=== PATIENT | male | born 1945 | race Caucasian/White ===

== ENCOUNTER 2016-04-25 12:35 | Inpatient (IN) | payer MEDICARE ==
[2016-04-25] MEDS ORDERED: ASPIRIN 325 MG TAB PO STA (13:44)
--- NOTE | 2016-04-25 13:47 | ED ---
General Adult HPI - General Chief complaint: Upper Respiratory Infection Stated complaint: Coughing,GUANACO Time Seen by Provider: 04/25/16 13:22 Source: patient Mode of arrival: ambulatory Limitations: no limitations - History of Present Illness Initial comments: 71-year-old male presenting for evaluation of 2 weeks URI symptoms. He states that he was evaluated by his primary care physician at the onset and was given a 10 day course of unknown antibiotics which he completed. His symptoms did not improve and he went back to his primary care physician once again and was given a Z-Bakari and steroid shot. Since then his symptoms have continued to worsen with productive cough of clear sputum with occasional minimal blood. He further states there is associated heaviness worse on the right compared to the left without radiation. He denies any fevers or chills but admits to occasionally being diaphoretic. Patient is on home oxygen that it previously been 2 L and was switched to 1 L. Significant past medical history includes a right lower lobe lobectomy in February and he takes L request for her A. fib with RVR. He has had his influenza shot and pneumonia shot this year. Attempts to control symptoms with nebulized breathing treatments have been unsuccessful - Related Data Home Medications Medication Instructions Recorded Confirmed Pantoprazole Sodium [Protonix] 40 mg PO DAILY 12/15/15 04/25/16 amLODIPine BESYLATE/BENAZEPRIL 1 cap PO QAM 12/15/15 04/25/16 [Lotrel 5-10 mg Capsule] Cholecalciferol [Vitamin D3] 1,000 unit PO DAILY 02/20/16 04/25/16 Cinnamon Bark [Cinnamon] 500 mg PO DAILY 02/20/16 04/25/16 L.acidoph,Paracasei, B.lactis 1 tab PO DAILY 02/20/16 04/25/16 [Probiotic] Atorvastatin [Lipitor] 40 mg PO HS 02/27/16 04/25/16 Acetaminophen Tab [Tylenol Tab] 1,000 mg PO Q6HR PRN 04/25/16 04/25/16 Azithromycin [Zithromax] 500 mg PO DAILY 04/25/16 04/25/16 Diphenox-Atrop 2.5-0.025 mg 2 tab PO BID PRN 04/25/16 04/25/16 [Lomotil] Fluticasone/Salmeterol [Advair 1 inhalation PO RT-BID 04/25/16 04/25/16 500-50 Diskus] Lactobacillus Acidoph & Bulgar 1 packet PO DAILY 04/25/16 04/25/16 [Lactinex] Metoprolol Tartrate [Lopressor] 25 mg PO DAILY 04/25/16 04/25/16 Naproxen Sodium [Aleve] 220 mg PO Q12H PRN 04/25/16 04/25/16 hydrOXYzine PAMOATE [Vistaril] 25 - 50 mg PO QID PRN 04/25/16 04/25/16 Previous Rx's Medication Instructions Recorded Apixaban [Eliquis] 5 mg PO BID #60 tab 03/06/16 Citalopram Hydrobromide [CeleXA] 20 mg PO QAM tab 03/06/16 Dicyclomine [Bentyl] 10 mg PO BID cap 03/06/16 Digoxin [Lanoxin] 125 mcg PO DAILY #30 tab 03/06/16 Docusate [Colace] 100 mg PO DAILY PRN #0 cap 03/06/16 Doxepin [SINEquan] 20 mg PO HS cap 03/06/16 Ipratropium-Albuterol Nebulize 3 ml INHALATION RT-Q2H PRN 120 Days 03/06/16 [Duoneb 0.5 mg-3 mg/3 ml Soln] Sodium Chloride 0.65% Nasal [Deep 2 spray NASAL QID PRN #0 spray 03/06/16 Sea] Tamsulosin [Flomax] 0.4 mg PO QAM cap.er.24h 03/06/16 Thiamine [Vitamin B-1] 100 mg PO BID tab 03/06/16 rOPINIRole HCL [Requip] 1 mg PO HS tab 03/06/16 traMADol HCl [Ultram] 50 mg PO QID PRN #60 tab 03/06/16 Allergies Allergy/AdvReac Type Severity Reaction Status Date / Time iodine Allergy Nausea Verified 04/25/16 13:53 hydrocodone [From [place]] AdvReac Unknown Verified 04/25/16 13:53 Review of Systems ROS Statement: Those systems with pertinent positive or pertinent negative responses have been documented in the HPI. General: Patient denies fever, chills,nausea, or vomiting. HEENT: No visual changes. No eye pain. No nasal symptoms. No dysphagia.No odynophagia. No ENT pain. Cardiac: Right chest heaviness. No palpitations. Positive diaphoresis. Pulmonary; positive exertional shortness of breath and with prolonged coughing. Productive cough of clear sputum with an occasion of minimal hemoptysis GI: No abdominal pain. No diarrhea. No constipation. No bowel habit changes. No melena. No hematochezia. : No dysuria.No hematuria. No hesitancy. No urgency. No renal lithiasis history. Musculoskeletal: No musculoskeletal pain. Orthopedic: Denies fracture history. Integumentary: Denies rash. Denies pruritis. Neurologic: Denies any lateralizing weakness. Denies numbness. Denies tingling. No seizure activity. Denies TIA or CVA. Heme/Onc: Denies anemia. Denies cancer. Denies adenopathy. ROS Other: All systems not noted in ROS Statement are negative. Past Medical History Past Medical History: Coronary Artery Disease (CAD), Hyperlipidemia, Hypertension, Thyroid Disorder Additional Past Medical History / Comment(s): LOBECTOMY FOR LUNG CANCER History of Any Multi-Drug Resistant Organisms: None Reported Past Surgical History: Adenoidectomy, Appendectomy, Cholecystectomy, Heart Catheterization With Stent, Tonsillectomy Additional Past Surgical History / Comment(s): bilateral knee surgery, CARDIAC STENT- -2007, 02-27-16 ROBOTIC ASSISTED RT THOROSCOPY/RT UPPER LOBECTOMY / LYMPH NODE DISECTION. Past Anesthesia/Blood Transfusion Reactions: No Reported Reaction Date of Last Stent Placement:: 2007 Past Psychological History: Anxiety Smoking Status: Former smoker Past Alcohol Use History: Daily Additional Past Alcohol Use History / Comment(s): 2-3 beers per day Past Drug Use History: None Reported - Past Family History Mother Family Medical History: Cancer Additional Family Medical History / Comment(s): breast and lung cancer General Exam - General Exam Comments Initial Comments: General: The patient is awake and alert, in no distress, and does not appear acutely ill. Eye: Pupils are equal, round and reactive to light, extra-ocular movements are intact; there is normal conjunctiva bilaterally. No signs of icterus. Ears, nose, mouth and throat: There are moist mucous membranes and no oral lesions. Neck: The neck is supple, there is no tenderness or JVD. Cardiovascular: There is a regular rate and rhythm. No murmur, rub or gallop is appreciated. Respiratory: Lungs are clear to auscultation, respirations are non-labored, breath sounds are equal. No wheezes, stridor, rales, or rhonchi. Gastrointestinal: Soft, non-distended, non-tender abdomen without masses or organomegaly noted. There is no rebound or guarding present. No CVA tenderness. Bowel sounds are unremarkable. Back: There is no tenderness to palpation in the midline. There is no obvious deformity. No rashes noted. Musculoskeletal: Normal ROM, no tenderness, There is no pedal edema. There is no calf tenderness or swelling. Sensation intact. Pulses equal bilaterally 2+. Neurological: CN II-XII intact, There are no obvious motor or sensory deficits. Coordination appears grossly intact. Speech is normal. Skin: Skin is warm and dry and no rashes or lesions are noted. Psychiatric: Cooperative, appropriate mood & affect, normal judgment. Limitations: no limitations Course Vital Signs 04/25/16 04/25/16 04/25/16 13:07 13:23 17:51 Temperature 97.9 F Pulse Rate 55 L 62 Respiratory 20 18 18 Rate Blood Pressure 106/58 111/64 O2 Sat by Pulse 95 99 Oximetry 04/25/16 22:57 Temperature 97.0 F L Pulse Rate 77 Respiratory 18 Rate Blood Pressure 139/75 O2 Sat by Pulse 92 L Oximetry EKG Findings - EKG Comments: EKG Findings:: EKG shows sinus bradycardia with a rate of 54, MICHA 174, QRS 90, QT/QTC 404/383 Medical Decision Making - Medical Decision Making 71-year-old male with a past medical history of lobectomy in February and taking liquids for proximal atrial fibrillation presented for evaluation of URI symptoms and shortness of breath for the last 2 weeks. He has been seen by his primary care physician and treated with steroids and 2 courses of antibiotics( Levaquin and a Z-Bakari) without any improvement in his symptoms. Concern for pneumonia versus ACS versus PE among others. We'll obtain labs, EKG, chest x- ray, and provided aspirin. Labs revealed a leukocytosis but otherwise no significant abnormalities, including a normal d-dimer. Chest x-ray is read as: Correlate to exclude pulmonary venous hypertension and interstitial edema. Chronic elevation of the hemidiaphragm. Patient was walked in the hallway and had an immediate desaturation from 95% down to 84% oxygenation. Upon resting his oxygen saturation improved back to normal. Given his significant past medical history of lobectomy and 2 weeks of shortness of breath with productive cough and and an episode of hemoptysis will admit for further care and evaluation. As informed of these results and this decision and agreed with this plan of care. Dr. Marcial accepted the admission without any further request. Admission order placed in bed request submitted. - Lab Data Result diagrams: 04/25/16 14:09 04/25/16 14:09 Lab Results 04/25/16 04/25/16 04/25/16 Range/Units 14:09 14:09 14:09 WBC 15.0 H (3.8-10.6) k/uL RBC 4.82 (4.30-5.90) m/uL Hgb 14.4 (13.0-17.5) gm/dL Hct 43.7 (39.0-53.0) % MCV 90.7 (80.0-100.0) fL MCH 29.9 (25.0-35.0) pg MCHC 32.9 (31.0-37.0) g/dL RDW 13.5 (11.5-15.5) % Plt Count 242 (150-450) k/uL Neutrophils % 78 % Lymphocytes % 12 % Monocytes % 7 % Eosinophils % 1 % Basophils % 1 % Neutrophils # 11.6 H (1.3-7.7) k/uL Lymphocytes # 1.7 (1.0-4.8) k/uL Monocytes # 1.1 H (0-1.0) k/uL Eosinophils # 0.2 (0-0.7) k/uL Basophils # 0.1 (0-0.2) k/uL PT (9.0-12.0) sec INR (<1.1) APTT (22.0-30.0) sec D-Dimer (<0.60) mg/L FEU Sodium 141 (137-145) mmol/L Potassium 4.6 (3.5-5.1) mmol/L Chloride 106 (98-107) mmol/L Carbon Dioxide 24 (22-30) mmol/L Anion Gap 11 mmol/L BUN 17 (9-20) mg/dL Creatinine 0.84 (0.66-1.25) mg/dL Est GFR (MDRD) Af Amer >60 (>60 ml/min/1.73 sqM) Est GFR (MDRD) Non-Af >60 (>60 ml/min/1.73 sqM) Glucose 82 (74-99) mg/dL Calcium 9.3 (8.4-10.2) mg/dL Troponin I (0.000-0.034) ng/mL NT-Pro-B Natriuret Pep pg/mL Influenza Type A RNA Not Detected (Not Detectd) Influenza Type B (PCR) Not Detected (Not Detectd) 04/25/16 04/25/16 04/25/16 Range/Units 14:09 14:09 14:09 WBC (3.8-10.6) k/uL RBC (4.30-5.90) m/uL Hgb (13.0-17.5) gm/dL Hct (39.0-53.0) % MCV (80.0-100.0) fL MCH (25.0-35.0) pg MCHC (31.0-37.0) g/dL RDW (11.5-15.5) % Plt Count (150-450) k/uL Neutrophils % % Lymphocytes % % Monocytes % % Eosinophils % % Basophils % % Neutrophils # (1.3-7.7) k/uL Lymphocytes # (1.0-4.8) k/uL Monocytes # (0-1.0) k/uL Eosinophils # (0-0.7) k/uL Basophils # (0-0.2) k/uL PT 10.3 (9.0-12.0) sec INR 1.0 (<1.1) APTT 22.5 (22.0-30.0) sec D-Dimer 0.24 (<0.60) mg/L FEU Sodium (137-145) mmol/L Potassium (3.5-5.1) mmol/L Chloride (98-107) mmol/L Carbon Dioxide (22-30) mmol/L Anion Gap mmol/L BUN (9-20) mg/dL Creatinine (0.66-1.25) mg/dL Est GFR (MDRD) Af Amer (>60 ml/min/1.73 sqM) Est GFR (MDRD) Non-Af (>60 ml/min/1.73 sqM) Glucose (74-99) mg/dL Calcium (8.4-10.2) mg/dL Troponin I <0.012 (0.000-0.034) ng/mL NT-Pro-B Natriuret Pep 71 pg/mL Influenza Type A RNA (Not Detectd) Influenza Type B (PCR) (Not Detectd) Disposition Clinical Impression: Shortness of breath, Hypoxia Disposition: ADMITTED IP TO THIS [facility] Decision to Admit Reason: Admit from EC Decision Date: 04/25/16 Decision Time: 17:06
[2016-04-25 14:29] LABS: Basophils # (A) 0.1 k/uL (0-0.2); Basophils % (A) 1 %; CH 30.7; CHCM 34.1; Eosinophils # (A) 0.2 k/uL (0-0.7); Eosinophils % (A) 1 %; HCT 43.7 % (39.0-53.0); HDW 2.91; HGB 14.4 gm/dL (13.0-17.5); Luc # (Auto) 0.29; Luc % (Auto) 2; Lymphocytes # (A) 1.7 k/uL (1.0-4.8); Lymphocytes % (A) 12 %; MCH 29.9 pg (25.0-35.0); MCHC 32.9 g/dL (31.0-37.0); MCV 90.7 fL (80.0-100.0); Mean Platelet Volume 8.7; Monocytes # (A) 1.1 k/uL (0-1.0); Monocytes % (A) 7 %; Neutrophils # (A) 11.6 k/uL (1.3-7.7); Neutrophils % (A) 78 %; RBC 4.82 m/uL (4.30-5.90); RDW 13.5 % (11.5-15.5); WBC (Perox) 14.81
[2016-04-25 14:39] LABS: Anion Gap 11 mmol/L; Blood Urea Nitrogen 17 mg/dL (9-20); Calcium 9.3 mg/dL (8.4-10.2); Carbon Dioxide 24 mmol/L (22-30); Chloride 106 mmol/L (98-107); Glucose 82 mg/dL (74-99); Non-African American GFR(MDRD) >60 (>60 ml/min/1.73 sqM); Potassium 4.6 mmol/L (3.5-5.1); Sodium 141 mmol/L (137-145)
[2016-04-25 14:46] LABS: Partial Thromboplastin Time 22.5 sec (22.0-30.0); Prothrombin Time 10.3 sec (9.0-12.0)
--- NOTE | 2016-04-25 14:47 | XR ---
EXAMINATION TYPE: XR chest 2V DATE OF EXAM: 04/25/2016 2:27 PM COMPARISON: Prior chest x-ray third March 2016 HISTORY: Cough and shortness of breath TECHNIQUE: Frontal and lateral views of the chest are obtained. FINDINGS: There is chronic elevation of the right hemidiaphragm. Cardiomediastinal silhouette, pulmo nary vascularity and deann are stable. Interstitium is increased. No evident pneumothorax or pleural e ffusion. IMPRESSION: Correlate to exclude pulmonary venous hypertension and interstitial edema. Chronic eleva tion of the hemidiaphragm, follow-up recommended.
[2016-04-25] MEDS ORDERED: ONDANSETRON 4 MG/2 ML VIAL IVP PRN (16:13)
[2016-04-25] MEDS ORDERED: ACETAMINOPHEN TAB 325 MG TAB PO PRN (16:13)
[2016-04-25] MEDS ORDERED: NALOXONE 0.4 MG/ML 1 ML VIAL IV PRN (16:13)
[2016-04-25] MEDS ORDERED: DIPHENOX-ATROP 2.5-0.025 MG 1 EACH TAB PO PRN (16:16)
[2016-04-25] MEDS: SYMBICORT 160-4.5 MCG INHALER INHALATION SCH (22:43)
[2016-04-26] MEDS: DICYCLOMINE 10 MG CAP PO SCH ×3 (01:13→21:29)
[2016-04-26] MEDS: APIXABAN 5 MG TAB PO SCH ×3 (01:13→22:21)
[2016-04-26] MEDS: THIAMINE 100 MG TAB PO SCH ×3 (01:14→21:29)
[2016-04-26] MEDS: ATORVASTATIN 40 MG TAB PO SCH ×2 (01:14→22:21)
[2016-04-26] MEDS: DOXEPIN 10 MG CAP PO SCH ×2 (01:14→22:21)
[2016-04-26] MEDS: SYMBICORT 160-4.5 MCG INHALER INHALATION SCH ×2 (06:27→20:28)
[2016-04-26] MEDS: IPRATROPIUM-ALBUTEROL 3 ML NEB INHALATION PRN ×2 (06:27→10:46)
[2016-04-26 06:32] VITALS: BMI 27.1
[2016-04-26 07:43] LABS: Basophils # (A) 0.1 k/uL (0-0.2); Basophils % (A) 1 %; CH 30.2; CHCM 32.9; Eosinophils # (A) 0.3 k/uL (0-0.7); Eosinophils % (A) 2 %; HCT 46.4 % (39.0-53.0); HDW 2.88; Luc # (Auto) 0.21; Luc % (Auto) 2; Lymphocytes # (A) 1.7 k/uL (1.0-4.8); Lymphocytes % (A) 12 %; MCH 29.7 pg (25.0-35.0); MCHC 32.3 g/dL (31.0-37.0); Mean Platelet Volume 8.8; Monocytes % (A) 7 %; Neutrophils # (A) 10.6 k/uL (1.3-7.7); Neutrophils % (A) 77 %; RBC 5.04 m/uL (4.30-5.90); RDW 13.5 % (11.5-15.5); WBC 13.8 k/uL (3.8-10.6); WBC (Perox) 13.23
[2016-04-26 07:59] LABS: Anion Gap 9 mmol/L; Blood Urea Nitrogen 18 mg/dL (9-20); Calcium 9.2 mg/dL (8.4-10.2); Carbon Dioxide 27 mmol/L (22-30); Chloride 104 mmol/L (98-107); Glucose 113 mg/dL (74-99); Non-African American GFR(MDRD) >60 (>60 ml/min/1.73 sqM); Phosphorous 3.9 mg/dL (2.5-4.5); Potassium 3.9 mmol/L (3.5-5.1); Sodium 140 mmol/L (137-145)
--- NOTE | 2016-04-26 08:19 | XR ---
EXAMINATION TYPE: XR chest 2V DATE OF EXAM: 04/26/2016 8:13 AM COMPARISON: 04/25/2016 HISTORY: Shortness of breath TECHNIQUE: Frontal and lateral views of the chest are obtained. FINDINGS: Scattered senescent parenchymal changes noted. Hyperinflation compatible with COPD. There is prominen ce of the pulmonary interstitium. Chronic elevation right hemidiaphragm. No evidence for infiltrate. No evidence for atelectasis. Heart size is stable. Mediastinal structures are stable and grossly unremarkable. No evidence for hilar prominence. Degenerative changes dorsal spine. IMPRESSION: 1. No evidence for acute pulmonary disease.
[2016-04-26] MEDS: amLODIPine 5 MG TAB PO SCH (09:08)
[2016-04-26] MEDS: TAMSULOSIN 0.4 MG CAP.ER.24H PO SCH (09:08)
[2016-04-26] MEDS: PANTOPRAZOLE 40 MG TABLET PO SCH (09:08)
[2016-04-26] MEDS: CITALOPRAM HYDROBROMIDE 20 MG TAB PO SCH (09:09)
[2016-04-26] MEDS: AZITHROMYCIN 500 MG TAB PO SCH (09:09)
[2016-04-26] MEDS: METOPROLOL TARTRATE 25 MG TAB PO SCH (09:10)
[2016-04-26] MEDS: DIGOXIN 125 MCG TAB PO SCH (09:10)
[2016-04-26] MEDS: LISINOPRIL 10 MG TAB PO SCH (09:10)
[2016-04-26] MEDS ORDERED: SODIUM CHLORIDE 0.65% NASAL SPRAY 44 ML BTL NASAL PRN (12:06)
[2016-04-26] MEDS ORDERED: traMADol 50 MG TAB PO PRN (12:06)
[2016-04-26] MEDS ORDERED: IPRATROPIUM-ALBUTEROL 3 ML NEB INHALATION SCH (12:15)
[2016-04-26] MEDS: methylPREDNISolone SOD SUCCI 40 MG/ML 1 ML VIAL IV SCH ×2 (13:45→23:40)
[2016-04-26] MEDS: LORATADINE 10 MG TAB PO SCH ×2 (13:50→21:30)
[2016-04-26] MEDS: IPRATROPIUM-ALBUTEROL 3 ML NEB INHALATION SCH ×3 (15:20→20:28)
[2016-04-26] MEDS: INSULIN LISPRO (humaLOG) 300 UNIT/3 ML VIAL SQ SCH ×2 (17:23→21:30)
[2016-04-26 17:24] LABS: Glucose,Whole Blood 140 mg/dL (75-99)
--- NOTE | 2016-04-26 17:59 | HP ---
DATE OF ADMISSION: 04/25/2016 PRESENTING COMPLAINT: Cough and wheezing. HISTORY OF PRESENTING COMPLAINT: This is a very pleasant 71-year-old patient who follows with Dr. Shane. Patient's chronic stable medical conditions include restless leg syndrome, essential hypertension, benign prostatic hypertrophy, GERD, chronic insomnia, depression, coronary artery disease with history of stent to the right coronary artery, thyroid nodule, biopsy negative, irritable bowel syndrome, paroxysmal atrial fibrillation on Eliquis. Patient had right upper lobe lobectomy carried out by Dr. Paniagua on February 26 right upper lobe. Patient normally on home oxygen 1 liter. Three weeks ago, the patient started off with a cough. Some clear sputum production and wheezing. Was given a steroid antibiotics shot and also shot ( ) the Levaquin and did feel better for 2 to 3 days and actually became worse again. The patient's developed cold-like symptoms. The patient again has got having bouts of coughing, especially when he talks. Some clear sputum. No fever. Appetite is maintained. Oxygen requirements has gone up to 2 liters. Gets short of breath when he takes of his oxygen and decided to come in. REVIEW OF SYSTEMS: CONSTITUTIONAL: Tired. HEENT: Nasal stuffiness. RESPIRATORY: As above. CARDIOVASCULAR: None. GASTROINTESTINAL: None. GENITOURINARY: None. MUSCULOSKELETAL: None. Dermatologic: None. HEMATOLOGIC: None. LYMPHATICS: None. PSYCHIATRY: Some anxiety. NEUROLOGICAL: None. Past medical history of paroxysmal atrial fibrillation and right superficial thrombophlebitis of the arm, chronic respiratory failure, on 1 liter of oxygen at home. Irritable bowel syndrome, thyroid nodule, biopsy negative, coronary artery disease with prior history of stent to the RCA, chronic obstructive pulmonary disease in an ex-smoker, depression, chronic insomnia, GERD, BPH, essential hypertension, restless leg syndrome, chronically elevated right diaphragm, wedge resection right upper lobe mass, partial pneumonectomy. PAST SURGICAL HISTORY: Adenoidectomy, appendectomy, cholecystectomy, cardiac cath with stent, bilateral knee surgery, cardiac stent to RCA 2007. SOCIAL HISTORY: The patient stopped smoking about 6 years ago The patient smoked an average a pack and a half day for about 45 years, stopped about 6 to ago, drinks about 2 to 3 beers a day. . Now retired. Family history of breast and lung cancer. HOME MEDICATIONS: 1. ( ) spray q.i.d. p.r.n. 2. Aleve 220 mg p.o. q.12 p.r.n. 3. Thiamine 100 mg p.o. b.i.d. 4. Tylenol 1000 mg q.6 p.r.n. 5. Cinnamon ( ) mg p.o. daily. 6. Vitamin D 3000 units p.o. daily. 7. Ultram 50 milligrams p.o. q.i.d. p.r.n. 8. Requip 1 mg p.o. q.h.s. 9. Flomax 0.4 mg p.o. daily. 10. Probiotic 1 tablet p.o. daily. 11. Vistaril ( ) mg p.o. t.i.d. p.r.n. 12. Protonix 40 mg p.o. daily. 13. Lactinex one packet p.o. daily. 14. Duoneb q.2 p.r.n. 15. Eliquis 5 mg p.o. b.i.d. 16. Sinequan 220 mg q.h.s. 17. Colace 100 mg p.o. daily p.r.n. 18. Lomotil 2 tablets p.o. b.i.d. p.r.n. 19. Digoxin 125 mcg p.o. daily. 20. Bentyl 10 mg p.o. b.i.d. 21. Celexa 20 mg p.o. daily. 22. Lotrel 5/10 1 tablet p.o. daily. 23. Advair 550, 1 puff b.i.d. 24. Lipitor 40 mg p.o. q.h.s. 25. Zithromax 500 mg p.o. daily. 26. Lopressor 25 p.o. daily. ALLERGIES TO IODINE HYDROCODONE. On examination vital signs on presentation: Temperature 97.9, pulse 55, respiration 20, blood pressure 106/58, pulse ox 95% on 1 liters. GENERAL APPEARANCE: Average built, sitting up, not in distress. EYES: Pupils equal. Conjunctivae normal. HEENT: Oral cavity normal. External appearance of nose and ears normal. NECK: JVD not raised. Mass not palpable. RESPIRATORY: Effort increased. LUNGS: Diminished breath sounds. Prolonged expiration. CARDIOVASCULAR: First and second sounds normal. No edema. ABDOMEN: Soft, nontender. Liver and spleen not palpable. LYMPHATIC: No lymph nodes palpable in neck or axillae. PSYCHIATRY: Alert and oriented times three. Mood and affect normal. NEUROLOGICAL: Grossly intact grossly intact. Power and sensation grossly intact. MUSCULOSKELETAL: Evidence of osteoarthritis especially in the hands. Dermatological: Some bruising in multiple places. INVESTIGATIONS: White count 15, hemoglobin 14.4. Potassium 4.6, BUN and creatinine are normal. Influenza negative. Chest x-ray shows slightly elevated right diaphragm, prominent radicular shadow. ASSESSMENT: 1. Acute on chronic obstructive pulmonary disease exacerbation probably from bilateral viral pneumonitis. Patient has no fever, sputum is clear and doubt secondary bacterial infection at this point. 2. History of right upper lobe lobectomy. 3. Chronically elevated right diaphragm following cardiothoracic surgery. 4. Restless leg syndrome, chronic. 5. Essential hypertension, chronic. 6. Benign prostatic hypertrophy, chronic. 7. Gastroesophageal reflux disease, chronic. 8. Chronic insomnia, idiopathic. 9. Depression controlled, not otherwise specified. 10. Coronary artery disease with prior history of stent of the RCA in 2007. 11. Thyroid nodule, biopsy negative, chronic. 12. Irritable bowel syndrome, chronic. 13. Chronic hypoxic respiratory failure on home at 1 liter of oxygen. 14. Paroxysmal atrial fibrillation, currently in sinus rhythm, chronically on Eliquis. PLAN: Care was discussed at length with the patient and . The patient will be put on bronchodilators, IV steroids. Home medications will be resumed. Dr. Roldan will be consulted. ( ) pneumonitis, this may take a while for these symptoms to resolve. Otherwise, empiric treatment is to continue.
[2016-04-26 20:22] LABS: Glucose,Whole Blood 153 mg/dL (75-99)
[2016-04-26 23:04] VITALS: RESP 18
[2016-04-27] MEDS: IPRATROPIUM-ALBUTEROL 3 ML NEB INHALATION SCH ×4 (01:55→12:07)
[2016-04-27 07:16] LABS: Glucose,Whole Blood 146 mg/dL (75-99)
[2016-04-27] MEDS: methylPREDNISolone SOD SUCCI 40 MG/ML 1 ML VIAL IV SCH (07:49)
[2016-04-27] MEDS: INSULIN LISPRO (humaLOG) 300 UNIT/3 ML VIAL SQ SCH ×2 (07:49→11:04)
[2016-04-27] MEDS: THIAMINE 100 MG TAB PO SCH (07:50)
[2016-04-27] MEDS: LISINOPRIL 10 MG TAB PO SCH (07:50)
[2016-04-27] MEDS: AZITHROMYCIN 500 MG TAB PO SCH (07:50)
[2016-04-27] MEDS: APIXABAN 5 MG TAB PO SCH (07:50)
[2016-04-27] MEDS: METOPROLOL TARTRATE 25 MG TAB PO SCH (07:50)
[2016-04-27] MEDS: TAMSULOSIN 0.4 MG CAP.ER.24H PO SCH (07:50)
[2016-04-27] MEDS: DIGOXIN 125 MCG TAB PO SCH (07:50)
[2016-04-27] MEDS: CITALOPRAM HYDROBROMIDE 20 MG TAB PO SCH ×2 (07:50→07:59)
[2016-04-27] MEDS: PANTOPRAZOLE 40 MG TABLET PO SCH (07:50)
[2016-04-27] MEDS: amLODIPine 5 MG TAB PO SCH (07:50)
[2016-04-27] MEDS: LORATADINE 10 MG TAB PO SCH (07:50)
[2016-04-27] MEDS: DICYCLOMINE 10 MG CAP PO SCH ×2 (07:50→08:00)
[2016-04-27 07:53] VITALS: BP 132/86; TEMP 97.7
[2016-04-27] MEDS: SYMBICORT 160-4.5 MCG INHALER INHALATION SCH (08:21)
--- NOTE | 2016-04-27 10:44 | P.CNPUL ---
History of Present Illness Consult date: 04/27/16 Requesting physician: Sanjeev Marcial Reason for consult: dyspnea, abnormal CXR/CT Chief complaint: Shortness of breath, cough, congestion History of present illness: This is a very pleasant 71-year-old gentleman who follows with Dr. Shane as his primary care physician. He has a history of coronary artery disease, hyperlipidemia, hypertension, thyroid disorder. He was also recently diagnosed with non-small cell lung cancer and is status post right upper lobectomy in February 2016 and has been following with Dr. Roldan in our office and saw him as recently as last week. At that time he was doing quite well however a few days later he developed increasing shortness of breath, cough and congestion. He also had issues with sinus congestion. He was treated at Dr. Shane's office with antibiotics and steroids 2 and didn't show much improvement and presented here to the emergency room for the same. He is seen today in consultation. He is x-ray quite improved now. He denies any worsening shortness of breath, cough or congestion. No fever chills or night sweats. His chest x-ray reveals no acute pulmonary process, chronically elevated right hemidiaphragm. Influenza screen was negative. He has been afebrile and maintaining good O2 saturations in the mid 90s on 2 L/m per nasal cannula. He is actually asking to go home. Review of Systems 14 point review of system was conducted. All negative other than as mentioned in HPI. Past Medical History Past Medical History: Coronary Artery Disease (CAD), Hyperlipidemia, Hypertension, Thyroid Disorder Additional Past Medical History / Comment(s): LOBECTOMY FOR LUNG CANCER History of Any Multi-Drug Resistant Organisms: None Reported Past Surgical History: Adenoidectomy, Appendectomy, Cholecystectomy, Heart Catheterization With Stent, Tonsillectomy Additional Past Surgical History / Comment(s): bilateral knee surgery, CARDIAC STENT- RCA-2007, 02-27-16 ROBOTIC ASSISTED RT THOROSCOPY/RT UPPER LOBECTOMY / LYMPH NODE DISECTION. Past Anesthesia/Blood Transfusion Reactions: No Reported Reaction Date of Last Stent Placement:: 2007 Past Psychological History: Anxiety Smoking Status: Former smoker Past Alcohol Use History: Daily Additional Past Alcohol Use History / Comment(s): 2-3 beers per day Past Drug Use History: None Reported - Past Family History Mother Family Medical History: Cancer Additional Family Medical History / Comment(s): breast and lung cancer Medications and Allergies Home Medications Medication Instructions Recorded Confirmed Type Pantoprazole Sodium [Protonix] 40 mg PO DAILY 12/15/15 04/25/16 History amLODIPine BESYLATE/BENAZEPRIL 1 cap PO QAM 12/15/15 04/25/16 History [Lotrel 5-10 mg Capsule] Cholecalciferol [Vitamin D3] 1,000 unit PO DAILY 02/20/16 04/25/16 History Cinnamon Bark [Cinnamon] 500 mg PO DAILY 02/20/16 04/25/16 History L.acidoph,Paracasei, B.lactis 1 tab PO DAILY 02/20/16 04/25/16 History [Probiotic] Atorvastatin [Lipitor] 40 mg PO HS 02/27/16 04/25/16 History Acetaminophen Tab [Tylenol Tab] 1,000 mg PO Q6HR PRN 04/25/16 04/25/16 History Azithromycin [Zithromax] 500 mg PO DAILY 04/25/16 04/25/16 History Diphenox-Atrop 2.5-0.025 mg 2 tab PO BID PRN 04/25/16 04/25/16 History [Lomotil] Fluticasone/Salmeterol [Advair 1 inhalation PO RT-BID 04/25/16 04/25/16 History 500-50 Diskus] Lactobacillus Acidoph & Bulgar 1 packet PO DAILY 04/25/16 04/25/16 History [Lactinex] Metoprolol Tartrate [Lopressor] 25 mg PO DAILY 04/25/16 04/25/16 History Naproxen Sodium [Aleve] 220 mg PO Q12H PRN 04/25/16 04/25/16 History hydrOXYzine PAMOATE [Vistaril] 25 - 50 mg PO QID PRN 04/25/16 04/25/16 History Allergies Allergy/AdvReac Type Severity Reaction Status Date / Time iodine Allergy Nausea Verified 04/25/16 13:53 hydrocodone [From [place]] AdvReac Unknown Verified 04/25/16 13:53 Physical Exam Vitals: Vital Signs Temp Pulse Pulse Resp BP Pulse Ox 04/27/16 08:36 84 04/27/16 08:21 84 96 04/27/16 07:00 97.7 F 84 18 132/86 91 L 04/26/16 23:03 98.2 F 79 18 116/64 90 L 04/26/16 20:43 80 04/26/16 20:28 78 04/26/16 15:31 80 04/26/16 15:20 80 04/26/16 15:00 98.3 F 68 16 109/67 94 L 04/26/16 10:56 84 04/26/16 10:46 82 Intake and Output 04/26/16 04/27/16 04/27/16 22:59 06:59 14:59 Intake Total 360 400 Balance 360 400 Intake: Oral 360 400 Other: Voiding Method Urinal Urinal # Voids 1 GENERAL EXAM: Alert, active, comfortable in no apparent distress. HEAD: Normocephalic. EYES: Normal reaction of pupils, equal size. NOSE: Clear with pink turbinates. THROAT: No erythema or exudates. NECK: No masses, no JVD. CHEST: No chest wall deformity. LUNGS: Equal air entry with no crackles, wheeze, rhonchi or dullness. Diminished in the right posterior base CVS: S1 and S2 normal with no audible murmurs, regular rhythm. ABDOMEN: No hepatosplenomegaly, normal bowel sounds, no guarding or rigidity. SPINE: No scoliosis or deformity SKIN: No rashes CENTRAL NERVOUS SYSTEM: No focal deficits, tone is normal in all 4 extremities. Extremities: There is no significant peripheral edema. No clubbing, no cyanosis. Peripheral pulses are intact. Results - Laboratory Findings CBC and BMP: 04/26/16 07:28 04/26/16 07:28 PT/INR, D-dimer PT 10.3 sec (9.0-12.0) 04/25/16 14:09 INR 1.0 (<1.1) 04/25/16 14:09 D-Dimer 0.24 mg/L FEU (<0.60) 04/25/16 14:09 Abnormal lab findings: Abnormal Labs 04/26/16 04/26/16 04/26/16 07:28 07:28 17:17 WBC 13.8 H Neutrophils # 10.6 H Glucose 113 H POC Glucose (mg/dL) 140 H 04/26/16 04/27/16 20:00 07:04 WBC Neutrophils # Glucose POC Glucose (mg/dL) 153 H 146 H - Diagnostic Findings Chest x-ray: image reviewed Assessment and Plan Plan: Impression: #1 Acute exacerbation of chronic obstructive pulmonary disease, complicated by purulent tracheobronchitis. No clear evidence of pneumonia. #2 Non-small cell lung cancer, status post right upper lobe resection in February 2016. #3 Postoperative right hemidiaphragmatic elevation secondary to volume loss in the setting of a right upper lobe resection. #4 Paroxysmal atrial fibrillation, rate controlled, on anticoagulation. #5 History of coronary artery disease. #6 Hyperlipidemia. #7 Hypertension. #8 Degenerative arthritis. Plan: The patient was seen and evaluated by Dr. Uribe. His chest x-ray and labs were reviewed. The patient is quite improved today as compared to yesterday. He is cleared for discharge from the pulmonary standpoint. He'll continue with his course of antibiotics, prednisone taper, Symbicort and bronchodilators. He'll follow-up with Dr. Roldan in our office in 1-2 weeks' time. He is encouraged to call sooner with any recurrence of symptoms or other questions or concerns.
[2016-04-27 10:56] LABS: Glucose,Whole Blood 102 mg/dL (75-99)
[2016-04-27 12:13] VITALS: PULSE 80
--- NOTE | 2016-04-28 13:55 | DS ---
DATE OF ADMISSION: 04/25/2016 DATE OF DISCHARGE: 04/27/2016 FINAL DIAGNOSES: 1. Acute chronic obstructive pulmonary disease exacerbation, possibly from bilateral viral pneumonitis. 2. History of right upper lobe lobectomy. 3. Chronically elevated right diaphragm. 4. Restless leg syndrome, chronic. 5. Essential hypertension, chronic. 6. Benign prostatic hypertrophy, chronic. 7. Gastroesophageal reflux disease, chronic. 8. Chronic insomnia, idiopathic. 9. Depression, controlled. 10. Coronary artery disease with prior history of stent to the right coronary artery in 2007. 11. Thyroid nodule, biopsy negative, chronic. 12. Irritable bowel syndrome, chronic. 13. Chronic hypoxic respiratory failure on home oxygen 1 L. 14. Paroxysmal atrial fibrillation, currently in sinus rhythm, chronically on Eliquis. HOSPITAL COURSE: This patient presented with COPD exacerbation secondary to viral pneumonitis. Responded well to nebulized bronchodilators, steroids. It was really felt that patient needed antibiotics. Seen by Dr. Uribe from Pulmonary. Doing better at the time of discharge. Care was discussed in detail with the patient. 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 On examination, lungs decreased breath sounds. Minimal wheezing. DISCHARGE MEDICATIONS: 1. Protonix 40 mg p.o. daily. 2. Lotrel 5-10 one capsule p.o. daily. 3. Vitamin D3 one thousand units p.o. daily. 4. Cinnamon 500 mg p.o. daily. 5. Probiotic 1 tablet p.o. daily. 6. Lipitor 40 mg p.o. q.h.s. 7. Eliquis 5 mg p.o. b.i.d. 8. Celexa 20 mg p.o. daily. 9. Digoxin 125 mcg p.o. daily. 10. Colace 100 mg p.o. daily. 11. Sinequan 20 mg q.h.s. 12. DuoNeb q.2 p.r.n. 13. Deep Sea spray q.i.d. p.r.n. 14. Flomax 0.4 mg p.o. daily. 15. Thiamine 100 mg p.o. b.i.d. 16. Requip 1 mg p.o. q.h.s. 17. Ultram 50 mg q.i.d. p.r.n. 18. Tylenol 1000 mg q.6 p.r.n. 19. Lomotil 2 tablets p.o. b.i.d. p.r.n. 20. Advair 500-50 one inhalation b.i.d. 21. Lactinex one packet p.o. daily. 22. Lopressor 25 p.o. daily. 23. Claritin 5 mg p.o. q.12. 24. Prednisone taper. Follow up with Dr. Shane on 04/29/2016. Follow up with Dr. Roldan 05/13/2016. Home oxygen 2 L. DC planning more than 35 minutes.
== END 2016-04-27 16:10 | disposition home or self-care (01) | DRG 190 ==
LOC: EC 12:35 → 4MS4W 16:19 → 5MS5E 04-26 01:37 → 5ONC 04-26 05:44
PROVIDERS: ADMIT Hospitalist; ATTEND Hospitalist
DX: J44.1 Chronic obstructive pulmonary disease with (acute) exacerbation (principal); J12.9 Viral pneumonia, unspecified; J96.11 Chronic respiratory failure with hypoxia; I48.0 Paroxysmal atrial fibrillation; Z99.81 Dependence on supplemental oxygen; G25.81 Restless legs syndrome; I10 Essential (primary) hypertension; F32.9 Major depressive disorder, single episode, unspecified; J44.0 Chronic obstructive pulmonary disease with (acute) lower respiratory infection; E78.5 Hyperlipidemia, unspecified; F51.04 Psychophysiologic insomnia; I25.10 Atherosclerotic heart disease of native coronary artery without angina pectoris; K21.9 Gastro-esophageal reflux disease without esophagitis; K58.9 Irritable bowel syndrome, unspecified; M19.90 Unspecified osteoarthritis, unspecified site; N40.0 Benign prostatic hyperplasia without lower urinary tract symptoms; F41.9 Anxiety disorder, unspecified; E04.1 Nontoxic single thyroid nodule; Z85.118 Personal history of other malignant neoplasm of bronchus and lung; Z87.891 Personal history of nicotine dependence; Z95.5 Presence of coronary angioplasty implant and graft; Z79.01 Long term (current) use of anticoagulants; Z79.899 Other long term (current) drug therapy; Z88.5 Allergy status to narcotic agent; Z91.041 Radiographic dye allergy status
CPT/HCPCS: 36415; 71020; 80048; 83735; 83880; 84100; 84484; 85025; 85379; 85610; 85730; 87502; 93005; 94640; 94760; 99284

== ENCOUNTER → 2016-07-26 | Outpatient (CLI) | payer MEDICARE ==
--- NOTE | 2016-07-26 15:35 | US ---
EXAMINATION TYPE: US thyroid st tissue head/neck DATE OF EXAM: 07/26/2016 1:44 PM COMPARISON: Ultrasound thyroid October 13, 2015. CLINICAL HISTORY: E04.1 Thyroid nodule. follow up on known nodules; pt states prior benign fnas GLAND SIZE: Right Lobe: 5.6 x 2.1 x 1.7 cm Overall Parenchyma: homogenous Left Lobe: 3.8 x 1.7 x 1.5 cm Overall Parenchyma: homogeneous Isthmus Thickness: 0.4 cm NODULES RIGHT: # of nodules measured on right: 2 1. 0.5 X 0.4 x 0.5 cm isoechoic mixed nodule at the lateral mid pole with well-defined margins. Th is nodule is wider than tall and shows no intranodular vascularity. Prior size: 0.3 x 0.2 x 0.2 cm 2. 1.4 X 1.0 x 1.3 cm hypoechoic solid nodule at the anterior lower pole with well-defined margins. This nodule is wider than tall and shows intranodular vascularity. Prior size: 1.4 x 1.3 x 1.0 cm LEFT: # of nodules measured on left: 3 1. 1.8 X 1.0 x 1.1 cm heterogeneous solid nodule at the anterior upper pole with well-defined jasper ns. This nodule is wider than tall and shows intranodular vascularity. Prior size: 2.3 x 1.3 x 1.1 cm 2. 0.9 X 0.4 x 0.6 cm mixed nodule at the lower pole with well-defined margins. This nodule is wid er than tall and shows no intranodular vascularity. Prior size: 0.8 x 0.7 x 0.5 cm 3. 0.5 X 0.4 x 0.4 cm isoechoic solid nodule at the mid pole with well-defined margins. This nodule is wider than tall and shows no intranodular vascularity. Prior size: 0.6 x 0.5 x 0.5 cm ISTHMUS: # of nodules measured in the isthmus: 0 Bilateral neck scanned, no evidence of lymphadenopathy. Thyroid gland remains within normal limits in size and fairly homogeneous in echotexture. There are m ultiple nodules redemonstrated bilaterally. Dominant nodules in right and left thyroid lobe are felt stable in size and appearance. They have been sampled in the past. No new nodules are evident. IMPRESSION: Thyroid gland remains normal in size with stable dominant nodules bilaterally that have been sampled, no new suspicious greater than 1 cm solid or cystic nodules are seen.
== END | disposition home or self-care (01) ==
LOC: RADUSWWP 13:25
PROVIDERS: ATTEND Otolaryngology
DX: E04.2 Nontoxic multinodular goiter (principal)
CPT/HCPCS: 76536

== ENCOUNTER → 2016-08-23 | Outpatient (CLI) | payer MEDICARE ==
--- NOTE | 2016-08-23 11:29 | CT ---
EXAMINATION TYPE: CT chest wo con DATE OF EXAM: 08/23/2016 10:50 AM COMPARISON: 03/03/2016 HISTORY: Malignant neoplasm of lung. COPD. CT DLP: 370.80 mGycm, Automated exposure control for dose reduction was used. CONTRAST: Performed injected with 0 mL of Omnipaque 300. TECHNIQUE: Axial images were obtained at 5 mm thick sections. Reconstructed images are reviewed on [employer] computer in the coronal plane. FINDINGS: There is a hypodensity within the right lobe thyroid could represent a cyst. This could be further evaluated with ultrasound. Emphysematous changes are at the lung apex. Mild emphysematous changes are within the bilateral lung dietz. Minimal subsegmental atelectasis is within the dependent portion right midlung. Emphysematous bulla are within the lung bases. There is a minimal right pleural effusion. Fullness from the right hilar region is diminished over the interval. A 0.7 cm nodule is faintly visualized on lung windows posterior medial left lung base. Additional 0.4 cm nodule within the posterior lateral left lung base, series 4 image 37. This may be better visuali ze the previous examination is slightly larger. Vascular calcification is within the aorta. No enlarged mediastinal or hilar adenopathy is evident. The ascending aorta diameter at the level o f the main pulmonary artery is 3.5 cm. The main pulmonary artery diameter at the bifurcation is 3.[address] sections are obtained through the upper abdomen. Abdomen is essentially unremarkable. IMPRESSIONS: 1. COPD. 2. There is a slightly enlarged 0.4 cm nodule left posterior lateral lung base. The posterior medial lung base nodule is stable from prior study. 3. Small left pleural effusion.
--- NOTE | 2016-08-23 11:59 | FL ---
EXAMINATION TYPE: FL sniff test without CXR DATE OF EXAM ORDERED: 08/23/2016 11:51 AM HISTORY: J44.9 COPD. COMPARISON: None. FINDINGS: There is paradoxical motion of the right hemidiaphragm with respect to the left. There is elevation of the right hemidiaphragm. IMPRESSION: EVIDENCE OF PARALYSIS OF THE RIGHT HEMIDIAPHRAGM.
== END | disposition home or self-care (01) ==
LOC: RADCTMAIN 10:03
PROVIDERS: ATTEND Internal Medicine Critical Care Medicine
DX: C34.90 Malignant neoplasm of unspecified part of unspecified bronchus or lung (principal); J98.6 Disorders of diaphragm; J44.9 Chronic obstructive pulmonary disease, unspecified; R91.8 Other nonspecific abnormal finding of lung field; J90 Pleural effusion, not elsewhere classified
CPT/HCPCS: 71250; 76000

== ENCOUNTER → 2017-02-16 | Outpatient (CLI) | payer MEDICARE ==
--- NOTE | 2017-02-16 10:05 | CT ---
EXAMINATION TYPE: CT chest wo con DATE OF EXAM: 02/16/2017 COMPARISON: 08/23/2016 HISTORY: Lung cancer CT DLP: 491 mGycm. Automated Exposure Control for Dose Reduction was Utilized. TECHNIQUE: CT scan of the thorax is performed without IV contrast. FINDINGS: Stable right-sided thyroid nodule measuring 1.3 cm. Changes of COPD and emphysema noted and appear stable. Right hilar soft tissue fullness is stable. La ck of contrast limits assessment. Subsegmental changes bilaterally most typical atelectasis. Findings suggest previous surgery on the right. 4 and 7 mm left lower lobe pulmonary nodules are stable. Biapical pleural thickening stable. Within the right lower lobe there is a 4 mm nodule axial image 25 which also appears to be stable. Ad ditional 1 cm nodule laterally is increased in size from the previous exam where it measured approxim ately 4 mm. 2 additional subpleural nodules measuring less than 5 mm are retrospectively stable. Uriah tional oval-shaped nodule measuring 3 mm right upper lobe axial image 25 retrospectively stable. Limited assessment of the upper abdomen demonstrates findings suggest previous surgical clips in the abdomen. DeGraff hypertrophic and degenerative changes spine noted. No destructive changes. Chronic a ppearing rib deformity on the right suggestive of previous fracture posterior laterally Stable 2.2 cm left adrenal lesion. IMPRESSION: 1. Multiple pulmonary nodules are stable with the exception of a single nodule along the lateral jose in of the right upper lobe on image 31 now measuring 1 cm and previously measuring 4 mm. 2. Diffuse COPD. 3. Left adrenal mass suspicious for metastasis appears stable measuring 2.2 cm. 4. Stable 1.3 cm right thyroid nodule. 5. indeterminate subcentimeter hypodense lesion by noncontrast exam involving the inferior pole the s pleen which is only partially included on the exam but appears to have been present on the previous e xam and stable.
== END | disposition home or self-care (01) ==
LOC: RADCTMAIN 08:44
PROVIDERS: ATTEND Internal Medicine Critical Care Medicine
DX: C34.90 Malignant neoplasm of unspecified part of unspecified bronchus or lung (principal); J44.9 Chronic obstructive pulmonary disease, unspecified; E04.1 Nontoxic single thyroid nodule
CPT/HCPCS: 71250

== ENCOUNTER → 2017-02-23 | Outpatient (CLI) | payer MEDICARE ==
--- NOTE | 2017-02-24 07:24 | US ---
EXAMINATION TYPE: US prostate transrectal DATE OF EXAM: 02/23/2017 COMPARISON: NONE CLINICAL HISTORY: R97.20 elevated PSA level. Patient states PSA levels went up and having an enlarged prostate. Patient states urinating often in the evening. This examination was performed using the transrectal probe. EXAM MEASUREMENTS: Gland Size: 4.6 x 4.7 x 3.0 cm Volume: 35.0 ml Predicted PSA: 4.2 Actual PSA (if available):6.3 Cystic appearing lesion borderline of central and peripheral zone = 0.8 x 1.0 x 0.6 cm . No suspiciou s lesions identified. Seminal vesicles are symmetric. IMPRESSION: Mild prostate glandular enlargement without suspicious lesion identified. Predicted PSA = volume x 0.12 ng/ml Calculated Volume = 0.5236 x L x W x H
== END | disposition home or self-care (01) ==
LOC: RADUSMAIN 07:37
PROVIDERS: ATTEND Family Medicine
DX: N40.0 Benign prostatic hyperplasia without lower urinary tract symptoms (principal)
CPT/HCPCS: 76872

== ENCOUNTER → 2017-05-19 | Outpatient (CLI) | payer MEDICARE ==
--- NOTE | 2017-05-19 12:38 | CT ---
EXAMINATION TYPE: CT chest wo con DATE OF EXAM: 05/19/2017 COMPARISON: Prior chest CT 02/16/2017 HISTORY: Lung carcinoma CT DLP: 376.90 mGycm. Automated Exposure Control for Dose Reduction was Utilized. TECHNIQUE: CT scan of the thorax is performed without IV contrast. FINDINGS: LUNGS: There is a pleural-based density on axial image 34 posterior laterally at the right lung base measuring approximately 18 mm in greatest anterior posterior dimension which is chronic in the interv al. Multiple additional lung nodules show a stable appearance. MEDIASTINUM: Lack of IV contrast is noted to limit evaluation for mediastinal and especially hilar ad enopathy. There is abnormal soft tissue mass present in the posterior aspect of the mediastinum on ax ial image 10 which is grown in the interval and measures approximately 2.5 cm in transverse dimension by 2.8 cm and abuts the posterior margin of the right subclavian artery and trachea No cardiomegaly or pericardial effusion is seen. OTHER: Left adrenal mass is incompletely evaluated but measures approximately 2.3 cm in transverse di mension similar to prior exam. Hypodense spleen lesion is stable. Surgical clips present status post cholecystectomy. Diverticular change is present associated with the colon. IMPRESSION: Interval increase in size in right lower lobe lung mass, mediastinal mass. Noncontrast ex am.
== END | disposition home or self-care (01) ==
LOC: RADCTMAIN 10:45
PROVIDERS: ATTEND Internal Medicine Critical Care Medicine
DX: C34.31 Malignant neoplasm of lower lobe, right bronchus or lung (principal); C38.3 Malignant neoplasm of mediastinum, part unspecified; Z91.041 Radiographic dye allergy status
CPT/HCPCS: 71250

== ENCOUNTER → 2017-06-04 | Outpatient (CLI) | payer MEDICARE ==
--- NOTE | 2017-06-05 15:25 | PE ---
EXAMINATION TYPE: PET CT fusion skull to thigh DATE OF EXAM: 06/04/2017 COMPARISON: CT chest 05/19/2017 Prior PET/CT: 01/24/2016 HISTORY: Lung cancer, lobectomy TECHNIQUE: Following the intravenous administration of 13.5-2 mCi of F-18 FDG, whole body images are performed from the skull base to the midthigh. Images are reviewed on the computer in the coronal, axial, and sagittal planes. Reconstructed rotating images are created on independent workstation and reviewed on the computer. A localization and attenuation correction CT is performed in conjunction with the PET scan. DLP: 470.85 mGycm SCAN: Subsequent follow-up Blood glucose: 87 mg/dL Average Mediastinum SUV: 1.31 Average Liver SUV: 1.96 FINDINGS: NECK: No abnormal uptake THORAX: Marked increased radiotracer accumulation within the right paratracheal region. This has an S UV value of 4.8 compatible with neoplasm. There is some uptake within the parascapular musculature wh ich may be related to motion. There is focal increased radiotracer accumulation SUV value 6.59 posterior lateral right lung base. T his is suspicious for a neoplastic process and appears new suspicious for metastasis. ABDOMEN: No abnormal uptake PELVIS: No abnormal uptake OSSEOUS STRUCTURES: There appears to be some focal uptake within the medial aspect of a anterior late ral right fifth rib. Image [address]: Mass the right apex mediastinum measures 2.3 x 1.9 cm. Some posterior lateral right lung base measures 2.8 x 1.1 cm. Image 91. The ascending thoracic aorta at the level of main pulmonary artery is 3.7 cm. The main pulmonary elis ry at the bifurcation is 3.3 cm. COMPARISON: Right lung base mass with increased radiotracer accumulation is a new finding suspicious for metastasis. Uptake within the anterior lateral right fifth rib is new suspicious for an osseous m etastasis. IMPRESSION: 1. Identification of the superior mediastinal mass with radiotracer compatible with neoplasm. 2. Two new areas suspicious for metastasis within the right posterior lateral lung base and within th e right lateral fifth rib.
== END | disposition home or self-care (01) ==
LOC: RADPETMAIN 14:13
PROVIDERS: ATTEND Internal Medicine Critical Care Medicine
DX: C34.90 Malignant neoplasm of unspecified part of unspecified bronchus or lung (principal); J98.59 Other diseases of mediastinum, not elsewhere classified
CPT/HCPCS: 78815; A9552

== ENCOUNTER 2017-06-28 08:50 | Day surgery (SDC) | payer MEDICARE ==
[2017-06-28 09:28] LABS: Mean Platelet Volume 8.9; Platelet Count 243 k/uL (150-450)
[2017-06-28 09:32] VITALS: TEMP 98
[2017-06-28] MEDS ORDERED: HYDROmorphone 2 MG TAB PO STA (09:35)
[2017-06-28 09:38] LABS: Prothrombin Time 9.8 sec (9.0-12.0)
--- NOTE | 2017-06-28 11:26 | XR ---
EXAMINATION TYPE: XR chest 1V portable DATE OF EXAM: 06/28/2017 COMPARISON: Prior chest x-ray 04/26/2016 HISTORY: Status post right lung biopsy TECHNIQUE: Single frontal view of the chest is obtained. FINDINGS: No interval change. IMPRESSION: No evident complication status post right lung biopsy.
--- NOTE | 2017-06-28 11:53 | CT ---
EXAMINATION TYPE: CT guided FNA DATE OF EXAM: 06/28/2017 COMPARISON: NONE HISTORY: FNA Rt Pulmonary Nodule CT DLP: 3320 mGycm The procedure is discussed with the patient, the risks, complications, benefits and alternatives, wer e discussed and any questions were answered. Informed consent was obtained. The patient is placed p siva on the CT table, prepped and draped in the usual sterile fashion. Utilizing a 22-gauge Chiba needle access into the right lobe mass was achieved with 2 passes performe d. Pathology confirmed adequate sample. All elements of maximal barrier technique were utilized. T he patient remained stable throughout the procedure with no immediate postprocedural complication. IMPRESSION: 1. Successful CT guided fine needle aspiration of a right lower lobe lung mass
[2017-06-28 12:40] VITALS: RESP 18
--- NOTE | 2017-06-28 13:41 | XR ---
EXAMINATION TYPE: XR chest 1V portable DATE OF EXAM: 06/28/2017 HISTORY: Status post lung biopsy, right lung COMPARISON: 06/28/2017 TECHNIQUE: Single view of the chest is submitted. FINDINGS: No evidence for pneumothorax right lung. Demonstrated are scattered senescent parenchymal change. Right-sided volume loss and right infrahilar masslike density. The heart is stable. Hilar and mediastinal structures are within normal limits. Degenerative changes are seen of the dorsal spine. IMPRESSION: 1. No evident complication status post right lung biopsy.
[2017-06-28 14:06] VITALS: BP 122/70; PULSE 84
== END 2017-06-28 14:21 ==
LOC: RADPROMAIN 08:50 → PROCWHC3 14:21
PROVIDERS: ATTEND Internal Medicine Critical Care Medicine
DX: R91.8 Other nonspecific abnormal finding of lung field (principal); Z91.041 Radiographic dye allergy status
CPT/HCPCS: 71045 ×2; 88305; 88173; 85049; 85610; 88342; 88341; 77012; 10022; G0463; 99203; 99213

== ENCOUNTER 2017-07-13 08:53 | Day surgery (SDC) | payer MEDICARE ==
[2017-07-13 09:31] LABS: Mean Platelet Volume 8.4; Platelet Count 271 k/uL (150-450)
[2017-07-13] MEDS ORDERED: ALPRAZolam 0.25 MG TAB PO STA (09:33)
[2017-07-13 09:44] LABS: Prothrombin Time 9.9 sec (9.0-12.0)
--- NOTE | 2017-07-13 11:35 | XR ---
EXAMINATION TYPE: XR chest 1V portable DATE OF EXAM: 07/13/2017 COMPARISON: Prior chest x-ray 06/28/2017 HISTORY: Status post right lung biopsy TECHNIQUE: Single frontal view of the chest is obtained. FINDINGS: There is no significant interval change. IMPRESSION: No evident complication status post right lung biopsy
[2017-07-13 12:13] VITALS: RESP 16
--- NOTE | 2017-07-13 13:23 | CT ---
EXAMINATION TYPE: CT biopsy lung RT core biopsy right lung mass DATE OF EXAM: 07/13/2017 HISTORY: Right lung mass COMPARISON: Nuclear medicine PET/CT 06/04/2017, CT chest 05/19/2017 Maximal barrier technique was utilized. The skin overlying a suitable path to the lesion was localiz ed using CT and the overlying skin was prepped and draped. Lidocaine used for local anesthesia. A s kin wayne made with a scalpel. Using CT guidance, access was gained to the lesion with a 18-gauge cor e needle through a 17-gauge guide. Core specimen submitted to cytology. Single pass performed. Follo wing the procedure no immediate complications. The patient is discharged in stable condition. Hemo stasis achieved. IMPRESSION: SUCCESSFUL CT GUIDED CORE LUNG BIOPSY. PATHOLOGY PENDING. THIS PROCEDURE WAS PERFORMED BY THE UNDER SIGNED.
[2017-07-13 13:50] VITALS: BP 109/69; PULSE 74; TEMP 98.8
--- NOTE | 2017-07-13 14:25 | XR ---
EXAMINATION TYPE: XR chest 1V portable DATE OF EXAM: 07/13/2017 COMPARISON: Prior chest x-ray 07/13/2017 HISTORY: Status post lung biopsy TECHNIQUE: Single frontal view of the chest is obtained. FINDINGS: No interval change IMPRESSION: No evident complication status post right lung biopsy.
== END 2017-07-13 14:40 | disposition home or self-care (01) ==
LOC: RADPROMAIN 08:53 → EDSTATUS 09:00 → RADPROMAIN 14:40
PROVIDERS: ATTEND Internal Medicine Hematology & Oncology
DX: C34.91 Malignant neoplasm of unspecified part of right bronchus or lung (principal); Z90.2 Acquired absence of lung [part of]; Z85.118 Personal history of other malignant neoplasm of bronchus and lung; Z99.81 Dependence on supplemental oxygen; I48.91 Unspecified atrial fibrillation; Z79.01 Long term (current) use of anticoagulants; J44.9 Chronic obstructive pulmonary disease, unspecified; Z87.891 Personal history of nicotine dependence; E78.5 Hyperlipidemia, unspecified; I10 Essential (primary) hypertension; Z80.3 Family history of malignant neoplasm of breast; Z80.1 Family history of malignant neoplasm of trachea, bronchus and lung; Z80.0 Family history of malignant neoplasm of digestive organs; Z79.51 Long term (current) use of inhaled steroids; Z79.899 Other long term (current) drug therapy; Z91.041 Radiographic dye allergy status; Z88.5 Allergy status to narcotic agent
CPT/HCPCS: 36415; 71045; 77012; 85049; 85610; 88305; 88341; 88342

== ENCOUNTER → 2017-10-01 | Outpatient (CLI) | payer MEDICARE ==
--- NOTE | 2017-10-02 12:19 | PE ---
Nuclear medicine PET/CT HISTORY: Lung carcinoma, subsequent Patient received 12.3 mCi F-18 FDG intravenously in delayed scanning was performed from the skull bas e to the mid thighs. Localization and attenuation correction CT scan was performed. Exam is correlate d to prior nuclear medicine PET/CT 06/04/2017 Neck and chest: No evident adenopathy within the neck, there is however in the supraclavicular region on the right a focus of hypermetabolic uptake, SUV is 4.3. The previously identified hypermetabolic uptake at the level of the upper mediastinum on the right is somewhat diminished as compared to prior exam, SUV is 5.3. Soft tissue lesion measures approximately 3.3 cm in anterior to posterior dimensio n which is increased compared to prior exam in the superior mediastinum. The subpleural mass seen on previous exam in the posterior costophrenic sulcus on the right measures 3 cm which has grown in the interval, SUV 7.1 some additional soft tissue density is present immediately posterior to this level, SUV 6.8.. Abdomen pelvis: No evident adrenal mass or suspicious hypermetabolic uptake. No retroperitoneal adeno fredy. Osseous structures: There is a focus of abnormal hypermetabolic uptake corresponding to a new lytic f ocus in the rib sixth rib anteriorly on the right, SUV is 9.7. IMPRESSION: New supraclavicular node on the right. New lytic rib focus, decreased intensity of abnorm alities as described.
== END | disposition home or self-care (01) ==
LOC: RADPETMAIN 08:28
PROVIDERS: ATTEND Internal Medicine Hematology & Oncology
DX: C34.11 Malignant neoplasm of upper lobe, right bronchus or lung (principal); R93.7 Abnormal findings on diagnostic imaging of other parts of musculoskeletal system; Z92.21 Personal history of antineoplastic chemotherapy
CPT/HCPCS: 78815; A9552

== ENCOUNTER 2017-12-28 04:48 | Emergency (ER) | payer MEDICARE ==
[2017-12-28] MEDS ORDERED: SODIUM CHLORIDE 0.9% 1,000 ML IV STA (05:08)
[2017-12-28] MEDS ORDERED: MORPHINE SULFATE 4 MG/ML SYRINGE IVP STA (05:19)
[2017-12-28 05:43] LABS: Basophils % (A) 1 %; Eosinophils # (A) 0.2 k/uL (0-0.7); Eosinophils % (A) 2 %; HCT 46.3 % (39.0-53.0); HGB 14.6 gm/dL (13.0-17.5); Lymphocytes # (A) 1.2 k/uL (1.0-4.8); Lymphocytes % (A) 14 %; MCH 31.7 pg (25.0-35.0); MCHC 31.5 g/dL (31.0-37.0); MCV 100.5 fL (80.0-100.0); Mean Platelet Volume 7.1; Monocytes # (A) 0.7 k/uL (0-1.0); Monocytes % (A) 8 %; Neutrophils # (A) 6.3 k/uL (1.3-7.7); Neutrophils % (A) 73 %; Platelet Count 276 k/uL (150-450); RBC 4.61 m/uL (4.30-5.90); RDW 13.4 % (11.5-15.5); WBC 8.6 k/uL (3.8-10.6)
--- NOTE | 2017-12-28 05:48 | ED ---
General Adult HPI - General Chief complaint: Extremity Problem,Nontraumatic Stated complaint: unable to move arms Time Seen by Provider: 12/28/17 05:06 Source: patient Mode of arrival: wheelchair Limitations: no limitations - History of Present Illness Initial comments: Joce is a 72-year-old gentleman with past medical history of lung cancer who presents the emergency department today for evaluation of worsening musculoskeletal pain. Patient reports that he was put on Opdivo infusion approximately 10 weeks ago, he reports that he has had 3 infusions in the past 10 weeks his most recent infusion was 3 weeks ago. She reports that after his first infusions he did develop some musculoskeletal pain, he followed up with the mid-level provider his oncology office who discontinued his statin and advised him to take Tylenol. Patient reports that initially Tylenol helped some of the pain. Patient reports the pain is worse in his shoulders, he also experiences pains in his hands and feet however he feels if he exercises his hands out pain doesn't improve. The pain in his shoulders does not improve with Tylenol or movement or exercise. He reports that over the past 2 weeks the pain is progressively worsened to the point where he feels now that he cannot even move his shoulder. Patient reports that 2 weeks ago his pain was manageable with Tylenol, he was able to play Court hole but since that time is become progressively more debilitated by this pain. Patient was reevaluated his oncologist office on Tuesday, they made a plan for outpatient MRI and he was prescribed by mouth [place]. Patient reports that he takes [place] throughout the evening yesterday last dose was at 1 AM this morning he said persistent pain and been unable to sleep due to the pain. - Related Data Home Medications Medication Instructions Recorded Confirmed Pantoprazole Sodium [Protonix] 40 mg PO DAILY 12/15/15 12/28/17 amLODIPine BESYLATE/BENAZEPRIL 1 cap PO QAM 12/15/15 12/28/17 [Lotrel 5-10 mg Capsule] Cholecalciferol [Vitamin D3] 5,000 unit PO DAILY 02/20/16 12/28/17 Cinnamon Bark [Cinnamon] 500 mg PO DAILY 02/20/16 12/28/17 Atorvastatin [Lipitor] 40 mg PO HS 02/27/16 12/28/17 Lactobacillus Acidoph & [place] 1 packet PO DAILY 04/25/16 12/28/17 [Lactinex] Metoprolol Tartrate [Lopressor] 25 mg PO DAILY 04/25/16 12/28/17 Mometasone/Formoterol [Dulera 200 2 puff INHALATION BID 06/16/17 12/28/17 Mcg/5 Mcg Inhaler] [place]-3 Fatty Acids/Fish Oil [Fish 1,200 mg PO DAILY 06/16/17 12/28/17 Oil 1,000 mg Softgel] Tiotropium 18 Mcg/Puff [Spiriva] 1 cap INHALATION DAILY 06/16/17 12/28/17 hydrOXYzine HCL 25 mg PO DAILY PRN 06/16/17 12/28/17 rOPINIRole HCL [Requip] 2 mg PO HS 06/16/17 12/28/17 Ipratropium-Albuterol Nebulize 3 ml INHALATION QID 07/07/17 12/28/17 [Duoneb 0.5 mg-3 mg/3 ml Soln] Thiamine [Vitamin B-1] 250 mg PO DAILY 07/07/17 12/28/17 Nivolumab [Opdivo] 480 mg IV QMONTH 12/28/17 12/28/17 Previous Rx's Medication Instructions Recorded Apixaban [Eliquis] 5 mg PO BID #60 tab 03/06/16 Citalopram Hydrobromide [CeleXA] 20 mg PO QAM tab 03/06/16 Doxepin [SINEquan] 20 mg PO HS cap 03/06/16 Tamsulosin [Flomax] 0.4 mg PO QAM cap.er.24h 03/06/16 Loratadine [Claritin] 5 mg PO Q12HR tab 04/27/16 Lidocaine 5% Patch [Lidoderm] 1 patch TOPICAL DAILY #30 patch 12/28/17 Allergies Allergy/AdvReac Type Severity Reaction Status Date / Time iodine Allergy Nausea Verified 07/13/17 09:27 hydrocodone [From [place]] AdvReac Unknown Verified 07/13/17 09:27 Review of Systems ROS Statement: Those systems with pertinent positive or pertinent negative responses have been documented in the HPI. ROS Other: All systems not noted in ROS Statement are negative. Past Medical History Past Medical History: Coronary Artery Disease (CAD), COPD, Hyperlipidemia, Hypertension, Thyroid Disorder Additional Past Medical History / Comment(s): LOBECTOMY FOR LUNG CANCER - Right , restless legs syndrome History of Any Multi-Drug Resistant Organisms: None Reported Past Surgical History: Adenoidectomy, Appendectomy, Cholecystectomy, Heart Catheterization With Stent, Tonsillectomy Additional Past Surgical History / Comment(s): bilateral knee surgery, CARDIAC STENT- RCA-2007, 02-27-16 ROBOTIC ASSISTED RT THOROSCOPY/RT UPPER LOBECTOMY / LYMPH NODE DISECTION. POST LUNG BIOPSY. Past Anesthesia/Blood Transfusion Reactions: No Reported Reaction Date of Last Stent Placement:: 2007 Past Psychological History: Anxiety, Depression Smoking Status: Former smoker Past Alcohol Use History: Daily Past Drug Use History: None Reported - Past Family History Mother Family Medical History: Cancer Additional Family Medical History / Comment(s): breast and lung cancer General Exam - General Exam Comments Initial Comments: GENERAL: Chronically ill-appearing elderly gentleman in moderate distress HENT: Normocephalic, Atraumatic. Neck is soft and supple. No significant lymphadenopathy is noted. Oropharynx is clear. Moist mucous membranes. Neck has full range of motion without eliciting any pain. EYES: The sclera were anicteric and conjunctiva were pink and moist. Extraocular movements were intact and pupils were equal round and reactive to light. Eyelids were unremarkable. PULMONARY: Unlabored respirations. No audible rales rhonchi or wheezing was noted. CARDIOVASCULAR: There is a regular rate and rhythm without any murmurs gallops or rubs. ABDOMEN: Soft and nontender with normal bowel sounds. SKIN: Skin is clear with no lesions or rashes and otherwise unremarkable. Very tanned skin NEUROLOGIC: Patient is alert and oriented x3. Cranial nerves II through XII are grossly intact. Motor and sensory are also intact. Normal speech, volume and content. Symmetrical smile. MUSCULOSKELETAL: Pain with range of motion of bilateral shoulders, pain with range of motion of right elbow - no overlying erythema or signs of joint infection LYMPHATICS: No significant lymphadenopathy is noted PSYCHIATRIC: Normal psychiatric evaluation. Limitations: no limitations Limitations: no limitations Course Vital Signs 12/28/17 12/28/17 04:50 06:01 Temperature 97.6 F Pulse Rate 79 63 Respiratory 22 18 Rate Blood Pressure 159/89 141/81 O2 Sat by Pulse 92 L 97 Oximetry Medical Decision Making - Medical Decision Making Patient seen and evaluated, history obtained from the patient Generalized musculoskeletal pain after starting new chemotherapeutic agent, pain is worse in his right shoulder, does have a known lesion in his left upper lung with concern for neurologic involvement causing the shoulder pain however does have pain in bilateral shoulders and hips hands and feet Labs are ordered, mildly elevated CPK Patient care was discussed with oncology ribbon cutter recommended giving the patient transdermal fentanyl patch, Lidoderm patch and follow-up with oncology outpatient. Patient should perform MRI as scheduled tomorrow. The patient is not agreeable to this plan we can admit for intractable cancer related pain. I offered the patient option for admission for intractable cancer pain versus discharge home with a no. At this time the patient prefer to be discharged home. I will prescribe Lidoderm for his musculoskeletal pain. All questions pertaining to care were answered best my ability, plan for follow-up with oncology outpatient and MRI as ordered tomorrow were discussed. Return parameters discussed. Patient discharged home in stable condition. - Lab Data Result diagrams: 12/28/17 05:30 12/28/17 05:30 Lab Results 12/28/17 12/28/17 12/28/17 Range/Units 05:30 05:30 06:33 WBC 8.6 (3.8-10.6) k/uL RBC 4.61 (4.30-5.90) m/uL Hgb 14.6 (13.0-17.5) gm/dL Hct 46.3 (39.0-53.0) % MCV 100.5 H (80.0-100.0) fL MCH 31.7 (25.0-35.0) pg MCHC 31.5 (31.0-37.0) g/dL RDW 13.4 (11.5-15.5) % Plt Count 276 (150-450) k/uL Neutrophils % 73 % Lymphocytes % 14 % Monocytes % 8 % Eosinophils % 2 % Basophils % 1 % Neutrophils # 6.3 (1.3-7.7) k/uL Lymphocytes # 1.2 (1.0-4.8) k/uL Monocytes # 0.7 (0-1.0) k/uL Eosinophils # 0.2 (0-0.7) k/uL Basophils # 0.0 (0-0.2) k/uL Sodium 138 (137-145) mmol/L Potassium 4.8 (3.5-5.1) mmol/L Chloride 105 (98-107) mmol/L Carbon Dioxide 24 (22-30) mmol/L Anion Gap 9 mmol/L BUN 16 (9-20) mg/dL Creatinine 0.75 (0.66-1.25) mg/dL Est GFR (CKD-EPI)AfAm >90 (>60 ml/min/1.73 sqM) Est GFR (CKD-EPI)NonAf >90 (>60 ml/min/1.73 sqM) Glucose 115 H (74-99) mg/dL Calcium 9.4 (8.4-10.2) mg/dL Total Bilirubin 0.5 (0.2-1.3) mg/dL AST 37 (17-59) U/L ALT 38 (21-72) U/L Alkaline Phosphatase 72 (38-126) U/L Creatine Kinase 311 H (55-170) U/L Total Protein 6.5 (6.3-8.2) g/dL Albumin 3.6 (3.5-5.0) g/dL Urine Color Light Yellow Urine Appearance Clear (Clear) Urine pH 5.5 (5.0-8.0) Ur Specific [place] 1.007 (1.001-1.035) Urine Protein Negative (Negative) Urine Glucose (UA) Negative (Negative) Urine Ketones Negative (Negative) Urine Blood Negative (Negative) Urine Nitrite Negative (Negative) Urine Bilirubin Negative (Negative) Urine Urobilinogen <2.0 (<2.0) mg/dL Ur Leukocyte Esterase Negative (Negative) Disposition Clinical Impression: Musculoskeletal pain, Cancer associated pain Disposition: HOME SELF-CARE Condition: Good Prescriptions: Lidocaine 5% Patch [Lidoderm] 1 patch TOPICAL DAILY #30 patch Is patient prescribed a controlled substance at d/c from ED?: No Referrals: Cooper Shane MD [Primary Care Provider] - 1-2 days
[2017-12-28 05:54] LABS: Albumin 3.6 g/dL (3.5-5.0); Anion Gap 9 mmol/L; Calcium 9.4 mg/dL (8.4-10.2); Carbon Dioxide 24 mmol/L (22-30); Chloride 105 mmol/L (98-107); Creatine Kinase 311 U/L (55-170); Glucose 115 mg/dL (74-99); Sodium 138 mmol/L (137-145); Total Bilirubin 0.5 mg/dL (0.2-1.3); Total Protein 6.5 g/dL (6.3-8.2)
[2017-12-28 06:11] LABS: ALT 38 U/L (21-72); AST 37 U/L (17-59); Alkaline Phosphatase 72 U/L (38-126); Blood Urea Nitrogen 16 mg/dL (9-20); Potassium 4.8 mmol/L (3.5-5.1)
[2017-12-28 06:48] LABS: Appearance,Urine Clear (Clear); Bilirubin,Urine Negative (Negative); Blood,Urine Negative (Negative); Color,Urine Light Yellow; Glucose,Urine (UA) Negative (Negative); Ketones,Urine Negative (Negative); Leukocyte Esterase,Urine Negative (Negative); Nitrite,Urine Negative (Negative); PH, Urine 5.5 (5.0-8.0); Protein,Urine Negative (Negative); Specific Gravity,Urine 1.007 (1.001-1.035); Urobilinogen,Urine <2.0 mg/dL (<2.0)
[2017-12-28] MEDS ORDERED: LIDOCAINE 5% PATCH TOPICAL STA (07:01)
--- NOTE | 2017-12-28 07:31 | XR ---
EXAMINATION TYPE: XR chest 2V DATE OF EXAM: 12/28/2017 COMPARISON: 07/13/2017 HISTORY: Shortness of breath TECHNIQUE: Frontal and lateral views of the chest are obtained. FINDINGS: Scattered senescent parenchymal changes noted. Hyperinflation compatible with COPD. Increased patchy density at the lung bases and increased interstitial prominence throughout the lungs which may reflect underlying interstitial pneumonitis. Chronic elevation right hemidiaphragm. Heart size is stable. Mediastinal structures are stable and grossly unremarkable. No evidence for hilar prominence. Degenerative changes dorsal spine. IMPRESSION: 1. Increased patchy density at the lung bases and increased interstitial prominence throughout the cherrie ngs which may reflect underlying interstitial pneumonitis.
[2017-12-28 07:54] VITALS: BP 124/83; PULSE 78; RESP 16; TEMP 97.8
== END 2017-12-28 07:53 | disposition home or self-care (01) ==
LOC: EC 04:48
DX: G89.3 Neoplasm related pain (acute) (chronic) (principal); C34.92 Malignant neoplasm of unspecified part of left bronchus or lung; M79.1 Myalgia; I25.10 Atherosclerotic heart disease of native coronary artery without angina pectoris; J44.9 Chronic obstructive pulmonary disease, unspecified; E78.5 Hyperlipidemia, unspecified; E03.9 Hypothyroidism, unspecified; F41.9 Anxiety disorder, unspecified; G25.81 Restless legs syndrome; F32.9 Major depressive disorder, single episode, unspecified; Z87.891 Personal history of nicotine dependence; Z90.2 Acquired absence of lung [part of]; Z90.49 Acquired absence of other specified parts of digestive tract; Z95.5 Presence of coronary angioplasty implant and graft; Z79.51 Long term (current) use of inhaled steroids; Z79.899 Other long term (current) drug therapy; Z88.5 Allergy status to narcotic agent; Z91.048 Other nonmedicinal substance allergy status
CPT/HCPCS: 36415; 71046; 80053; 81003; 82550; 85025; 96361; 96374; 99283

== ENCOUNTER 2017-12-29 12:50 | Inpatient (IN) | payer MEDICARE ==
[2017-12-29] MEDS ORDERED: SODIUM CHLORIDE 0.9% 500 ML IV STA (13:26)
--- NOTE | 2017-12-29 13:46 | ED ---
General Adult HPI - General Chief complaint: Weakness Stated complaint: weakness Time Seen by Provider: 12/29/17 13:00 Source: patient, RN notes reviewed, old records reviewed Mode of arrival: wheelchair Limitations: no limitations - History of Present Illness Initial comments: 72-year-old male history of lung cancer currently on immunotherapy presents for evaluation of fatigue and diffuse myalgia. Patient's symptoms have been progressive over the past 11 weeks. He was seen in the emergency department yesterday with similar symptoms. He received an outpatient MRI of the cervical spine just prior to presentation. He was instructed that if symptoms did not improve he should represent. Patient states that his primary care physician and his oncologist already symptoms. They have become quite debilitating. Patient is unable to move his right arm secondary to weakness and fatigue. He complains of bilateral hand, bilateral arm, bilateral leg pain. Denies chest pain or shortness of breath. Denies abdominal pain nausea or vomiting. He did have several episodes of diarrhea. No history of fever. - Related Data Home Medications Medication Instructions Recorded Confirmed Pantoprazole Sodium [Protonix] 40 mg PO DAILY 12/15/15 12/29/17 amLODIPine BESYLATE/BENAZEPRIL 1 cap PO QAM 12/15/15 12/29/17 [Lotrel 5-10 mg Capsule] Cholecalciferol [Vitamin D3] 5,000 unit PO DAILY 02/20/16 12/29/17 Cinnamon Bark [Cinnamon] 500 mg PO DAILY 02/20/16 12/29/17 Atorvastatin [Lipitor] 40 mg PO HS 02/27/16 12/29/17 Metoprolol Tartrate [Lopressor] 25 mg PO DAILY 04/25/16 12/29/17 Mometasone/Formoterol [Dulera 200 2 puff INHALATION RT-BID 06/16/17 12/29/17 Mcg/5 Mcg Inhaler] [place]-3 Fatty Acids/Fish Oil [Fish 1,200 mg PO DAILY 06/16/17 12/29/17 Oil 1,000 mg Softgel] Tiotropium 18 Mcg/Puff [Spiriva] 1 cap INHALATION DAILY 06/16/17 12/29/17 hydrOXYzine HCL 25 mg PO DAILY PRN 06/16/17 12/29/17 rOPINIRole HCL [Requip] 2 mg PO HS 06/16/17 12/29/17 Thiamine [Vitamin B-1] 250 mg PO DAILY 07/07/17 12/29/17 ALPRAZolam [Xanax] 0.5 mg PO DAILY PRN 12/29/17 12/29/17 Fentanyl Patch (Unknown Dose) 1 patch TOPICAL ONCE 12/29/17 12/29/17 Gabapentin [Neurontin] 200 mg PO HS 12/29/17 12/29/17 HYDROcodone/APAP 5-325MG [[place] 1 tab PO Q4HR PRN 12/29/17 12/29/17 5-325] L.acidoph,Paracasei, B.lactis 1 cap PO DAILY 12/29/17 12/29/17 [Probiotic] Prochlorperazine [Compazine] 10 mg PO Q6H 12/29/17 12/29/17 Previous Rx's Medication Instructions Recorded Apixaban [Eliquis] 5 mg PO BID #60 tab 03/06/16 Citalopram Hydrobromide [CeleXA] 20 mg PO QAM tab 03/06/16 Tamsulosin [Flomax] 0.4 mg PO QAM cap.er.24h 03/06/16 Loratadine [Claritin] 5 mg PO Q12HR tab 04/27/16 Lidocaine 5% Patch [Lidoderm] 1 patch TOPICAL DAILY #30 patch 12/28/17 Allergies Allergy/AdvReac Type Severity Reaction Status Date / Time cat dander Allergy Rash/Hives Verified 12/29/17 13:13 Iodinated Contrast- Oral and Allergy Verified 12/29/17 13:13 IV Dye iodine Allergy Nausea Verified 12/29/17 13:13 hydrocodone [From [place]] AdvReac Unknown Verified 12/29/17 13:13 Review of Systems ROS Statement: Those systems with pertinent positive or pertinent negative responses have been documented in the HPI. ROS Other: All systems not noted in ROS Statement are negative. Past Medical History Past Medical History: Coronary Artery Disease (CAD), COPD, Hyperlipidemia, Hypertension, Thyroid Disorder Additional Past Medical History / Comment(s): LOBECTOMY FOR LUNG CANCER - Right , restless legs syndrome History of Any Multi-Drug Resistant Organisms: None Reported Past Surgical History: Adenoidectomy, Appendectomy, Cholecystectomy, Heart Catheterization With Stent, Tonsillectomy Additional Past Surgical History / Comment(s): bilateral knee surgery, CARDIAC STENT- RCA-2007, 02-27-16 ROBOTIC ASSISTED RT THOROSCOPY/RT UPPER LOBECTOMY / LYMPH NODE DISECTION. POST LUNG BIOPSY. Past Anesthesia/Blood Transfusion Reactions: No Reported Reaction Date of Last Stent Placement:: 2007 Past Psychological History: Anxiety, Depression Smoking Status: Former smoker Past Alcohol Use History: Daily Past Drug Use History: None Reported - Past Family History Mother Family Medical History: Cancer Additional Family Medical History / Comment(s): breast and lung cancer General Exam Limitations: no limitations General appearance: alert, in no apparent distress Head exam: Present: atraumatic, normocephalic Eye exam: Present: normal appearance, PERRL, EOMI ENT exam: Present: mucous membranes dry Neck exam: Present: normal inspection. Absent: tenderness, meningismus Respiratory exam: Present: normal lung sounds bilaterally. Absent: respiratory distress, wheezes Cardiovascular Exam: Present: regular rate, normal rhythm GI/Abdominal exam: Present: soft. Absent: distended, tenderness Extremities exam: Present: normal inspection, other. Absent: full ROM Neurological exam: Present: alert, oriented X3, CN II-XII intact, motor sensory deficit (Patient is unable to lift the right upper extremity against gravity.) Psychiatric exam: Present: normal affect, normal mood Skin exam: Present: warm, dry, intact. Absent: cyanosis, diaphoretic Course Vital Signs 12/29/17 12/29/17 12:53 14:41 Temperature 98.4 F Pulse Rate 70 66 Respiratory 20 20 Rate Blood Pressure 123/74 127/67 O2 Sat by Pulse 93 L 100 Oximetry EKG Findings - EKG Comments: EKG Findings:: EKG: Normal sinus rhythm, rate of 67, OH interval 168, QRS duration 88, QTC 397, no ST segment elevation or depression Medical Decision Making - Medical Decision Making 72-year-old male presenting with diffuse myalgias, fatigue, and right upper extremity weakness. Symptoms have and progressive over many weeks. Patient has received workup both on ER visit and through his primary care physician. He received an outpatient MRI of the cervical spine today which is pending. Chest x-rays obtained yesterday during an ER visit, this did show concern for interstitial pneumonitis, no focal pneumonia. Patient has mild cytosis 11.4, hemoglobin is stable, electrolytes are within normal limits. CK is mildly elevated at 280. Patient's symptoms have been progressive however he is to the point of not being able to sleep secondary to pain and is unable to use his right arm secondary to pain and weakness. He will be admitted for pain control, his oncologist we placed on consult, admitting physician Dr. Marcial does request that vascular surgery be placed on consult for evaluation of right upper extremity weakness. - Lab Data Result diagrams: 12/29/17 13:52 12/29/17 13:52 Lab Results 12/29/17 12/29/17 12/29/17 Range/Units 13:52 13:52 13:52 WBC 11.4 H (3.8-10.6) k/uL RBC 4.58 (4.30-5.90) m/uL Hgb 14.4 (13.0-17.5) gm/dL Hct 45.4 (39.0-53.0) % MCV 99.0 (80.0-100.0) fL MCH 31.4 (25.0-35.0) pg MCHC 31.8 (31.0-37.0) g/dL RDW 13.1 (11.5-15.5) % Plt Count 265 (150-450) k/uL Neutrophils % 79 % Lymphocytes % 10 % Monocytes % 7 % Eosinophils % 1 % Basophils % 0 % Neutrophils # 9.0 H (1.3-7.7) k/uL Lymphocytes # 1.1 (1.0-4.8) k/uL Monocytes # 0.8 (0-1.0) k/uL Eosinophils # 0.2 (0-0.7) k/uL Basophils # 0.0 (0-0.2) k/uL PT (9.0-12.0) sec INR (<1.2) APTT (22.0-30.0) sec Sodium 135 L (137-145) mmol/L Potassium 4.7 (3.5-5.1) mmol/L Chloride 101 (98-107) mmol/L Carbon Dioxide 27 (22-30) mmol/L Anion Gap 7 mmol/L BUN 13 (9-20) mg/dL Creatinine 0.76 (0.66-1.25) mg/dL Est GFR (CKD-EPI)AfAm >90 (>60 ml/min/1.73 sqM) Est GFR (CKD-EPI)NonAf >90 (>60 ml/min/1.73 sqM) Glucose 94 (74-99) mg/dL Plasma Lactic Acid Alex[place] (0.7-2.0) mmol/L Calcium 9.3 (8.4-10.2) mg/dL Magnesium 1.8 (1.6-2.3) mg/dL Total Bilirubin 0.8 (0.2-1.3) mg/dL AST 51 (17-59) U/L ALT 56 (21-72) U/L Alkaline Phosphatase 83 (38-126) U/L Total Creatine Kinase 280 H (55-170) U/L CK-MB (CK-2) 9.7 H (0.0-2.4) ng/mL CK-MB (CK-2) Rel Index 3.5 Troponin I <0.012 (0.000-0.034) ng/mL Total Protein 6.3 (6.3-8.2) g/dL Albumin 3.7 (3.5-5.0) g/dL Urine Color Urine Appearance (Clear) Urine pH (5.0-8.0) Ur Specific [place] (1.001-1.035) Urine Protein (Negative) Urine Glucose (UA) (Negative) Urine Ketones (Negative) Urine Blood (Negative) Urine Nitrite (Negative) Urine Bilirubin (Negative) Urine Urobilinogen (<2.0) mg/dL Ur Leukocyte Esterase (Negative) 12/29/17 12/29/17 12/29/17 Range/Units 13:52 14:22 15:15 WBC (3.8-10.6) k/uL RBC (4.30-5.90) m/uL Hgb (13.0-17.5) gm/dL Hct (39.0-53.0) % MCV (80.0-100.0) fL MCH (25.0-35.0) pg MCHC (31.0-37.0) g/dL RDW (11.5-15.5) % Plt Count (150-450) k/uL Neutrophils % % Lymphocytes % % Monocytes % % Eosinophils % % Basophils % % Neutrophils # (1.3-7.7) k/uL Lymphocytes # (1.0-4.8) k/uL Monocytes # (0-1.0) k/uL Eosinophils # (0-0.7) k/uL Basophils # (0-0.2) k/uL PT 10.1 (9.0-12.0) sec INR 1.0 (<1.2) APTT 22.0 (22.0-30.0) sec Sodium (137-145) mmol/L Potassium (3.5-5.1) mmol/L Chloride (98-107) mmol/L Carbon Dioxide (22-30) mmol/L Anion Gap mmol/L BUN (9-20) mg/dL Creatinine (0.66-1.25) mg/dL Est GFR (CKD-EPI)AfAm (>60 ml/min/1.73 sqM) Est GFR (CKD-EPI)NonAf (>60 ml/min/1.73 sqM) Glucose (74-99) mg/dL Plasma Lactic Acid Alexis 1.1 (0.7-2.0) mmol/L Calcium (8.4-10.2) mg/dL Magnesium (1.6-2.3) mg/dL Total Bilirubin (0.2-1.3) mg/dL AST (17-59) U/L ALT (21-72) U/L Alkaline Phosphatase (38-126) U/L Total Creatine Kinase (55-170) U/L CK-MB (CK-2) (0.0-2.4) ng/mL CK-MB (CK-2) Rel Index Troponin I (0.000-0.034) ng/mL Total Protein (6.3-8.2) g/dL Albumin (3.5-5.0) g/dL Urine Color Light Yellow Urine Appearance Clear (Clear) Urine pH 6.5 (5.0-8.0) Ur Specific [place] 1.004 (1.001-1.035) Urine Protein Negative (Negative) Urine Glucose (UA) Negative (Negative) Urine Ketones Negative (Negative) Urine Blood Negative (Negative) Urine Nitrite Negative (Negative) Urine Bilirubin Negative (Negative) Urine Urobilinogen <2.0 (<2.0) mg/dL Ur Leukocyte Esterase Negative (Negative) Disposition Clinical Impression: Myalgia, Intractable pain, Upper extremity weakness Disposition: ADMITTED IP TO THIS [facility] Condition: Stable Is patient prescribed a controlled substance at d/c from ED?: No Referrals: Cooper Shane MD [Primary Care Provider] - 1-2 days Decision to Admit Reason: Admit from EC Decision Date: 12/29/17 Decision Time: 15:34
[2017-12-29 14:18] LABS: Basophils % (A) 0 %; Eosinophils # (A) 0.2 k/uL (0-0.7); Eosinophils % (A) 1 %; HCT 45.4 % (39.0-53.0); HGB 14.4 gm/dL (13.0-17.5); Lymphocytes # (A) 1.1 k/uL (1.0-4.8); Lymphocytes % (A) 10 %; MCH 31.4 pg (25.0-35.0); MCHC 31.8 g/dL (31.0-37.0); Mean Platelet Volume 7.7; Monocytes # (A) 0.8 k/uL (0-1.0); Monocytes % (A) 7 %; Neutrophils % (A) 79 %; Platelet Count 265 k/uL (150-450); RBC 4.58 m/uL (4.30-5.90); RDW 13.1 % (11.5-15.5); WBC 11.4 k/uL (3.8-10.6)
[2017-12-29 14:27] LABS: ALT 56 U/L (21-72); AST 51 U/L (17-59); Albumin 3.7 g/dL (3.5-5.0); Alkaline Phosphatase 83 U/L (38-126); Anion Gap 7 mmol/L; Blood Urea Nitrogen 13 mg/dL (9-20); Calcium 9.3 mg/dL (8.4-10.2); Carbon Dioxide 27 mmol/L (22-30); Chloride 101 mmol/L (98-107); Glucose 94 mg/dL (74-99); Magnesium 1.8 mg/dL (1.6-2.3); Potassium 4.7 mmol/L (3.5-5.1); Sodium 135 mmol/L (137-145); Total Bilirubin 0.8 mg/dL (0.2-1.3); Total Protein 6.3 g/dL (6.3-8.2)
--- NOTE | 2017-12-29 14:31 | CT ---
EXAMINATION TYPE: CT brain wo con DATE OF EXAM: 12/29/2017 COMPARISON: None INDICATION: c/o weakness and body aches DLP: 1141 mGycm, Automated exposure control for dose reduction was used. CONTRAST: None CT of the brain is performed utilizing 3 mm thick sections through the posterior fossa and 3 mm thick sections through the remaining calvarium. Study is performed within 24 hours of arrival to the hosp [facility]. No abnormal hyperdensity is present to suggest an acute intracranial hemorrhage. No mass lesion is evident. No acute infarcts are evident. Ventricles and sulci are appropriate for the patient age. Paranasal sinuses and mastoid air cells within the [id number] are clear. IMPRESSIONS: 1. No acute intracranial process.
[2017-12-29 14:38] LABS: Creatine Kinase 280 U/L (55-170)
[2017-12-29 14:50] LABS: Creatine Kinase MB 9.7 ng/mL (0.0-2.4); Troponin I <0.012 ng/mL (0.000-0.034)
[2017-12-29 14:51] LABS: Prothrombin Time 10.1 sec (9.0-12.0)
[2017-12-29] MEDS ORDERED: HYDROmorphone 0.5 MG/0.5 ML SYRINGE IVP STA (15:21)
[2017-12-29] MEDS ORDERED: NALOXONE 0.4 MG/ML 1 ML VIAL IV PRN (15:26)
[2017-12-29] MEDS ORDERED: ACETAMINOPHEN TAB 325 MG TAB PO PRN (15:26)
[2017-12-29 15:27] LABS: Appearance,Urine Clear (Clear); Bilirubin,Urine Negative (Negative); Blood,Urine Negative (Negative); Color,Urine Light Yellow; Glucose,Urine (UA) Negative (Negative); Ketones,Urine Negative (Negative); Leukocyte Esterase,Urine Negative (Negative); Nitrite,Urine Negative (Negative); PH, Urine 6.5 (5.0-8.0); Protein,Urine Negative (Negative); Specific Gravity,Urine 1.004 (1.001-1.035); Urobilinogen,Urine <2.0 mg/dL (<2.0)
[2017-12-29] MEDS: SODIUM CHLORIDE 0.9% 1,000 ML IV SCH (15:28)
[2017-12-29] MEDS: HYDROmorphone 1 MG/ML 1 ML SYRINGE IVP PRN ×2 (16:35→20:46)
[2017-12-29] MEDS ORDERED: HYDROcodone/APAP 5-325MG 1 EACH TAB PO PRN (19:51)
[2017-12-29] MEDS ORDERED: ALPRAZolam 0.5 MG TAB PO PRN (19:51)
[2017-12-29] MEDS ORDERED: MAGNESIUM HYDROXIDE 2,400 MG/10 ML CUP PO PRN (19:53)
[2017-12-29] MEDS ORDERED: CALCIUM CARBONATE 500 MG CHEWABLE PO PRN (19:53)
[2017-12-29] MEDS ORDERED: ONDANSETRON 4 MG/2 ML VIAL IVP PRN (19:53)
[2017-12-29] MEDS ORDERED: ALPRAZolam 0.25 MG TAB PO PRN (19:53)
[2017-12-29] MEDS ORDERED: LACTULOSE 20 GM/30 ML CUP PO PRN (19:53)
[2017-12-29] MEDS ORDERED: MELATONIN 3 MG TABLET PO PRN (19:53)
[2017-12-29] MEDS ORDERED: FENTANYL TOPICAL SCH (20:00)
[2017-12-29] MEDS: APIXABAN 5 MG TAB PO SCH (21:02)
[2017-12-29] MEDS: GABAPENTIN 100 MG CAP PO SCH (21:02)
[2017-12-29] MEDS: PROCHLORPERAZINE 10 MG TAB PO SCH (22:11)
[2017-12-29] MEDS: LORATADINE 10 MG TAB PO SCH (22:12)
[2017-12-29] MEDS: ATORVASTATIN 40 MG TAB PO SCH (22:12)
[2017-12-30] MEDS: HYDROmorphone 1 MG/ML 1 ML SYRINGE IVP PRN ×6 (03:20→20:46)
[2017-12-30] MEDS: SYMBICORT 160-4.5 MCG INHALER INHALATION SCH ×3 (03:42→19:35)
[2017-12-30] MEDS: SODIUM CHLORIDE 0.9% 1,000 ML IV SCH ×2 (05:54→17:39)
[2017-12-30] MEDS: PROCHLORPERAZINE 10 MG TAB PO SCH ×4 (06:02→23:21)
[2017-12-30] MEDS: LIDOCAINE 5% PATCH TOPICAL SCH (07:33)
[2017-12-30] MEDS: PANTOPRAZOLE 40 MG TABLET PO SCH (07:37)
[2017-12-30] MEDS: THIAMINE 100 MG TAB PO SCH (07:37)
[2017-12-30] MEDS: CITALOPRAM HYDROBROMIDE 20 MG TAB PO SCH (07:37)
[2017-12-30] MEDS: METOPROLOL TARTRATE 25 MG TAB PO SCH (07:39)
[2017-12-30] MEDS: CHOLECALCIFEROL 1,000 UNIT TAB PO SCH (07:39)
[2017-12-30] MEDS: amLODIPine 5 MG TAB PO SCH (07:39)
[2017-12-30] MEDS: LISINOPRIL 10 MG TAB PO SCH (07:40)
[2017-12-30] MEDS: TAMSULOSIN 0.4 MG CAP.ER.24H PO SCH (07:40)
[2017-12-30] MEDS: APIXABAN 5 MG TAB PO SCH ×2 (07:40→21:02)
[2017-12-30] MEDS: LACTOBACILLUS ACIDOPH & BULGAR 1 EACH PACKET PO SCH (07:40)
[2017-12-30] MEDS: LORATADINE 10 MG TAB PO SCH ×2 (07:41→21:02)
[2017-12-30] MEDS: IPRATROPIUM 0.5 MG/2.5 ML NEBU INHALATION SCH ×4 (08:39→19:33)
[2017-12-30] MEDS ORDERED: NON-FORMULARY DRUG (Cinnamon Bark [Cinnamon] 500 MG) PO SCH (09:00)
--- NOTE | 2017-12-30 13:38 | HP ---
HISTORY AND PHYSICAL DATE OF SERVICE: 12/30/2017 PRESENTING COMPLAINT: Weakness, unable to lift the right arm. HISTORY OF PRESENTING COMPLAINT: This is a very pleasant 72-year-old patient follows with Dr. Shane. The patient's chronic stable medical conditions include restless legs syndrome, essential hypertension, BPH, GERD, chronic insomnia, depression, coronary artery disease with stent to the RCA, irritable bowel syndrome, paroxysmal atrial fibrillation. The patient in February of 2016 had a right upper lobe lung lobectomy done for lung cancer. Subsequently about in a year, the patient did develop more pulmonary malignancy and was then seen by Dr. Roldan. The patient was referred to Dr. Aguayo and patient was put on chemotherapy, which he did not respond. Subsequently patient started on immunotherapy. The patient started receiving immunotherapy, started becoming weak all over, achiness in the muscles, finding it difficult to walk, stiffness. He presents with more pain in the right shoulder area and even finding it difficult to lift his right arm. He also hurts in other bony joints hence presents with the same. Denies any fever or chills. Appetite is maintained. The patient's is present. Patient is due for a PET scan tomorrow. REVIEW OF SYSTEMS: CONSTITUTIONAL: Tired. HEENT: None. RESPIRATORY: Occasional short of breath. CARDIOVASCULAR: None. GASTROINTESTINAL: None. GENITOURINARY: None. MUSCULOSKELETAL: As above DERMATOLOGICAL: None. HEMATOLOGICAL: None. LYMPHATICS: None. PSYCHIATRY: Slight anxiety. NEUROLOGICAL: None. PAST MEDICAL HISTORY: Paroxysmal atrial fibrillation, right superficial thrombophlebitis of the arm, chronic respiratory failure on home oxygen, irritable bowel syndrome, coronary artery disease with stent to the RCA, COPD in an ex-smoker, depression, chronic insomnia, GERD, BPH, essential hypertension, restless legs syndrome, chronically elevated right diaphragm, wedge resection of right upper lung mass with partial pneumonectomy with recurrence. PAST SURGICAL HISTORY: Adenoidectomy, appendectomy, cholecystectomy, cardiac cath with stent, tonsillectomy bilateral knee surgery, cardiac stent in 2007, robotic-assisted right thoracoscopy, right upper lobectomy, lymph node resection. PSYCH HISTORY: Anxiety, depression. SOCIAL HISTORY: The patient smoked for about 44 years, stopped in 2008. Smoked about 2 packs a day. Drinks 3 to 5 beers or wine a day. . FAMILY HISTORY: Family history of breast and lung cancer. HOME MEDICATIONS: 1. Fentanyl patch. 2. Compazine 10 mg q.6. 3. Probiotic 1 capsule p.o. daily. 4. Neurontin 200 mg at bedtime. 5. Dulera 2 puffs b.i.d. 6. Claritin 5 mg q.12. 7. Lapoint 5 one tablet q.4 p.r.n. 8. Xanax 0.5 p.o. daily p.r.n. 9. Requip 2 mg p.o. at bedtime. 10.Hydroxyzine 25 mg daily p.r.n. 11.Lotrel 5/10 one capsule p.o. daily. 12.Spiriva 1 capsule p.o. daily. 13.Vitamin B1, 250 mg p.o. daily. 14.Flomax 0.4 mg p.o. daily. 15.Protonix 40 mg p.o. daily. 16.Fish oil 1200 mg p.o. daily. 17.Lopressor 25 mg p.o. daily. 18.Lidocaine 5% 1 patch topical daily. 19.Celexa 20 mg p.o. daily. 20.Cinnamon 500 mg p.o. daily. 21.Vitamin D3, 5000 units p.o. daily. 22.Lipitor 40 mg p.o. at bedtime. 23.Eliquis 5 mg p.o. b.i.d. ALLERGIES: Allergy to CAT DANDER, IV CONTRAST DYE, IODINE, NORCO. PHYSICAL EXAMINATION: On examination, temperature 98.4, pulse 70, respirations 20, blood pressure 123/74, pulse ox 93% on 3 L. GENERAL APPEARANCE: Average build, lying in bed, tired appearing. EYES: Pupil equal. Conjunctivae normal. HENT: External appearance of nose and ears. Oral cavity normal. NECK: JVD not raised. Mass not palpable. RESPIRATORY: Effort normal. LUNGS: Diminished breath sounds. CARDIOVASCULAR: First and second sounds normal. No edema. ABDOMEN: Soft, nontender. Liver and spleen not palpable. LYMPHATIC: No lymph nodes palpable in neck or axillae. PSYCHIATRY: Alert and oriented x3. Mood and affect normal. NEUROLOGICAL: Pupils equal. Cranial nerves grossly intact. MUSCULOSKELETAL: Mild tenderness of the muscles. Also patient has got tenderness over the right shoulder, left shoulder. The patient has a minimal range of motion of the right shoulder. INVESTIGATIONS: White count 11.4, hemoglobin 14.4. Potassium 4.7. CPK 280. UA negative. EKG normal sinus rhythm. The patient did have a cervical spine MRI done on 12/29/2017. There is evidence of moderate spinal stenosis at C3, C4, C5; moderate DJD. ASSESSMENT: 1. Increasing pain and decreased movement in the right shoulder area with achiness of muscles. It is unclear at this point if this is a muscular component or neuromuscular or combination thereof in a patient who has had a right upper lobe surgery done. I cannot say if the brachial plexus is involved or if it is more of shoulder joint involvement with significant pain. 2. History of lung cancer with right upper lobe lobectomy with recurrence of cancer having failed chemotherapy, now getting immunotherapy. 3. Chronic obstructive pulmonary disease in an ex-smoker. 4. Chronically elevated right diaphragm. 5. Restless legs syndrome. 6. Essential hypertension. 7. Benign prostatic hypertrophy. 8. Gastroesophageal reflux disease. 9. Coronary artery disease, prior history of stent to the RCA in 2007. 10.Irritable bowel syndrome. 11.Chronic hypoxic respiratory failure on home oxygen 1 to 2 L. 12.Paroxysmal atrial fibrillation for which patient is chronically on Eliquis. PLAN: Care was discussed with the patient and in detail. At this point it is not clear what the patient's diagnosis is. Consultation is being made to Dr. Aguayo so we can see if this something to do with immunotherapy, Dr. Bunch from Cardiothoracic if this is some distant manifestation of right upper lobe lobectomy with the involve the right shoulder, by Dr. Roldan to whom the patient is known and also get orthopedics involved. MMODL / IJN: [id number] /
--- NOTE | 2017-12-30 13:46 | P.CNPUL ---
History of Present Illness Consult date: 12/30/17 Reason for consult: lung mass, abnormal CXR/CT, other Chief complaint: right upper extremity weakness and diffuse muscle and joint pain History of present illness: Pulmonary consultation dated 12/22/2017 72-year-old male with a history of lung cancer. He apparently was diagnosed back in 2015 by fine-needle aspiration. She was discovered to have squamous cell carcinoma involving the right upper lobe. He underwent right upper lobectomy late in [address] Jayy Paniagua. Subsequent to that, he received chemotherapy and then more recently, immunotherapy with Opdivo. The patient's primary doctor is Dr. Shane in [place]. He sees my partner, Dr. Roldan for his lung cancer, and he also sees Dr. Aguayo for medical oncology. The patient did not receive any radiation therapy. More recently, the patient had a PET scan which revealed a lytic lesion in the rib on the right side #6, in addition he had a right supraclavicular lymph node which lit up on PET scan. The patient presented to the emergency department on December 29 with diffuse muscle and joint aches and pain and difficulty using his right upper extremity. He apparently was in the emergency room twice in the last couple of days and was prescribed some pain medication without benefit. Also, he tells us that his statin medication for high cholesterol was stopped thinking that that was the cause of the muscle pain. Anyway, the patient was admitted with a diagnosis of uncontrolled pain and he was admitted primarily for pain control. The patient apparently is also scheduled for a PET scan tomorrow although it's unclear to me whether or not it would be done given the fact that the patient is inpatient. The patient is not having any respiratory complaints at this time clinic shortness of breath cough wheezing chest congestion or phlegm production. Review of Systems A 14 point review of system is positive for diffuse muscle and joint aches as well as pain and difficulty moving his right upper extremity. Past Medical History Past Medical History: Coronary Artery Disease (CAD), COPD, GERD/Reflux, Hyperlipidemia, Hypertension, Prostate Disorder, Thyroid Disorder Additional Past Medical History / Comment(s): rt LOBECTOMY FOR LUNG CANCER,pt stated he had 9 weeks of chemo "that did'nt work" then was placed on immunotherapy"has been on immunotherapy 11 weeks" , restless legs syndrome History of Any Multi-Drug Resistant Organisms: None Reported Past Surgical History: Adenoidectomy, Appendectomy, Cholecystectomy, Heart Catheterization With Stent, Tonsillectomy Additional Past Surgical History / Comment(s): bilateral knee surgery(on cartilage), CARDIAC STENT- -2007, lung bx,02-27-16 ROBOTIC ASSISTED RT THOROSCOPY/RT UPPER LOBECTOMY /LYMPH NODE DISECTION. Past Anesthesia/Blood Transfusion Reactions: No Reported Reaction Date of Last Stent Placement:: 2007 Smoking Status: Former smoker - Past Family History Mother Family Medical History: Cancer Additional Family Medical History / Comment(s): breast and lung cancer Father Family Medical History: Diabetes Mellitus, Myocardial Infarction (VT) Additional Family Medical History / Comment(s): mi x2 with 2nd one Medications and Allergies Home Medications Medication Instructions Recorded Confirmed Type Pantoprazole Sodium [Protonix] 40 mg PO DAILY 12/15/15 12/29/17 History amLODIPine BESYLATE/BENAZEPRIL 1 cap PO QAM 12/15/15 12/29/17 History [Lotrel 5-10 mg Capsule] Cholecalciferol [Vitamin D3] 5,000 unit PO DAILY 02/20/16 12/29/17 History Cinnamon Bark [Cinnamon] 500 mg PO DAILY 02/20/16 12/29/17 History Atorvastatin [Lipitor] 40 mg PO HS 02/27/16 12/29/17 History Apixaban [Eliquis] 5 mg PO BID #60 tab 03/06/16 12/29/17 Rx Citalopram Hydrobromide [CeleXA] 20 mg PO QAM tab 03/06/16 12/29/17 Rx Tamsulosin [Flomax] 0.4 mg PO QAM cap.er.24h 03/06/16 12/29/17 Rx Metoprolol Tartrate [Lopressor] 25 mg PO DAILY 04/25/16 12/29/17 History Loratadine [Claritin] 5 mg PO Q12HR tab 04/27/16 12/29/17 Rx Mometasone/Formoterol [Dulera 200 2 puff INHALATION RT-BID 06/16/17 12/29/17 History Mcg/5 Mcg Inhaler] [place]-3 Fatty Acids/Fish Oil [Fish 1,200 mg PO DAILY 06/16/17 12/29/17 History Oil 1,000 mg Softgel] Tiotropium 18 Mcg/Puff [Spiriva] 1 cap INHALATION DAILY 06/16/17 12/29/17 History hydrOXYzine HCL 25 mg PO DAILY PRN 06/16/17 12/29/17 History rOPINIRole HCL [Requip] 2 mg PO HS 06/16/17 12/29/17 History Thiamine [Vitamin B-1] 250 mg PO DAILY 07/07/17 12/29/17 History Lidocaine 5% Patch [Lidoderm] 1 patch TOPICAL DAILY #30 patch 12/28/17 12/29/17 Rx ALPRAZolam [Xanax] 0.5 mg PO DAILY PRN 12/29/17 12/29/17 History Fentanyl Patch (Unknown Dose) 1 patch TOPICAL ONCE 12/29/17 12/29/17 History Gabapentin [Neurontin] 200 mg PO HS 12/29/17 12/29/17 History HYDROcodone/APAP 5-325MG [[place] 1 tab PO Q4HR PRN 12/29/17 12/29/17 History 5-325] L.acidoph,Paracasei, B.lactis 1 cap PO DAILY 12/29/17 12/29/17 History [Probiotic] Prochlorperazine [Compazine] 10 mg PO Q6H 12/29/17 12/29/17 History Allergies Allergy/AdvReac Type Severity Reaction Status Date / Time cat dander Allergy Rash/Hives Verified 12/29/17 13:13 Iodinated Contrast- Oral and Allergy Verified 12/29/17 13:13 IV Dye iodine Allergy Nausea Verified 12/29/17 13:13 hydrocodone [From [place]] AdvReac Unknown Verified 12/29/17 13:13 Physical Exam Osteopathic Statement: *. No significant issues noted on an osteopathic structural exam other than those noted in the History and Physical/Consult. Vitals: Vital Signs Temp Pulse Pulse Resp BP BP Pulse Ox 12/30/17 12:11 99.2 F 70 18 117/68 93 L 12/30/17 08:51 80 12/30/17 08:35 88 12/30/17 05:50 98.6 F 79 16 110/77 92 L 12/29/17 22:26 98.1 F 87 16 104/58 92 L 12/29/17 17:44 97.9 F 77 14 133/59 92 L 12/29/17 17:10 74 15 136/80 95 12/29/17 16:30 65 18 135/78 98 12/29/17 14:41 66 20 127/67 100 Intake and Output 12/29/17 12/30/17 12/30/17 22:59 06:59 14:59 Intake Total 300 600 Output Total 500 1800 Balance -200 -1200 Intake: Intake, IV Titration 300 600 Amount Sodium Chloride 0.9% 1, 300 600 000 ml @ 75 mls/hr IV . [id number] [facility] Rx#:[id number] Output: Urine 500 1800 Other: Voiding Method Urinal Urinal # Voids 1 1 No acute distress, oriented 3. The patient does not require any supplemental oxygen. HEENT examination is grossly unremarkable. Mucous membranes are moist. No oral lesions. Neck supple. Full range of motion. No adenopathy thyromegaly or neck vein distention. Cardiovascular examination reveals regular rhythm rate. S1-S2 normal. No S3 or S4. No discernible murmur noted. Lungs reveal clear breath sounds. Breath sounds are equal bilaterally. No adventitious lung sounds including wheezes rhonchi or crackles. Abdomen soft bowel sounds are heard. No masses or tenderness. Extremities are intact. No cyanosis clubbing or edema. Skin is without rash or lesion. Neurologic examination is brief but nonfocal. Results - Laboratory Findings CBC and BMP: 12/29/17 13:52 12/29/17 13:52 PT/INR, D-dimer PT 10.1 sec (9.0-12.0) 12/29/17 14:22 INR 1.0 (<1.2) 12/29/17 14:22 Abnormal lab findings: Abnormal Labs 12/29/17 12/29/17 12/29/17 13:52 13:52 13:52 WBC 11.4 H Neutrophils # 9.0 H Sodium 135 L Total Creatine Kinase 280 H CK-MB (CK-2) 9.7 H - Diagnostic Findings Chest x-ray: report reviewed, image reviewed (Chest x-ray, labs, and medications are all reviewed. In addition, recent scans and PET scans are reviewed.) Assessment and Plan Assessment: Assessment Recurrent/metastatic non-small cell lung cancer, squamous cell type, currently on immunotherapy with Opdivo. Status post right upper lobectomy for non-small cell lung cancer, and subsequent chemotherapy. Metastatic lung cancer with lesions in the right sixth rib and right supraclavicular region. History of coronary artery disease History of COPD History of hyperlipidemia History of hypertension History of restless leg syndrome CAD with previous cardiac stent Previous history of tobacco use. Plan: Plan dated 12/30/2017 Not much for us to do this time. The patient is apparently scheduled for a PET scan tomorrow. It'll be interesting to see whether or not they deferred given the patient is inpatient currently. The patient will be seen by oncology. It appears that his primary problem is pain in her knee pain control. From the pulmonary standpoint, the patient's doing well. We will continue to follow. We did spend time with the patient today talked him about his condition as well as with his . He sees my partner in the office. Time with Patient: Greater than 30
--- NOTE | 2017-12-30 14:18 | P.GSCN ---
History of Present Illness Consult date: 12/30/17 Reason for Consult: Right arm weakness, previous right upper lobectomy Requesting physician: Sanjeev Marcial History of present illness: This is a 72-year-old male patient who follows with Dr. Cooper Shane for primary care and Dr. Aguayo for oncology on an outpatient basis. He has a previous medical history of squamous cell carcinoma status post robotic right upper lobectomy with lymph node dissection in February 2016, paroxysmal atrial fibrillation on Eliquis for anticoagulation, COPD on home oxygen, coronary artery disease with stenting to the RCA, previous tobacco dependence, daily EtOH use, depression, GERD, hypertension, and BPH. This gentleman was diagnosed with lung cancer in 2015, had a right upper lobectomy, and had recurrence approximately a year later with further pulmonary malignancy treated with chemotherapy by Dr. Aguayo. He did not respond to the chemotherapy and subsequently was started on immunotherapy with Opdivo which he states he has been receiving for about 10 weeks. Since initiation of immunotherapy he has felt weak all over with muscle pain and stiffness. He presented to [facility] yesterday with complaints that his right arm and shoulder are hurting so bad that he is unable to lift his arm more than a couple of inches away from his body. He does state that he had previously seen the oncology nurse practitioner earlier in the week and was prescribed [place] which really has not helped. He was to have a PET scan tomorrow to determine if the immunotherapy is working. Dr. Bunch from cardiothoracic surgery was consulted regarding surgical recommendations. Review of Systems Review of systems was completed and was negative except as noted. - Constitutional Reports fatigue, Reports weakness, Reports weight loss - Respiratory Reports home oxygen - Musculoskeletal right: as per HPI, shoulder pain, shoulder stiffness Past Medical History Past Medical History: Coronary Artery Disease (CAD), COPD, GERD/Reflux, Hyperlipidemia, Hypertension, Prostate Disorder, Thyroid Disorder Additional Past Medical History / Comment(s): rt LOBECTOMY FOR LUNG CANCER,pt stated he had 9 weeks of chemo "that did'nt work" then was placed on immunotherapy"has been on immunotherapy 11 weeks" , restless legs syndrome History of Any Multi-Drug Resistant Organisms: None Reported Past Surgical History: Adenoidectomy, Appendectomy, Cholecystectomy, Heart Catheterization With Stent, Tonsillectomy Additional Past Surgical History / Comment(s): bilateral knee surgery(on cartilage), CARDIAC STENT- RCA-2007, lung bx,02-27-16 ROBOTIC ASSISTED RT THOROSCOPY/RT UPPER LOBECTOMY /LYMPH NODE DISECTION. Past Anesthesia/Blood Transfusion Reactions: No Reported Reaction Date of Last Stent Placement:: 2007 Smoking Status: Former smoker - Past Family History Mother Family Medical History: Cancer Additional Family Medical History / Comment(s): breast and lung cancer Father Family Medical History: Diabetes Mellitus, Myocardial Infarction ([place]) Additional Family Medical History / Comment(s): mi x2 with 2nd one Medications and Allergies Home Medications Medication Instructions Recorded Confirmed Type Pantoprazole Sodium [Protonix] 40 mg PO DAILY 12/15/15 12/29/17 History amLODIPine BESYLATE/BENAZEPRIL 1 cap PO QAM 12/15/15 12/29/17 History [Lotrel 5-10 mg Capsule] Cholecalciferol [Vitamin D3] 5,000 unit PO DAILY 02/20/16 12/29/17 History Cinnamon Bark [Cinnamon] 500 mg PO DAILY 02/20/16 12/29/17 History Atorvastatin [Lipitor] 40 mg PO HS 02/27/16 12/29/17 History Apixaban [Eliquis] 5 mg PO BID #60 tab 03/06/16 12/29/17 Rx Citalopram Hydrobromide [CeleXA] 20 mg PO QAM tab 03/06/16 12/29/17 Rx Tamsulosin [Flomax] 0.4 mg PO QAM cap.er.24h 03/06/16 12/29/17 Rx Metoprolol Tartrate [Lopressor] 25 mg PO DAILY 04/25/16 12/29/17 History Loratadine [Claritin] 5 mg PO Q12HR tab 04/27/16 12/29/17 Rx Mometasone/Formoterol [Dulera 200 2 puff INHALATION RT-BID 06/16/17 12/29/17 History Mcg/5 Mcg Inhaler] [place]-3 Fatty Acids/Fish Oil [Fish 1,200 mg PO DAILY 06/16/17 12/29/17 History Oil 1,000 mg Softgel] Tiotropium 18 Mcg/Puff [Spiriva] 1 cap INHALATION DAILY 06/16/17 12/29/17 History hydrOXYzine HCL 25 mg PO DAILY PRN 06/16/17 12/29/17 History rOPINIRole HCL [Requip] 2 mg PO HS 06/16/17 12/29/17 History Thiamine [Vitamin B-1] 250 mg PO DAILY 07/07/17 12/29/17 History Lidocaine 5% Patch [Lidoderm] 1 patch TOPICAL DAILY #30 patch 12/28/17 12/29/17 Rx ALPRAZolam [Xanax] 0.5 mg PO DAILY PRN 12/29/17 12/29/17 History Fentanyl Patch (Unknown Dose) 1 patch TOPICAL ONCE 12/29/17 12/29/17 History Gabapentin [Neurontin] 200 mg PO HS 12/29/17 12/29/17 History HYDROcodone/APAP 5-325MG [[place] 1 tab PO Q4HR PRN 12/29/17 12/29/17 History 5-325] L.acidoph,Paracasei, B.lactis 1 cap PO DAILY 12/29/17 12/29/17 History [Probiotic] Prochlorperazine [Compazine] 10 mg PO Q6H 12/29/17 12/29/17 History Allergies Allergy/AdvReac Type Severity Reaction Status Date / Time cat dander Allergy Rash/Hives Verified 12/29/17 13:13 Iodinated Contrast- Oral and Allergy Verified 12/29/17 13:13 IV Dye iodine Allergy Nausea Verified 12/29/17 13:13 hydrocodone [From [place]] AdvReac Unknown Verified 12/29/17 13:13 Surgical - Exam Vital Signs Temp Pulse Resp BP Pulse Ox 98.4 F 70 20 123/74 93 L 12/29/17 12:53 12/29/17 12:53 12/29/17 12:53 12/29/17 12:53 12/29/17 12:53 - General well developed, well nourished, no distress, moderate pain, chronically ill - Eyes PERRL, normal ocular movement - ENT no hearing loss - Neck no masses, no bruits, trachea midline - Respiratory Lungs sounds diminished bilaterally. Respirations even, nonlabored. Currently on 2 L nasal cannula with oxygen saturation 93%. - Cardiovascular S1, S2 present. Regular rate and rhythm. Palpable peripheral pulses bilaterally. No edema present. No calf pain or tenderness noted. - Abdomen Abdomen: soft, non tender, bowel sounds - Genitourinary Deferred - Rectum Deferred - Integumentary no rash, no growths - Neurologic normal coordination, normal sensation - Musculoskeletal Limited movement with right arm. Only able to abduct his right arm approximately 2-3 inches. - Psychiatric oriented to time, oriented to person, oriented to place, speech is normal, memory intact Results - Labs 12/29/17 13:52 12/29/17 13:52 Abnormal Lab Results - Last 24 Hours (Table) 12/29/17 12/29/17 12/29/17 Range/Units 13:52 13:52 13:52 WBC 11.4 H (3.8-10.6) k/uL Neutrophils # 9.0 H (1.3-7.7) k/uL Sodium 135 L (137-145) mmol/L Total Creatine Kinase 280 H (55-170) U/L CK-MB (CK-2) 9.7 H (0.0-2.4) ng/mL Diabetes panel 12/29/17 Range/Units 13:52 Sodium 135 L (137-145) mmol/L Potassium 4.7 (3.5-5.1) mmol/L Chloride 101 (98-107) mmol/L Carbon Dioxide 27 (22-30) mmol/L BUN 13 (9-20) mg/dL Creatinine 0.76 (0.66-1.25) mg/dL Glucose 94 (74-99) mg/dL Calcium 9.3 (8.4-10.2) mg/dL AST 51 (17-59) U/L ALT 56 (21-72) U/L Alkaline Phosphatase 83 (38-126) U/L Total Protein 6.3 (6.3-8.2) g/dL Albumin 3.7 (3.5-5.0) g/dL Calcium panel 12/29/17 Range/Units 13:52 Calcium 9.3 (8.4-10.2) mg/dL Albumin 3.7 (3.5-5.0) g/dL Pituitary panel 12/29/17 Range/Units 13:52 Sodium 135 L (137-145) mmol/L Potassium 4.7 (3.5-5.1) mmol/L Chloride 101 (98-107) mmol/L Carbon Dioxide 27 (22-30) mmol/L BUN 13 (9-20) mg/dL Creatinine 0.76 (0.66-1.25) mg/dL Glucose 94 (74-99) mg/dL Calcium 9.3 (8.4-10.2) mg/dL Adrenal panel 12/29/17 Range/Units 13:52 Sodium 135 L (137-145) mmol/L Potassium 4.7 (3.5-5.1) mmol/L Chloride 101 (98-107) mmol/L Carbon Dioxide 27 (22-30) mmol/L BUN 13 (9-20) mg/dL Creatinine 0.76 (0.66-1.25) mg/dL Glucose 94 (74-99) mg/dL Calcium 9.3 (8.4-10.2) mg/dL Total Bilirubin 0.8 (0.2-1.3) mg/dL AST 51 (17-59) U/L ALT 56 (21-72) U/L Alkaline Phosphatase 83 (38-126) U/L Total Protein 6.3 (6.3-8.2) g/dL Albumin 3.7 (3.5-5.0) g/dL - Imaging EKG: image reviewed Assessment and Plan (1) Intractable pain Current Visit: Yes Status: Acute Code(s): R52 - PAIN, UNSPECIFIED SNOMED Code(s): 96248766 (2) Myalgia Current Visit: Yes Status: Acute Code(s): M79.1 - MYALGIA SNOMED Code(s): 62872469 (3) Upper extremity weakness Current Visit: Yes Status: Acute Code(s): R29.898 - OTH SYMPTOMS AND SIGNS INVOLVING THE MUSCULOSKELETAL SYSTEM SNOMED Code(s): 749106659 (4) Cancer associated pain Current Visit: No Status: Acute Code(s): G89.3 - NEOPLASM RELATED PAIN ( ACUTE) (CHRONIC) SNOMED Code(s): 442041147 Plan: Patient was seen and examined at the bedside. Chart/diagnostics were reviewed. The case was discussed in detail with Dr. Bunch who reviewed the patient's multiple scans at length. At this time there are no surgical recommendations from a thoracic standpoint. Continue medical management including pain management per primary care service. Cancer management per oncology. Thank you Dr. Marcial for this consult. Please call us with any further questions. Time with Patient: Greater than 30
[2017-12-30] MEDS: GABAPENTIN 100 MG CAP PO SCH (21:02)
[2017-12-30] MEDS: ATORVASTATIN 40 MG TAB PO SCH (21:57)
[2017-12-30] MEDS: methylPREDNISolone SOD SUCCI 125 MG/2 ML VIAL IV SCH (23:22)
[2017-12-31] MEDS: PROCHLORPERAZINE 10 MG TAB PO SCH ×2 (06:20→12:36)
[2017-12-31] MEDS: IPRATROPIUM 0.5 MG/2.5 ML NEBU INHALATION SCH ×3 (07:22→15:24)
[2017-12-31] MEDS: SYMBICORT 160-4.5 MCG INHALER INHALATION SCH (07:22)
[2017-12-31] MEDS: LACTOBACILLUS ACIDOPH & BULGAR 1 EACH PACKET PO SCH (08:14)
[2017-12-31] MEDS: CHOLECALCIFEROL 1,000 UNIT TAB PO SCH (08:14)
[2017-12-31] MEDS: THIAMINE 100 MG TAB PO SCH (08:15)
[2017-12-31] MEDS: LORATADINE 10 MG TAB PO SCH (08:16)
[2017-12-31] MEDS: TAMSULOSIN 0.4 MG CAP.ER.24H PO SCH (08:16)
[2017-12-31] MEDS: methylPREDNISolone SOD SUCCI 125 MG/2 ML VIAL IV SCH ×2 (08:17→15:47)
[2017-12-31] MEDS: CITALOPRAM HYDROBROMIDE 20 MG TAB PO SCH (08:17)
[2017-12-31] MEDS: amLODIPine 5 MG TAB PO SCH (08:17)
[2017-12-31] MEDS: METOPROLOL TARTRATE 25 MG TAB PO SCH (08:17)
[2017-12-31] MEDS: APIXABAN 5 MG TAB PO SCH (08:17)
[2017-12-31] MEDS: LISINOPRIL 10 MG TAB PO SCH (08:17)
[2017-12-31] MEDS: PANTOPRAZOLE 40 MG TABLET PO SCH (08:17)
[2017-12-31] MEDS: SODIUM CHLORIDE 0.9% 1,000 ML IV SCH (08:18)
[2017-12-31] MEDS: LIDOCAINE 5% PATCH TOPICAL SCH (08:23)
--- NOTE | 2017-12-31 10:10 | P.GSCN ---
History of Present Illness Consult date: 12/31/17 Reason for Consult: Myopathy History of present illness: Patient is being treated for lung cancer. Recently has had complaints of increasing weakness. He was having difficulty particularly with the right shoulder. He was started on steroids yesterday evening and has had significant improvement in his shoulder weakness. We were consulted for possible muscle biopsy area Review of Systems The patient denies any acute changes in vision or hearing, no dysphagia or odynophagia, no chest pain or shortness of breath, no dysuria or hematuria, no headache, no runny nose, no rectal bleeding or melena, no unexplained weight loss Past Medical History Past Medical History: Coronary Artery Disease (CAD), COPD, GERD/Reflux, Hyperlipidemia, Hypertension, Prostate Disorder, Thyroid Disorder Additional Past Medical History / Comment(s): rt LOBECTOMY FOR LUNG CANCER,pt stated he had 9 weeks of chemo "that did'nt work" then was placed on immunotherapy"has been on immunotherapy 11 weeks" , restless legs syndrome History of Any Multi-Drug Resistant Organisms: None Reported Past Surgical History: Adenoidectomy, Appendectomy, Cholecystectomy, Heart Catheterization With Stent, Tonsillectomy Additional Past Surgical History / Comment(s): bilateral knee surgery(on cartilage), CARDIAC STENT- -2007, lung bx,02-27-16 ROBOTIC ASSISTED RT THOROSCOPY/RT UPPER LOBECTOMY /LYMPH NODE DISECTION. Past Anesthesia/Blood Transfusion Reactions: No Reported Reaction Date of Last Stent Placement:: 2007 Smoking Status: Former smoker - Past Family History Mother Family Medical History: Cancer Additional Family Medical History / Comment(s): breast and lung cancer Father Family Medical History: Diabetes Mellitus, Myocardial Infarction ([place]) Additional Family Medical History / Comment(s): mi x2 with 2nd one Medications and Allergies Home Medications Medication Instructions Recorded Confirmed Type Pantoprazole Sodium [Protonix] 40 mg PO DAILY 12/15/15 12/29/17 History amLODIPine BESYLATE/BENAZEPRIL 1 cap PO QAM 12/15/15 12/29/17 History [Lotrel 5-10 mg Capsule] Cholecalciferol [Vitamin D3] 5,000 unit PO DAILY 02/20/16 12/29/17 History Cinnamon Bark [Cinnamon] 500 mg PO DAILY 02/20/16 12/29/17 History Atorvastatin [Lipitor] 40 mg PO HS 02/27/16 12/29/17 History Apixaban [Eliquis] 5 mg PO BID #60 tab 03/06/16 12/29/17 Rx Citalopram Hydrobromide [CeleXA] 20 mg PO QAM tab 03/06/16 12/29/17 Rx Tamsulosin [Flomax] 0.4 mg PO QAM cap.er.24h 03/06/16 12/29/17 Rx Metoprolol Tartrate [Lopressor] 25 mg PO DAILY 04/25/16 12/29/17 History Loratadine [Claritin] 5 mg PO Q12HR tab 04/27/16 12/29/17 Rx Mometasone/Formoterol [Dulera 200 2 puff INHALATION RT-BID 06/16/17 12/29/17 History Mcg/5 Mcg Inhaler] [place]-3 Fatty Acids/Fish Oil [Fish 1,200 mg PO DAILY 06/16/17 12/29/17 History Oil 1,000 mg Softgel] Tiotropium 18 Mcg/Puff [Spiriva] 1 cap INHALATION DAILY 06/16/17 12/29/17 History hydrOXYzine HCL 25 mg PO DAILY PRN 06/16/17 12/29/17 History rOPINIRole HCL [Requip] 2 mg PO HS 06/16/17 12/29/17 History Thiamine [Vitamin B-1] 250 mg PO DAILY 07/07/17 12/29/17 History Lidocaine 5% Patch [Lidoderm] 1 patch TOPICAL DAILY #30 patch 12/28/17 12/29/17 Rx ALPRAZolam [Xanax] 0.5 mg PO DAILY PRN 12/29/17 12/29/17 History Fentanyl Patch (Unknown Dose) 1 patch TOPICAL ONCE 12/29/17 12/29/17 History Gabapentin [Neurontin] 200 mg PO HS 12/29/17 12/29/17 History HYDROcodone/APAP 5-325MG [[place] 1 tab PO Q4HR PRN 12/29/17 12/29/17 History 5-325] L.acidoph,Paracasei, B.lactis 1 cap PO DAILY 12/29/17 12/29/17 History [Probiotic] Prochlorperazine [Compazine] 10 mg PO Q6H 12/29/17 12/29/17 History Allergies Allergy/AdvReac Type Severity Reaction Status Date / Time cat dander Allergy Rash/Hives Verified 12/29/17 13:13 Iodinated Contrast- Oral and Allergy Verified 12/29/17 13:13 IV Dye iodine Allergy Nausea Verified 12/29/17 13:13 hydrocodone [From [place]] AdvReac Unknown Verified 12/29/17 13:13 Surgical - Exam Vital Signs Temp Pulse Resp BP Pulse Ox 98.4 F 70 20 123/74 93 L 12/29/17 12:53 12/29/17 12:53 12/29/17 12:53 12/29/17 12:53 12/29/17 12:53 Physical exam: General: Well-developed, well-nourished HEENT: Normocephalic, sclerae nonicteric Abdomen: Nontender, nondistended Extremities: No edema, noticeable weakness all 4 extremities Neuro: Alert and oriented Results - Labs 12/29/17 13:52 12/29/17 13:52 Microbiology - Last 24 Hours (Table) 12/29/17 13:52 Blood Culture - Preliminary Blood No Growth after 24 hours Assessment and Plan (1) Upper extremity weakness Narrative/Plan: Continue steroids at this time. Remain on surgical standby for possible muscle biopsy if necessary. Current Visit: Yes Status: Acute Code(s): R29.898 - OTH SYMPTOMS AND SIGNS INVOLVING THE MUSCULOSKELETAL SYSTEM SNOMED Code(s): 707560331
--- NOTE | 2017-12-31 11:13 | P.CNOR ---
History of Present Illness - [facility] Consult date: 12/31/17 Consult reason: other History of present illness: Patient is a pleasant 72-year-old gentleman who had recent complaints of increasing weakness globally particular toward his upper extremities. Patient has history of lung cancer and is being treated for this. He was seen and examined at bedside and says that over the past 12 weeks or so he's been having some increasing difficulty with his mobilization ambulation and generalized soreness in his upper extremity and lower extremities. He says that over the past 4 days he has been having significant worsening and was essentially unable to ambulate and was brought in in a wheelchair by his . He says normally he is a community ambulator without any assistance. He has been managed conservatively with his primary care physician changing a number of medications to see if that was making a difference for him. He says that yesterday he was unable to lift his right arm. He was having great difficulty with any sort of ambulation. He has been started on some IV steroids. Hospital and he feels that he is making significant difference in improvement with this. Today he has been able to ambulate in his room independently and is moving his upper extremities quite a bit better. He had been treated with a lobectomy for his lung CA and had 9 weeks of chemotherapy and immunotherapy. Review of Systems As stated per HPI. He notes some difficulty with fine motor skills that his hands and fingers and some difficulty with his balance as well. This has also improved just overnight since starting steroid. He denies any acute chest pain. Denies any recent trauma. Past Medical History Past Medical History: Coronary Artery Disease (CAD), COPD, GERD/Reflux, Hyperlipidemia, Hypertension, Prostate Disorder, Thyroid Disorder Additional Past Medical History / Comment(s): rt LOBECTOMY FOR LUNG CANCER,pt stated he had 9 weeks of chemo "that did'nt work" then was placed on immunotherapy"has been on immunotherapy 11 weeks" , restless legs syndrome History of Any Multi-Drug Resistant Organisms: None Reported Past Surgical History: Adenoidectomy, Appendectomy, Cholecystectomy, Heart Catheterization With Stent, Tonsillectomy Additional Past Surgical History / Comment(s): bilateral knee surgery(on cartilage), CARDIAC STENT- RCA-2007, lung bx,02-27-16 ROBOTIC ASSISTED RT THOROSCOPY/RT UPPER LOBECTOMY /LYMPH NODE DISECTION. Past Anesthesia/Blood Transfusion Reactions: No Reported Reaction Date of Last Stent Placement:: 2007 Smoking Status: Former smoker - Past Family History Mother Family Medical History: Cancer Additional Family Medical History / Comment(s): breast and lung cancer Father Family Medical History: Diabetes Mellitus, Myocardial Infarction ([place]) Additional Family Medical History / Comment(s): mi x2 with 2nd one Medications and Allergies Home Medications Medication Instructions Recorded Confirmed Type Pantoprazole Sodium [Protonix] 40 mg PO DAILY 12/15/15 12/29/17 History amLODIPine BESYLATE/BENAZEPRIL 1 cap PO QAM 12/15/15 12/29/17 History [Lotrel 5-10 mg Capsule] Cholecalciferol [Vitamin D3] 5,000 unit PO DAILY 02/20/16 12/29/17 History Cinnamon Bark [Cinnamon] 500 mg PO DAILY 02/20/16 12/29/17 History Atorvastatin [Lipitor] 40 mg PO HS 02/27/16 12/29/17 History Apixaban [Eliquis] 5 mg PO BID #60 tab 03/06/16 12/29/17 Rx Citalopram Hydrobromide [CeleXA] 20 mg PO QAM tab 03/06/16 12/29/17 Rx Tamsulosin [Flomax] 0.4 mg PO QAM cap.er.24h 03/06/16 12/29/17 Rx Metoprolol Tartrate [Lopressor] 25 mg PO DAILY 04/25/16 12/29/17 History Loratadine [Claritin] 5 mg PO Q12HR tab 04/27/16 12/29/17 Rx Mometasone/Formoterol [Dulera 200 2 puff INHALATION RT-BID 06/16/17 12/29/17 History Mcg/5 Mcg Inhaler] [place]-3 Fatty Acids/Fish Oil [Fish 1,200 mg PO DAILY 06/16/17 12/29/17 History Oil 1,000 mg Softgel] Tiotropium 18 Mcg/Puff [Spiriva] 1 cap INHALATION DAILY 06/16/17 12/29/17 History hydrOXYzine HCL 25 mg PO DAILY PRN 06/16/17 12/29/17 History rOPINIRole HCL [Requip] 2 mg PO HS 06/16/17 12/29/17 History Thiamine [Vitamin B-1] 250 mg PO DAILY 07/07/17 12/29/17 History Lidocaine 5% Patch [Lidoderm] 1 patch TOPICAL DAILY #30 patch 12/28/17 12/29/17 Rx ALPRAZolam [Xanax] 0.5 mg PO DAILY PRN 12/29/17 12/29/17 History Fentanyl Patch (Unknown Dose) 1 patch TOPICAL ONCE 12/29/17 12/29/17 History Gabapentin [Neurontin] 200 mg PO HS 12/29/17 12/29/17 History HYDROcodone/APAP 5-325MG [[place] 1 tab PO Q4HR PRN 12/29/17 12/29/17 History 5-325] L.acidoph,Paracasei, B.lactis 1 cap PO DAILY 12/29/17 12/29/17 History [Probiotic] Prochlorperazine [Compazine] 10 mg PO Q6H 12/29/17 12/29/17 History Allergies Allergy/AdvReac Type Severity Reaction Status Date / Time cat dander Allergy Rash/Hives Verified 12/29/17 13:13 Iodinated Contrast- Oral and Allergy Verified 12/29/17 13:13 IV Dye iodine Allergy Nausea Verified 12/29/17 13:13 hydrocodone [From [place]] AdvReac Unknown Verified 12/29/17 13:13 Physical Examination Osteopathic Statement: *. No significant issues noted on an osteopathic structural exam other than those noted in the History and Physical/Consult. - C Spine: dermatomal strength & reflexes bilateral Shoulder strength: flexion: 4/5 (At the patient's neck he has some limitations to his range of motion particularly in rotation left and right. His limitations in extension as well. He has a positive Spurling sign. He has positive Jaye's bilaterally. He has some increased hyperreflexia globally with 3 out of 5 globally. He has 1 beat of clonus his bilateral lower extremities. At his upper extremities he is able to raise his arms up to shoulder level but has some weakness with breakaway strength of the right upper extremity around his shoulder due to some shoulder pain and some 4 or 5 right shoulder strength. He has 55 research director strength and 5 is 5 out of 5 biceps and triceps equal bilaterally.) Results - Labs Labs: Microbiology - Last 24 Hours (Table) 12/29/17 13:52 Blood Culture - Preliminary Blood No Growth after 24 hours H & H 12/29/17 Range/Units 13:52 Hgb 14.4 (13.0-17.5) gm/dL Hct 45.4 (39.0-53.0) % Coagulation 12/29/17 Range/Units 14:22 INR 1.0 (<1.2) Result Diagrams: 12/29/17 13:52 12/29/17 13:52 - Diagnostic results Cervical MRI with/without contrast: report reviewed, image reviewed (A cervical MRI done in past couple weeks shows significant degenerative disc disease at C3 4 C4 5 C5 6 and C6 7. His motors to severe central and bilateral foraminal stenosis at C4 5 C5 6 and C6 7 with cervical cord distortion. I do not see any obvious signal change within the cord itself. 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 He'll continue management with this. He has some right shoulder arthralgia as well which is multifactorial. Certainly portions of this can be coming from his cervical spine and rotator cuff issues, but he will continue his medical management as well In regards to the patient generalized weakness and symptoms I think that a good portion of his overall symptoms stem from his cervical myelopathy and cervical stenosis. He has been making improvement with his steroid treatment and I think we should continue with conservative treatment at this point hopefully he will be able to continue the IV steroid for at least another 24 hours and then can convert to an oral steroid tapering dose. He may be a candidate for interventional pain management with epidural steroid injections as well. He is a candidate for surgical intervention for cervical spine with anterior cervical decompression discectomy and fusion at C4 5 C5 6 C6 7 and possibly at C3 4 if his symptoms recur or worsen. I do not think that we should pursue emergent surgical intervention at this point. It is okay for him to mobilize with physical therapy and try to increase his activity for light activities. He is having some right shoulder issues which has significant contribution from his cervical spine as well and this should make some improvement with treatment at his cervical spine. We will continue to follow him closely along with you.
[2017-12-31 12:49] VITALS: BP 135/82; RESP 18; TEMP 97.6
--- NOTE | 2017-12-31 13:42 | P.PN ---
Subjective Progress Note Date: 12/31/17 Principal diagnosis: Diffuse muscle and joint pain. 72-year-old male with a history of lung cancer. He apparently was diagnosed back in 2016 by fine-needle aspiration. She was discovered to have squamous cell carcinoma involving the right upper lobe. He underwent right upper lobectomy late in [address] Jayy Paniagua. Subsequent to that, he received chemotherapy and then more recently, immunotherapy with Opdivo. The patient's primary doctor is Dr. Shane in [place]. He sees my partner, Dr. Roldan for his lung cancer, and he also sees Dr. Aguayo for medical oncology. The patient did not receive any radiation therapy. More recently, the patient had a PET scan which revealed a lytic lesion in the rib on the right side #6, in addition he had a right supraclavicular lymph node which lit up on PET scan. The patient presented to the emergency department on December 29 with diffuse muscle and joint aches and pain and difficulty using his right upper extremity. He apparently was in the emergency room twice in the last couple of days and was prescribed some pain medication without benefit. Also, he tells us that his statin medication for high cholesterol was stopped thinking that that was the cause of the muscle pain. Anyway, the patient was admitted with a diagnosis of uncontrolled pain and he was admitted primarily for pain control. The patient apparently is also scheduled for a PET scan tomorrow although it's unclear to me whether or not it would be done given the fact that the patient is inpatient. The patient is not having any respiratory complaints at this time clinic shortness of breath cough wheezing chest congestion or phlegm production. The patient is seen again today 12/31/2017 in follow-up on the regular medical floor. He is awake and alert in no acute distress. He is much more comfortable today as compared to yesterday as far as his pain is concerned. Is currently on [place] much Dilaudid and Lidoderm patches. He is any pulmonary complaints. No shortness of breath, cough or congestion. Maintaining oxygen in the low 90s on 2 L/m per nasal cannula. He's been afebrile. No tachycardia. No tachypnea. Blood culture reveals no growth to date. The PET scan was unable to be performed today as the patient is an inpatient. It's rescheduled for next week. Objective - Vital Signs Vital signs: Vital Signs Temp 97.6 F 12/31/17 12:40 Pulse 80 12/31/17 12:40 Resp 18 12/31/17 12:40 BP 135/82 12/31/17 12:40 Pulse Ox 90 L 12/31/17 12:40 Intake & Output 12/30/17 12/31/17 12/31/17 18:59 06:59 18:59 Intake Total 600 1500 Output Total 1650 Balance 600 -150 Intake: Intake, IV Titration 600 900 Amount Sodium Chloride 0.9% 1, 600 900 000 ml @ 75 mls/hr IV . [id number] MOLLY Rx#:[id number] Oral 600 Output: Urine 1650 Other: Voiding Method Urinal Toilet Toilet # Voids 2 - Exam No acute distress, oriented 3. Currently on oxygen at 2 L/m per nasal cannula. HEENT examination is grossly unremarkable. Mucous membranes are moist. No oral lesions. Neck supple. Full range of motion. No adenopathy thyromegaly or neck vein distention. Cardiovascular examination reveals regular rhythm rate. S1-S2 normal. No S3 or S4. No discernible murmur noted. Lungs reveal clear breath sounds. Breath sounds are equal bilaterally. No adventitious lung sounds including wheezes rhonchi or crackles. Abdomen soft bowel sounds are heard. No masses or tenderness. Extremities are intact. No cyanosis clubbing or edema. Skin is without rash or lesion. Neurologic examination is brief but nonfocal. - Labs CBC & Chem 7: 12/29/17 13:52 12/29/17 13:52 Labs: Microbiology - Last 24 Hours (Table) 12/29/17 13:52 Blood Culture - Preliminary Blood No Growth after 24 hours Assessment and Plan Assessment: Impression: #1 Intractable pain of unclear etiology. 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 #2 Recurrent/metastatic non-small cell lung cancer, squamous cell type, currently on immunotherapy with the low. #3 Right upper lobectomy for non-small cell lung cancer and subsequent chemotherapy. #4 Metastatic lung cancer with lesions in the right sixth rib and right supraclavicular region. #5 History of coronary artery disease with previous stent placement. #6 History of COPD, currently inactive and stable. #7 Hyperlipidemia #8 Restless leg syndrome. #9 Previous history of chronic tobacco dependence. Plan: The patient was seen and evaluated by Dr. Uribe. He is currently stable from the pulmonary standpoint. His pain is better controlled. We will follow him on as-needed basis. I, the cosigning physician, performed a history & physical examination of the patient. Lungs sounds are clear. Maintaining good O2 saturations in the 90s on 2 L/m per nasal cannula. I discussed the assessment and plan of care with my nurse practitioner, Delfina Cummings. I attest to the above note as dictated by her.
[2017-12-31 15:38] VITALS: PULSE 78
--- NOTE | 2018-01-01 06:08 | DS ---
DISCHARGE SUMMARY DATE OF SERVICE: 12/29/2017 DATE OF DISCHARGE: December 31, 2017. FINAL DIAGNOSES: 1. Acute myositis causing proximal myopathy and muscle weakness and tenderness. 2. History of lung cancer of the right upper lobe lobectomy with recurrence of cancer and failed chemotherapy and immunotherapy. 3. Chronic obstructive pulmonary disease in an ex-smoker. 4. Chronically elevated right diaphragm. 5. Restless legs syndrome. 6. Essential hypertension. 7. Benign prostatic hypertrophy. 8. Gastroesophageal reflux disease. 9. Coronary artery disease with prior history of stent to the RCA in 2007. 10.Irritable bowel syndrome. 11.Chronic hypoxic respiratory failure on home oxygen 2 L. 12.Paroxysmal atrial fibrillation for which patient is chronically on Eliquis. HOSPITAL COURSE: This patient prior history of cancer with right upper lobectomy and recurrence of the cancer failed chemotherapy, now on immunotherapy, presents with severe weakness in all the muscles daily, not able to move, not able to lift his hands up. On of the differentials clinically was felt to be myositis. The patient empirically put on IV Solu-Medrol. Patient dramatic improvement, was able to get up on his own, was able to lift his hands up. The patient did have a cervical spine MRI as an outpatient that showed evidence of osteoarthritis, not felt to be responsible for manifestations. The patient is keen to go home. The patient is scheduled for muscle biopsy today. I spoke to Dr. Sutton. He will reschedule the biopsy on Tuesday or Tuesday next week as patient is very keen to go home today. The patient will be sent home on steroids. Did also speak to Dr. Palacios. On examination, afebrile, blood pressure 130/82. The patient is able to get up on his own. Able to lift his arm above the shoulder level. CONSULTATION: Dr. Uribe from Pulmonary; Dr. Corby Lara from Orthopedic Spine. Dr. Sutton from General surgery. Cardiothoracic Surgery. DISCHARGE MEDICATIONS: 1. Protonix 40 mg a day. 2. Amlodipine. 3. Benazepril. 4. Lotrel 5/10 1 tablet p.o. daily. 5. Vitamin D3 5000 units p.o. daily. 6. Cinnamon 500 mg p.o. daily. 7. Lipitor 40 mg q.h.s. 8. Eliquis 5 mg p.o. b.i.d. 9. Celexa 20 mg daily. 10.Flomax 0.4 mg p.o. daily. 11.Lopressor 25 mg daily. 12.Claritin 5 mg p.o. q.12. 13.Dulera 200/5 2 puffs b.i.d. 14.Fish oil 1000 mg a day. 15.Spiriva 1 capsule daily. 16.Hydroxyzine 25 mg p.o. daily. 17.Requip 2 mg p.o. q.h.s. 18.Vitamin B1 250 mg p.o. daily. 19.Lidoderm 5% patch topical daily. 20.Xanax 0.5 p.o. daily p.r.n. 21.Fentanyl patch as before. 22.Neurontin 200 mg q.h.s. 23.[place] 5 one tablet q.4h p.r.n. 24.Probiotic 1 capsule p.o. daily. 25.Compazine 10 mg p.o. q.6. 26.Medrol Dosepak . FOLLOWUP: With Dr. Shane in 1 week, Dr. Aguayo in 1 week, Dr. Sutton as scheduling the muscle biopsy. Discussion and discharge planning more than [address] Shane. MMODL / IJN: [id number] /
== END 2017-12-31 16:35 | disposition home or self-care (01) | DRG 556 ==
LOC: EC 12:50 → 5MS5E 15:27
PROVIDERS: ADMIT Hospitalist; ATTEND Hospitalist
DX: M60.89 Other myositis, multiple sites (principal); C34.11 Malignant neoplasm of upper lobe, right bronchus or lung; J96.11 Chronic respiratory failure with hypoxia; M50.00 Cervical disc disorder with myelopathy, unspecified cervical region; E78.00 Pure hypercholesterolemia, unspecified; F32.9 Major depressive disorder, single episode, unspecified; F51.04 Psychophysiologic insomnia; G25.81 Restless legs syndrome; G89.3 Neoplasm related pain (acute) (chronic); I10 Essential (primary) hypertension; I25.10 Atherosclerotic heart disease of native coronary artery without angina pectoris; I48.0 Paroxysmal atrial fibrillation; J44.9 Chronic obstructive pulmonary disease, unspecified; K21.9 Gastro-esophageal reflux disease without esophagitis; K58.9 Irritable bowel syndrome, unspecified; M47.9 Spondylosis, unspecified; M48.02 Spinal stenosis, cervical region; M54.12 Radiculopathy, cervical region; N40.0 Benign prostatic hyperplasia without lower urinary tract symptoms; Z79.01 Long term (current) use of anticoagulants; Z79.51 Long term (current) use of inhaled steroids; Z79.899 Other long term (current) drug therapy; Z80.1 Family history of malignant neoplasm of trachea, bronchus and lung; Z82.49 Family history of ischemic heart disease and other diseases of the circulatory system; Z83.3 Family history of diabetes mellitus; I80.8 Phlebitis and thrombophlebitis of other sites; Z87.891 Personal history of nicotine dependence; Z90.2 Acquired absence of lung [part of]; Z92.21 Personal history of antineoplastic chemotherapy; Z95.5 Presence of coronary angioplasty implant and graft; Z99.81 Dependence on supplemental oxygen; J98.6 Disorders of diaphragm; Z88.5 Allergy status to narcotic agent; Z88.8 Allergy status to other drugs, medicaments and biological substances; Z91.041 Radiographic dye allergy status; S43.421A Sprain of right rotator cuff capsule, initial encounter; Z79.891 Long term (current) use of opiate analgesic
CPT/HCPCS: 36415; 70450; 80053; 81003; 82550; 82553; 83605; 83735; 84484; 85025; 85610; 85730; 87040; 93005; 94640; 94760; 96361; 96374; 96376; 99285

== ENCOUNTER → 2017-12-29 | Outpatient (CLI) | payer MEDICARE ==
--- NOTE | 2017-12-30 12:17 | MR ---
EXAMINATION TYPE: MR cervical spine wo con DATE OF EXAM: 12/29/2017 COMPARISON: Correlation PET CT 10/01/2017 HISTORY: 72-year-old male with Extreme pain across shoulders, Hx of lung carcinoma TECHNIQUE: Multiplanar, multisequence images of the cervical spine were acquired. Findings: No craniocervical junction abnormality, predental space widening, or prevertebral soft tissue swellin g. Reversal of the normal cervical lordosis. Trace grade 1 retrolisthesis at C5-C6 and C6-C7. Remaining alignment is maintained. Moderate multilevel degenerative disc disease characterized by disc desiccation, mild disc interspace narrowing, and disc osteophyte complex formation. Scattered facet and uncovertebral joint arthropathy. No suspicious bone marrow replacement. Exam is degraded by extensive motion artifact. There is a component of mild congenital spinal canal s tenosis with AP canal dimension of 1 cm. At C2-C3, there is facet arthropathy without significant canal or foraminal stenosis. At C3-C4, disc osteophyte complex with facet and right-sided uncovertebral joint arthropathy. Changes result in mild right neuroforaminal stenosis and moderate spinal canal stenosis with abutment of the ventral cord. At C4-C5, broad-based disc osteophyte complex with uncovertebral joint and facet degenerative change. Changes result in moderate right and moderate to severe left neuroforaminal stenosis with moderate s essence canal stenosis abutting and indenting the ventral cord. At C5-C6, there is hypertrophic facet and uncovertebral joint arthropathy, particularly on the left. There is broad-based discussed by complex abutting and flattening the ventral cord causing a mild to moderate spinal canal stenosis. Changes result in severe left and [id number] right neuroforamin al stenosis. At C6-C7, broad-based disc osteophyte complex with uncovertebral joint and facet arthropathy, particu larly on the left. Changes result in moderate left and eila-ce-eclyffaf right neuroforaminal stenosis . Disc osteophyte complex abuts and flattens the ventral cord causing a mild spinal canal stenosis. At C7-T1, facet arthropathy with mild right and [id number]-[id number] left neuroforaminal stenosis. No sig nificant spinal canal stenosis. No prevertebral or paravertebral soft tissue abnormality seen. IMPRESSION: 1. Exam degraded by extensive motion artifacts. This particularly limits assessment of the cervical s essence cord. Further clinical correlation will be needed if concern for any myelopathic changes. No de finite cord edema when correlating with the axial series. 2. Congenital mild spinal canal stenosis with superimposed moderate multilevel degenerative disc dise ase as well as facet and uncovertebral joint arthropathy. 3. Reversal of the normal cervical lordosis with trace grade 1 retrolisthesis at C5-C6 and C6-C7. 4. Changes result in overall moderate spinal canal stenosis at C3-C4 and C4-C5. Mild to moderate spin al canal stenosis at C5-C6 and mild at C6-C7. At some of these levels, there is abutment and flatteni ng of the ventral cord. 5. Variable moderate to severe neuroforaminal stenoses as outlined above. 6. No suspicious bone marrow replacement along the cervical spine.
== END | disposition home or self-care (01) ==
LOC: RADMRIMAIN 12:04
PROVIDERS: ATTEND Internal Medicine Hematology & Oncology
DX: C34.11 Malignant neoplasm of upper lobe, right bronchus or lung (principal); M99.71 Connective tissue and disc stenosis of intervertebral foramina of cervical region; M48.02 Spinal stenosis, cervical region; M43.12 Spondylolisthesis, cervical region; M50.30 Other cervical disc degeneration, unspecified cervical region; M46.92 Unspecified inflammatory spondylopathy, cervical region
CPT/HCPCS: 72141

== ENCOUNTER 2018-01-02 12:00 | Day surgery (SDC) | payer MEDICARE ==
[2018-01-02 12:28] VITALS: TEMP 97.8
[2018-01-02] MEDS ORDERED: LACTATED RINGERS 1,000 ML IV ONE (12:33)
[2018-01-02] MEDS ORDERED: LIDOCAINE 1% 20 ML VIAL (10MG/ML) FOR IV START INTRADERMA ONE (12:34)
[2018-01-02] MEDS ORDERED: MORPHINE SULFATE 4 MG/ML SYRINGE IV PRN (12:47)
[2018-01-02] MEDS ORDERED: DEXAMETHASONE SOD PHOSPHATE 10 MG/ML 1 ML VIAL IV ONE (12:48)
[2018-01-02] MEDS ORDERED: ONDANSETRON 4 MG/2 ML VIAL IVP ONE (12:48)
[2018-01-02] MEDS ORDERED: PROPOFOL 10 MG/ML 20 ML VIAL IV ONE (12:55)
[2018-01-02] MEDS ORDERED: LIDOCAINE 1% INJ 10MG/ML (20 ML MDV) ONE (12:55)
[2018-01-02] MEDS ORDERED: MIDAZOLAM 2 MG/2 ML VIAL ONE (12:55)
[2018-01-02] MEDS ORDERED: fentaNYL (PF) 50 MCG/ML 2 ML AMP ONE (12:55)
--- NOTE | 2018-01-02 12:56 | P.GSHP ---
History of Present Illness H&P Date: 01/02/18 Chief Complaint: Muscle weakness Patient here today for elective muscle biopsy. He was seen over the weekend. Please refer to consult from 48 hours ago. Still having weakness in the shoulder although much improved. Rheumatology and oncology requesting a muscle biopsy. Past Medical History Past Medical History: Coronary Artery Disease (CAD), COPD, GERD/Reflux, Hyperlipidemia, Hypertension, Prostate Disorder, Thyroid Disorder Additional Past Medical History / Comment(s): rt LOBECTOMY FOR LUNG CANCER,pt stated he had 9 weeks of chemo "that did'nt work" then was placed on immunotherapy"has been on immunotherapy 11 weeks" , restless legs syndrome History of Any Multi-Drug Resistant Organisms: None Reported Past Surgical History: Adenoidectomy, Appendectomy, Cholecystectomy, Heart Catheterization With Stent, Tonsillectomy Additional Past Surgical History / Comment(s): bilateral knee surgery(on cartilage), CARDIAC STENT- , lung bx,02-27-16 ROBOTIC ASSISTED RT THOROSCOPY/RT UPPER LOBECTOMY /LYMPH NODE DISECTION. Past Anesthesia/Blood Transfusion Reactions: No Reported Reaction Date of Last Stent Placement:: 2007 Past Psychological History: Anxiety, Depression Additional Psychological History / Comment(s): Has been treated for depression in the past Smoking Status: Former smoker Past Alcohol Use History: Daily Additional Past Alcohol Use History / Comment(s): started smokiong 1964 and quit 2008 smoked 2 ppd. drinks3-5 beer or wine per day. Past Drug Use History: None Reported Additional Drug Use History / Comment(s): tried hemp oil once"did'nt do anything for me so i did'nt continue. - Past Family History Mother Family Medical History: Cancer Additional Family Medical History / Comment(s): breast and lung cancer Father Family Medical History: Diabetes Mellitus, Myocardial Infarction (HI) Additional Family Medical History / Comment(s): mi x2 with 2nd one Medications and Allergies Home Medications Medication Instructions Recorded Confirmed Type Pantoprazole Sodium [Protonix] 40 mg PO DAILY 12/15/15 12/29/17 History amLODIPine BESYLATE/BENAZEPRIL 1 cap PO QAM 12/15/15 12/29/17 History [Lotrel 5-10 mg Capsule] Cholecalciferol [Vitamin D3] 5,000 unit PO DAILY 02/20/16 12/29/17 History Cinnamon Bark [Cinnamon] 500 mg PO DAILY 02/20/16 12/29/17 History Atorvastatin [Lipitor] 40 mg PO HS 02/27/16 12/29/17 History Apixaban [Eliquis] 5 mg PO BID #60 tab 03/06/16 12/29/17 Rx Citalopram Hydrobromide [CeleXA] 20 mg PO QAM tab 03/06/16 12/29/17 Rx Tamsulosin [Flomax] 0.4 mg PO QAM cap.er.24h 03/06/16 12/29/17 Rx Metoprolol Tartrate [Lopressor] 25 mg PO DAILY 04/25/16 12/29/17 History Loratadine [Claritin] 5 mg PO Q12HR tab 04/27/16 12/29/17 Rx Mometasone/Formoterol [Dulera 200 2 puff INHALATION RT-BID 06/16/17 12/29/17 History Mcg/5 Mcg Inhaler] Vivian-3 Fatty Acids/Fish Oil [Fish 1,200 mg PO DAILY 06/16/17 12/29/17 History Oil 1,000 mg Softgel] Tiotropium 18 Mcg/Puff [Spiriva] 1 cap INHALATION DAILY 06/16/17 12/29/17 History hydrOXYzine HCL 25 mg PO DAILY PRN 06/16/17 12/29/17 History rOPINIRole HCL [Requip] 2 mg PO HS 06/16/17 12/29/17 History Thiamine [Vitamin B-1] 250 mg PO DAILY 07/07/17 12/29/17 History Lidocaine 5% Patch [Lidoderm 5% 1 patch TOPICAL DAILY #30 patch 12/28/17 Rx Patch] ALPRAZolam [Xanax] 0.5 mg PO DAILY PRN 12/29/17 12/29/17 History Fentanyl Patch (Unknown Dose) 1 patch TOPICAL ONCE 12/29/17 12/29/17 History Gabapentin [Neurontin] 200 mg PO HS 12/29/17 12/29/17 History HYDROcodone/APAP 5-325MG [[place] 1 tab PO Q4HR PRN 12/29/17 12/29/17 History 5-325] L.acidoph,Paracasei, B.lactis 1 cap PO DAILY 12/29/17 12/29/17 History [Probiotic] Prochlorperazine [Compazine] 10 mg PO Q6H 12/29/17 12/29/17 History methylPREDNISolone Dose Pack 4 mg PO DIRECTED #21 package 12/31/17 Rx [Medrol Dose Pack] Allergies Allergy/AdvReac Type Severity Reaction Status Date / Time cat dander Allergy Rash/Hives Verified 12/29/17 13:13 Iodinated Contrast- Oral and Allergy Unknown Verified 01/02/18 12:48 IV Dye iodine Allergy Nausea Verified 12/29/17 13:13 Surgical - Exam Vital Signs Temp Pulse Resp BP Pulse Ox 97.8 F 62 20 123/75 88 L 01/02/18 12:27 01/02/18 12:27 01/02/18 12:27 01/02/18 12:27 01/02/18 12:27 Physical exam: General: Well-developed, well-nourished HEENT: Normocephalic, sclerae nonicteric Abdomen: Nontender, nondistended Extremities: No edema Neuro: Alert and oriented Assessment and Plan (1) Muscle weakness Narrative/Plan: Will proceed with muscle biopsy at this time. Site chosen right quadriceps. Risks of bleeding and infection and nerve injury reviewed. They understand and wish to proceed. Current Visit: Yes Status: Acute Code(s): M62.81 - MUSCLE WEAKNESS ( GENERALIZED) SNOMED Code(s): 59115548
[2018-01-02] MEDS ORDERED: LACTATED RINGERS 1,000 ML IV SCH (13:00)
[2018-01-02] MEDS ORDERED: BUPIVACAIN-EPI 0.5%-1:200,000 30 ML VIAL SQ ONE ×2 (13:12)
[2018-01-02] MEDS ORDERED: HYDROcodone/APAP 5-325MG 1 EACH TAB PO PRN (13:36)
[2018-01-02] MEDS ORDERED: NALOXONE 0.4 MG/ML 1 ML VIAL IV PRN (13:36)
--- NOTE | 2018-01-02 13:39 | P.OP ---
Date of Procedure: 01/02/18 Procedure(s) Performed: PREOPERATIVE DIAGNOSIS: Muscle weakness POSTOPERATIVE DIAGNOSIS: Same PROCEDURE: Right quadriceps muscle biopsy SURGEON: Herman EBL: Minimal ANESTHESIA: Sedation plus local COMPLICATIONS: None OPERATIVE PROCEDURE: Patient placed in the operative table in supine position. The patient's right thigh was prepped and draped in usual sterile fashion. A longitudinal incision was made overlying the right thigh. The skin was localized prior to doing so. The subcutaneous tissues were divided using electrocautery. The fascia was divided sharply. The muscle was easily identified. A single portion of muscular tissue was taken measuring 3.5 cm in length by approximately 1 cm with. This was sent to pathology as a fresh specimen. Subcutaneous tissues were closed using 3-0 Vicryl sutures and the skin using a running 4-0 Monocryl stitch. Steri-Strips and sterile dressings were applied. DISPOSITION: Stable to recovery room
[2018-01-02 13:45] VITALS: PULSE 65
[2018-01-02 13:57] VITALS: BP 130/82; RESP 16
== END 2018-01-02 14:20 | disposition home or self-care (01) ==
LOC: OR 12:00
PROVIDERS: ATTEND Surgery
DX: G72.49 Other inflammatory and immune myopathies, not elsewhere classified (principal); G89.4 Chronic pain syndrome; I25.10 Atherosclerotic heart disease of native coronary artery without angina pectoris; J44.9 Chronic obstructive pulmonary disease, unspecified; K21.9 Gastro-esophageal reflux disease without esophagitis; E78.5 Hyperlipidemia, unspecified; I10 Essential (primary) hypertension; E07.9 Disorder of thyroid, unspecified; G25.81 Restless legs syndrome; F41.9 Anxiety disorder, unspecified; F32.9 Major depressive disorder, single episode, unspecified; I48.0 Paroxysmal atrial fibrillation; N40.0 Benign prostatic hyperplasia without lower urinary tract symptoms; Z95.5 Presence of coronary angioplasty implant and graft; Z99.81 Dependence on supplemental oxygen; Z79.01 Long term (current) use of anticoagulants; Z79.52 Long term (current) use of systemic steroids; Z79.899 Other long term (current) drug therapy; Z90.2 Acquired absence of lung [part of]; Z90.49 Acquired absence of other specified parts of digestive tract; Z85.118 Personal history of other malignant neoplasm of bronchus and lung; Z92.21 Personal history of antineoplastic chemotherapy; Z87.891 Personal history of nicotine dependence; J30.81 Allergic rhinitis due to animal (cat) (dog) hair and dander; Z91.041 Radiographic dye allergy status; Z91.09 Other allergy status, other than to drugs and biological substances
CPT/HCPCS: 20200; J2250; J1100; J2405; J2001; J3010; J2704

== ENCOUNTER → 2018-01-07 | Outpatient (CLI) | payer MEDICARE ==
--- NOTE | 2018-01-09 12:36 | PE ---
Nuclear medicine PET/CT HISTORY: Lung carcinoma, subsequent Patient received 13 mCi F-18 FDG intravenously in delayed scanning was performed the skull base to th e mid thighs. Localization and attenuation correction CT scan was performed. Correlation to prior nuclear medicine PET/CT dated 10/01/2017 Neck and chest: The pleural-based mass in the right upper lobe is again noted and measures approximat dwayne 2.6 cm in greatest dimension as compared to prior exam when it measured approximately 3 cm. SUV i s 2.7. In the right lower lobe at the costophrenic angle level there is a soft tissue mass present po sterior laterally measuring approximately 2.9 cm, SUV is 5.2. Supraclavicular location on the right s hows an SUV 2.4 corresponding to lymph node. There is interstitial lung disease. Coronary artery calc ifications are present. Heart is enlarged. Pulmonary artery appears prominently, correlate for possib le pulmonary artery hypertension. Abdomen pelvis: No evident adrenal mass, no retroperitoneal adenopathy. No suspicious hypermetabolic uptake. Diverticular changes associated with the sigmoid colon. Prostate is enlarged. Urinary bladder shows wall thickening possibly due to chronic outlet obstruction. No pelvic adenopathy. Patient is p ost cholecystectomy. Osseous structures: Lytic lesion within the right sixth rib anterolaterally shows SUV of 11.7. Lytic appearance appears to have progressed. At the level of the right apical lung mass the underlying bone shows a small focus of uptake, SUV 3.2 at the lateral aspect of the upper vertebral body. There is a focus of uptake present within the right eighth rib laterally which was not seen on prior exam. IMPRESSION: The uptake in the right lung apex appears to have diminished somewhat in the interval. Si milar distribution of abnormal uptake as described, difficult to exclude new eighth rib lesion.
== END | disposition home or self-care (01) ==
LOC: RADPETMAIN 11:59
PROVIDERS: ATTEND Internal Medicine Hematology & Oncology
DX: C34.11 Malignant neoplasm of upper lobe, right bronchus or lung (principal); Z92.21 Personal history of antineoplastic chemotherapy
CPT/HCPCS: 78815; A9552

== ENCOUNTER 2018-04-12 06:54 | Emergency (ER) | payer MEDICARE ==
[2018-04-12 07:20] VITALS: TEMP 98.4
[2018-04-12] MEDS ORDERED: IPRATROPIUM-ALBUTEROL 3 ML NEB INHALATION STA (07:48)
[2018-04-12] MEDS ORDERED: methylPREDNISolone SOD SUCCI 125 MG/2 ML VIAL IV STA (07:48)
--- NOTE | 2018-04-12 08:39 | XR ---
EXAMINATION TYPE: XR chest 2V DATE OF EXAM: 04/12/2018 COMPARISON: Chest x-ray December 28, 2017. Outside chest CT February 15, 2018. Most recent PET/CT Oc tober 2017. HISTORY: Difficulty in breathing and right-sided rib pain. History of lung cancer. TECHNIQUE: Frontal and lateral views of the chest are obtained. FINDINGS: There is chronic parenchymal change with elevated right hemidiaphragm. There is no new susp icious focal airspace opacity, pleural effusion, or pneumothorax seen bilaterally. Correlating with C T and PET/CT there is enlarging right lateral basilar mass or neoplasm causing pathologic fracture of the lower right lateral rib likely accounting for patient's symptoms IMPRESSION: Chronic parenchymal change without acute pulmonary process. Enlarging lateral right basi lar mass causing destructive pathologic fracture of the lateral right lower rib likely accounting for patient's symptoms.
--- NOTE | 2018-04-12 08:44 | ED ---
SOB HPI - General Chief Complaint: Shortness of Breath Stated Complaint: Difficulty Breathing Time Seen by Provider: 04/12/18 07:48 Source: EMS, RN notes reviewed, old records reviewed Mode of arrival: EMS Limitations: no limitations - History of Present Illness Initial Comments: This is a 73-year-old male to the ER for evaluation patient does say for evaluation of significant right-sided chest pain. Patient does have known CA with no rib fractures. No recent travel history no sick contacts no fevers cough or congestion. Patient does admit to shortness of breath he does have underlying COPD. He states his pain is progressively worsened he does get pathologic fracture secondary to his tumor pain medication at home is not helping currently. Patient does have CAT scan scheduled for later this week. MD Complaint: shortness of breath, chest pain (Right-sided chest pain and rib pain) -: days(s) Radiation: other (To his anterior chest wall) Severity: severe Severity scale (1-10): 8 Quality: aching Consistency: constant Improves With: medication Worsens With: movement Known History Of: COPD, other (Lung cancer) Context: other (Recent coughing) Associated Symptoms: denies other symptoms, chest pain - Related Data Home Medications Medication Instructions Recorded Confirmed Pantoprazole Sodium [Protonix] 40 mg PO HS 12/15/15 04/12/18 amLODIPine BESYLATE/BENAZEPRIL 1 cap PO QAM 12/15/15 04/12/18 [Lotrel 5-10 mg Capsule] Cholecalciferol [Vitamin D3] 5,000 unit PO HS 02/20/16 04/12/18 Cinnamon Bark [Cinnamon] 1,000 mg PO DAILY 02/20/16 04/12/18 Atorvastatin [Lipitor] 80 mg PO HS 02/27/16 04/12/18 Metoprolol Tartrate [Lopressor] 25 mg PO DAILY 04/25/16 04/12/18 Mometasone/Formoterol [Dulera 200 2 puff INHALATION RT-BID 06/16/17 04/12/18 Mcg/5 Mcg Inhaler] Brandon-3 Fatty Acids/Fish Oil [Fish 1 cap PO DAILY 06/16/17 04/12/18 Oil 1,000 mg Softgel] Tiotropium 18 Mcg/Puff [Spiriva] 1 cap INHALATION RT-DAILY 06/16/17 04/12/18 hydrOXYzine HCL 25 - 50 mg PO DAILY PRN 06/16/17 04/12/18 rOPINIRole HCL [Requip] 1 mg PO BID@1400,2100 06/16/17 04/12/18 Thiamine [Vitamin B-1] 250 mg PO DAILY 07/07/17 04/12/18 ALPRAZolam [Xanax] 0.5 mg PO DAILY PRN 12/29/17 04/12/18 Gabapentin [Neurontin] 200 mg PO HS 12/29/17 04/12/18 L.acidoph,Paracasei, B.lactis 1 cap PO DAILY 12/29/17 04/12/18 [Probiotic] Prochlorperazine [Compazine] 10 mg PO Q6H PRN 12/29/17 04/12/18 Albuterol Nebulized [Ventolin 2.5 mg INHALATION RT-QID PRN 04/12/18 04/12/18 Nebulized] oxyCODONE-APAP 5-325MG [Percocet 1 tab PO Q6H 04/12/18 04/12/18 5-325 mg] predniSONE 10 mg PO BID 04/12/18 04/12/18 Previous Rx's Medication Instructions Recorded Apixaban [Eliquis] 5 mg PO BID #60 tab 03/06/16 Citalopram Hydrobromide [CeleXA] 20 mg PO QAM tab 03/06/16 Tamsulosin [Flomax] 0.4 mg PO QAM cap.er.24h 03/06/16 Loratadine [Claritin] 5 mg PO Q12HR tab 04/27/16 Allergies Allergy/AdvReac Type Severity Reaction Status Date / Time cat dander Allergy Rash/Hives Verified 04/12/18 09:35 Iodinated Contrast- Oral and Allergy Unknown Verified 04/12/18 09:35 IV Dye iodine Allergy Nausea Verified 04/12/18 09:35 Review of Systems ROS Statement: Those systems with pertinent positive or pertinent negative responses have been documented in the HPI. ROS Other: All systems not noted in ROS Statement are negative. Past Medical History Past Medical History: Coronary Artery Disease (CAD), COPD, GERD/Reflux, Hyperlipidemia, Hypertension, Prostate Disorder, Thyroid Disorder Additional Past Medical History / Comment(s): rt LOBECTOMY FOR LUNG CANCER,pt stated he had 9 weeks of chemo "that did'nt work" then was placed on immunotherapy"has been on immunotherapy 11 weeks" , restless legs syndrome History of Any Multi-Drug Resistant Organisms: None Reported Past Surgical History: Adenoidectomy, Appendectomy, Cholecystectomy, Heart Catheterization With Stent, Tonsillectomy Additional Past Surgical History / Comment(s): bilateral knee surgery(on cartilage), CARDIAC STENT- , lung bx,02-27-16 ROBOTIC ASSISTED RT THOROSCOPY/RT UPPER LOBECTOMY /LYMPH NODE DISECTION. Past Anesthesia/Blood Transfusion Reactions: No Reported Reaction Date of Last Stent Placement:: 2007 Past Psychological History: Anxiety, Depression Smoking Status: Former smoker Past Alcohol Use History: Daily Past Drug Use History: None Reported - Past Family History Mother Family Medical History: Cancer Additional Family Medical History / Comment(s): breast and lung cancer Father Family Medical History: Diabetes Mellitus, Myocardial Infarction ([place]) Additional Family Medical History / Comment(s): mi x2 with 2nd one General Exam Limitations: no limitations General appearance: alert, in no apparent distress Head exam: Present: atraumatic, normocephalic, normal inspection Eye exam: Present: normal appearance, PERRL, EOMI. Absent: scleral icterus, conjunctival injection, periorbital swelling ENT exam: Present: normal exam, mucous membranes moist Neck exam: Present: normal inspection. Absent: tenderness, meningismus, lymphadenopathy Respiratory exam: Present: normal lung sounds bilaterally. Absent: respiratory distress, wheezes, rales, rhonchi, stridor Cardiovascular Exam: Present: regular rate, normal rhythm, normal heart sounds, other (Significant right-sided chest wall pain and tenderness). Absent: systolic murmur, diastolic murmur, rubs, gallop, clicks GI/Abdominal exam: Present: soft, normal bowel sounds. Absent: distended, tenderness, guarding, rebound, rigid Extremities exam: Present: normal inspection, full ROM, normal capillary refill. Absent: tenderness, pedal edema, joint swelling, calf tenderness Back exam: Present: normal inspection Neurological exam: Present: alert, oriented X3, CN II-XII intact Psychiatric exam: Present: normal affect, normal mood Skin exam: Present: warm, dry, intact, normal color. Absent: rash Course Vital Signs 04/12/18 04/12/18 04/12/18 07:10 09:07 09:20 Temperature 98.4 F Pulse Rate 84 89 78 Respiratory 26 H Rate Blood Pressure 152/90 O2 Sat by Pulse 97 Oximetry 04/12/18 11:34 Temperature Pulse Rate 73 Respiratory 20 Rate Blood Pressure 157/94 O2 Sat by Pulse 96 Oximetry - Reevaluation(s) Reevaluation #1: 04/12/18 10:29 Medical records reviewed Reevaluation #2: 04/12/18 10:29 Patient does have improvement pain control 04/12/18 12:00 Patient's pain is now well controlled with no shortness of breath Medical Decision Making - Medical Decision Making 73 male the ER for evaluation CT does show rib pain, rib lesions, patient can be discharged home - Lab Data Result diagrams: 04/12/18 08:01 04/12/18 08:01 Lab Results 04/12/18 04/12/18 04/12/18 Range/Units 08:01 08:01 08:01 WBC 10.9 H (3.8-10.6) k/uL RBC 4.26 L (4.30-5.90) m/uL Hgb 13.9 (13.0-17.5) gm/dL Hct 41.1 (39.0-53.0) % MCV 96.4 (80.0-100.0) fL MCH 32.6 (25.0-35.0) pg MCHC 33.8 (31.0-37.0) g/dL RDW 15.0 (11.5-15.5) % Plt Count 219 (150-450) k/uL Neutrophils % 86 % Lymphocytes % 7 % Monocytes % 5 % Eosinophils % 1 % Basophils % 0 % Neutrophils # 9.3 H (1.3-7.7) k/uL Lymphocytes # 0.7 L (1.0-4.8) k/uL Monocytes # 0.5 (0-1.0) k/uL Eosinophils # 0.1 (0-0.7) k/uL Basophils # 0.1 (0-0.2) k/uL PT (9.0-12.0) sec INR (<1.2) APTT (22.0-30.0) sec Sodium 137 (137-145) mmol/L Potassium 4.8 (3.5-5.1) mmol/L Chloride 102 (98-107) mmol/L Carbon Dioxide 28 (22-30) mmol/L Anion Gap 7 mmol/L BUN 18 (9-20) mg/dL Creatinine 0.81 (0.66-1.25) mg/dL Est GFR (CKD-EPI)AfAm >90 (>60 ml/min/1.73 sqM) Est GFR (CKD-EPI)NonAf 89 (>60 ml/min/1.73 sqM) Glucose 122 H (74-99) mg/dL Calcium 9.3 (8.4-10.2) mg/dL Magnesium 1.8 (1.6-2.3) mg/dL Total Bilirubin 0.6 (0.2-1.3) mg/dL AST 25 (17-59) U/L ALT 48 (21-72) U/L Alkaline Phosphatase 66 (38-126) U/L Total Creatine Kinase 104 (55-170) U/L CK-MB (CK-2) 4.1 H (0.0-2.4) ng/mL CK-MB (CK-2) Rel Index 3.9 Troponin I <0.012 (0.000-0.034) ng/mL NT-Pro-B Natriuret Pep pg/mL Total Protein 6.2 L (6.3-8.2) g/dL Albumin 3.8 (3.5-5.0) g/dL 04/12/18 04/12/18 Range/Units 08:01 08:01 WBC (3.8-10.6) k/uL RBC (4.30-5.90) m/uL Hgb (13.0-17.5) gm/dL Hct (39.0-53.0) % MCV (80.0-100.0) fL MCH (25.0-35.0) pg MCHC (31.0-37.0) g/dL RDW (11.5-15.5) % Plt Count (150-450) k/uL Neutrophils % % Lymphocytes % % Monocytes % % Eosinophils % % Basophils % % Neutrophils # (1.3-7.7) k/uL Lymphocytes # (1.0-4.8) k/uL Monocytes # (0-1.0) k/uL Eosinophils # (0-0.7) k/uL Basophils # (0-0.2) k/uL PT 9.8 (9.0-12.0) sec INR 0.9 (<1.2) APTT 21.7 L (22.0-30.0) sec Sodium (137-145) mmol/L Potassium (3.5-5.1) mmol/L Chloride (98-107) mmol/L Carbon Dioxide (22-30) mmol/L Anion Gap mmol/L BUN (9-20) mg/dL Creatinine (0.66-1.25) mg/dL Est GFR (CKD-EPI)AfAm (>60 ml/min/1.73 sqM) Est GFR (CKD-EPI)NonAf (>60 ml/min/1.73 sqM) Glucose (74-99) mg/dL Calcium (8.4-10.2) mg/dL Magnesium (1.6-2.3) mg/dL Total Bilirubin (0.2-1.3) mg/dL AST (17-59) U/L ALT (21-72) U/L Alkaline Phosphatase (38-126) U/L Total Creatine Kinase (55-170) U/L CK-MB (CK-2) (0.0-2.4) ng/mL CK-MB (CK-2) Rel Index Troponin I (0.000-0.034) ng/mL NT-Pro-B Natriuret Pep 60 pg/mL Total Protein (6.3-8.2) g/dL Albumin (3.5-5.0) g/dL - EKG Data -: EKG Interpreted by Me (EKG shows sinus rhythm rate of 60, [place] 156 6, QRS 88, QTc 41) - Radiology Data Radiology results: report reviewed (Chest x-ray is positive for rib fractures, CT chest is positive for rib fractures with rib lesions), image reviewed Disposition Clinical Impression: Lung mass, Intractable pain, Rib lesion Disposition: HOME SELF-CARE Instructions: Rib Fracture (ED) Is patient prescribed a controlled substance at d/c from ED?: No Referrals: Cooper Shane MD [Primary Care Provider] - 1-2 days
[2018-04-12] MEDS ORDERED: MORPHINE SULFATE 4 MG/ML SYRINGE IVP STA (08:47)
[2018-04-12] MEDS ORDERED: MORPHINE SULFATE 2 MG/ML SYRINGE IM STA (08:47)
[2018-04-12 08:58] LABS: ALT 48 U/L (21-72); AST 25 U/L (17-59); Albumin 3.8 g/dL (3.5-5.0); Alkaline Phosphatase 66 U/L (38-126); Anion Gap 7 mmol/L; Blood Urea Nitrogen 18 mg/dL (9-20); Calcium 9.3 mg/dL (8.4-10.2); Carbon Dioxide 28 mmol/L (22-30); Chloride 102 mmol/L (98-107); Glucose 122 mg/dL (74-99); Magnesium 1.8 mg/dL (1.6-2.3); Potassium 4.8 mmol/L (3.5-5.1); Sodium 137 mmol/L (137-145); Total Bilirubin 0.6 mg/dL (0.2-1.3); Total Protein 6.2 g/dL (6.3-8.2)
[2018-04-12 09:01] LABS: INR 0.9 (<1.2); Prothrombin Time 9.8 sec (9.0-12.0)
[2018-04-12 09:02] LABS: Basophils # (A) 0.1 k/uL (0-0.2); Basophils % (A) 0 %; Eosinophils # (A) 0.1 k/uL (0-0.7); Eosinophils % (A) 1 %; HCT 41.1 % (39.0-53.0); HGB 13.9 gm/dL (13.0-17.5); Lymphocytes # (A) 0.7 k/uL (1.0-4.8); Lymphocytes % (A) 7 %; MCH 32.6 pg (25.0-35.0); MCHC 33.8 g/dL (31.0-37.0); MCV 96.4 fL (80.0-100.0); Mean Platelet Volume 7.6; Monocytes # (A) 0.5 k/uL (0-1.0); Monocytes % (A) 5 %; Neutrophils # (A) 9.3 k/uL (1.3-7.7); Neutrophils % (A) 86 %; Platelet Count 219 k/uL (150-450); RBC 4.26 m/uL (4.30-5.90); WBC 10.9 k/uL (3.8-10.6)
[2018-04-12 09:05] LABS: Partial Thromboplastin Time 21.7 sec (22.0-30.0)
[2018-04-12 09:16] LABS: Creatine Kinase 104 U/L (55-170)
[2018-04-12 09:27] LABS: Creatine Kinase MB 4.1 ng/mL (0.0-2.4); Troponin I <0.012 ng/mL (0.000-0.034)
[2018-04-12] MEDS ORDERED: KETOROLAC 30 MG/ML 1 ML VIAL IVP STA (10:02)
[2018-04-12] MEDS ORDERED: HYDROmorphone 0.5 MG/0.5 ML SYRINGE IVP STA (10:02)
--- NOTE | 2018-04-12 11:30 | CT ---
EXAMINATION TYPE: CT chest wo con DATE OF EXAM: 04/12/2018 COMPARISON: 02/15/2018, PET scan 01/07/2018 HISTORY: Right sided Chest pain CT DLP: 399.7 mGycm. Automated Exposure Control for Dose Reduction was Utilized. TECHNIQUE: CT scan of the thorax is performed without IV contrast. FINDINGS: LUNGS: Emphysematous changes are again noted. There is a nodule in the posterior segment right lower lobe measuring 6 mm which was not clearly seen on the prior exam. Subpleural nodule right lower lobe laterally measuring 5 mm noted appears stable. Interlobular septal thickening at the lung bases compatible with chronic interstitial lung disease. Along the right lower lobe near the costophrenic angle adjacent to the lytic rib lesion there are per sistent a soft tissue pleural-based mass which appears to be reduced in width on today's exam measuri ng 6 mm and on previous exam measuring 9 mm. Right paratracheal soft tissue mass medial margin of the right upper lobe is reduced in size previous ly measuring 3 cm and now measuring 1.4 cm. Additional pleural-based nodules are seen in the right lo wer lobe. There is a 5 mm posterior segment left lower lobe nodule image 40. MEDIASTINUM: Lack of IV contrast is noted to limit evaluation for mediastinal and especially hilar ad enopathy. There are no definitive greater than 1 cm hilar or mediastinal lymph nodes. No cardiomega ly or pericardial effusion is seen. Atherosclerotic change of the aorta. Coronary artery calcificatio n seen. OTHER: Lytic rib lesions again noted with areas of fracture which are healing. Pleural-based mass arron ng the right lower lobe is stable. Small lymph node in the right supraclavicular region noted. Surgic al clips in the gallbladder fossa noted. Changes of chronic thyroid nodularity noted. Liver somewhat heterogeneous without evidence of discrete mass. IMPRESSION: 1. There are lytic destructive rib lesions involving the right rib cage with evidence of previous fra ctures. 2. The right upper and right lower lobe masses appear to be reduced in size as measured above. Multip le additional subcentimeter nodules as discussed above. 3. COPD
[2018-04-12 11:36] VITALS: BP 157/94; PULSE 73; RESP 20
== END 2018-04-12 12:07 | disposition home or self-care (01) ==
LOC: EC 06:54
DX: M84.48XD Pathological fracture, other site, subsequent encounter for fracture with routine healing (principal); R91.8 Other nonspecific abnormal finding of lung field; J44.9 Chronic obstructive pulmonary disease, unspecified; E78.5 Hyperlipidemia, unspecified; I10 Essential (primary) hypertension; I25.10 Atherosclerotic heart disease of native coronary artery without angina pectoris; K21.9 Gastro-esophageal reflux disease without esophagitis; G25.81 Restless legs syndrome; F41.9 Anxiety disorder, unspecified; Z87.891 Personal history of nicotine dependence; Z91.041 Radiographic dye allergy status; Z91.048 Other nonmedicinal substance allergy status; Z79.51 Long term (current) use of inhaled steroids; Z79.52 Long term (current) use of systemic steroids; Z79.891 Long term (current) use of opiate analgesic; Z79.899 Other long term (current) drug therapy; Z92.21 Personal history of antineoplastic chemotherapy; Z92.25 Personal history of immunosuppression therapy; Z85.118 Personal history of other malignant neoplasm of bronchus and lung; Z90.2 Acquired absence of lung [part of]; Z95.5 Presence of coronary angioplasty implant and graft; Z80.1 Family history of malignant neoplasm of trachea, bronchus and lung; Z82.49 Family history of ischemic heart disease and other diseases of the circulatory system
CPT/HCPCS: 99285; 96374; 96375 ×3; 96372; 36415; 94640; 93005; 83880; 80053; 82550; 82553; 83735; 84484; 85025; 85610; 85730; 71046; 71250; J2270 ×2; J2930; J1885; J1170

== ENCOUNTER 2018-06-11 20:09 | Emergency (ER) | payer MEDICARE ==
[2018-06-11 20:22] VITALS: BP 145/106; PULSE 101; RESP 32; TEMP 98.3
[2018-06-11] MEDS ORDERED: MORPHINE SULFATE 4 MG/ML SYRINGE IVP STA (20:25)
[2018-06-11] MEDS ORDERED: SODIUM CHLORIDE 0.9% 1,000 ML IV ONE (20:25)
[2018-06-11 21:03] LABS: Basophils % (A) 0 %; Eosinophils # (A) 0.1 k/uL (0-0.7); Eosinophils % (A) 1 %; HCT 44.6 % (39.0-53.0); HGB 14.7 gm/dL (13.0-17.5); Lymphocytes # (A) 1.2 k/uL (1.0-4.8); Lymphocytes % (A) 10 %; MCH 32.7 pg (25.0-35.0); MCV 99.1 fL (80.0-100.0); Mean Platelet Volume 7.6; Monocytes # (A) 0.8 k/uL (0-1.0); Monocytes % (A) 7 %; Neutrophils # (A) 8.9 k/uL (1.3-7.7); Neutrophils % (A) 78 %; Platelet Count 214 k/uL (150-450); RDW 13.5 % (11.5-15.5); WBC 11.3 k/uL (3.8-10.6)
--- NOTE | 2018-06-11 21:09 | XR ---
Chest x-ray with right RIBS HISTORY: History of right upper lobectomy and fracture, pain, shortness of breath Frontal view of the chest and 5 views of the right ribs are submitted. Correlation to prior chest CT and chest x-ray 04/12/2018 There is chronic elevation of right hemidiaphragm, some minimal basilar atelectasis is suspected. No evident pneumothorax. Eighth and ninth ribs posteriorly show fractures with pseudoarthrosis. Intersti tium is prominent. Heart is within normal limits. No evident effusion. Surgical clips present right u pper quadrant. IMPRESSION: No acute abnormality. Chronic nonhealed rib fractures, pseudoarthroses.
[2018-06-11 21:12] LABS: Bilirubin, Delta 0.2 mg/dL (0.0-0.2); Bilirubin,Unconjugated 0.3 mg/dL (0.0-1.1); Calcium 9.5 mg/dL (8.4-10.2); Potassium 4.7 mmol/L (3.5-5.1); Total Bilirubin 0.5 mg/dL (0.2-1.3); Total Protein 6.5 g/dL (6.3-8.2)
[2018-06-11 21:14] LABS: VBG PH 7.44 (7.31-7.41)
--- NOTE | 2018-06-11 22:45 | CT ---
EXAM: CT Neck Without Intravenous Contrast CLINICAL HISTORY: ITS.REASON CT Reason: dysphagia TECHNIQUE: Axial computed tomography images of the neck without intravenous contrast. CTDI is 22 mGy and DLP is 944 mGy-cm. This CT exam was performed using one or more of the following dose reduction techniques: automated exposure control, adjustment of the mA and/or kV according to patient size, and/or use of iterative reconstruction technique. COMPARISON: No relevant prior studies available. FINDINGS: Oropharynx: No significant tonsillar enlargement. Hypopharynx: Unremarkable. Larynx: Normal epiglottis. Trachea: Unremarkable. Retropharyngeal space: Unremarkable. Submandibular/parotid glands: Glands are normal in size. Thyroid: 14 mm nodule in the right thyroid gland. Bones/joints: No acute fracture. Lytic lesion is again noted at the right aspect of T2 with sclerotic surrounding changes. Soft tissues: Unremarkable. Vasculature: Unremarkable. Lymph nodes: No lymphadenopathy. Lung apices: Emphysema. IMPRESSION: 1. No acute findings in the neck. 2. 14 mm right thyroid gland nodule. Can be correlated with ultrasound if clinically warranted. 3. Lytic lesion in the right aspect of T2 vertebral body with sclerotic changes, possibly representing metastasis.
--- NOTE | 2018-06-11 22:59 | CT ---
EXAM: CT Chest Without Intravenous Contrast CLINICAL HISTORY: ITS.REASON CT Reason: Pain TECHNIQUE: Axial computed tomography images of the chest without intravenous contrast. CTDI is 22 mGy and DLP is 944 mGy-cm. This CT exam was performed using one or more of the following dose reduction techniques: automated exposure control, adjustment of the mA and/or kV according to patient size, and/or use of iterative reconstruction technique. COMPARISON: No relevant prior studies available. FINDINGS: Lungs: Emphysematous changes. Mild fibrosis at the lung bases. Small nodule seen in the prior exam in the right lower lung has slightly increased in size by 1 or 2 mm, for example of the right paraspinal lesion measures 13 mm, previously 10 mm (series 301 image 39). Pleural space: No pneumothorax. No significant effusion. Heart: Normal heart size without pericardial effusion. Bones/joints: Multiple right-sided rib fractures demonstrate increased sclerosis, possibly related to treatment or healing process. Lytic lesion in the right T2 vertebral body with surrounding sclerotic changes. Possibly an underlying soft tissue mass which measures 18 mm, previously 13 mm. Soft tissues: Right paratracheal soft tissue nodule versus lymph node has enlarged up to 13 mm, previously 10 mm. Small hiatal hernia. Vasculature: Unremarkable. No thoracic aortic aneurysm. Lymph nodes: No enlarged lymph nodes. IMPRESSION: 1. Nodule seen in the right lower lobe appear to be enlarging mildly impaired to 04/12/18. Additionally the right paratracheal mediastinal nodule versus lymph node is also slightly enlarged. This may represent evidence of disease progression. 2. Enlarged lytic soft tissue mass at the right aspect of T2. No definite pathologic fracture of the spine. 3. redemonstration of right-sided rib fractures which appear to be healing or remodeling from treatment. 4. Mild hiatal hernia. <MYCVCSECTION> Critical Value Communications 06/11/18 23:08 Call Doctor Regarding Above results, called Dr. Purcell on 06/11 23:08 (-04:00)
--- NOTE | 2018-06-11 23:10 | ED ---
General Adult HPI - General Chief complaint: Shortness of Breath Stated complaint: GUANACO Time Seen by Provider: 06/11/18 20:18 Source: patient Mode of arrival: wheelchair Limitations: physical limitation - History of Present Illness Initial comments: 73-year-old male with a history of metastatic lung cancer presenting with worsening right-sided chest and abdominal pain. Patient states he has had pain chronically like this for some time but it has never been persistent to the point that he was unable to control it with the regimen given to him by Dr. Chris escobedo. He states he took 2 of his Percocet at home and has been using his fentanyl patch has not had any relief. His and him state they did have a prolonged car ride where he was turning and twisting a lot in the past that is aggravated that area of his body. The patient is on A[place]quist Casandra fibrillation is been on it since 2016. He denies ever feeling the medication he denies any history of DVT PE. He denies cough, fever or chills, chest pain. He does wear 3 L of oxygen at home. He also has a history of COPD. - Related Data Home Medications Medication Instructions Recorded Confirmed Pantoprazole Sodium [Protonix] 40 mg PO HS 12/15/15 06/11/18 amLODIPine BESYLATE/BENAZEPRIL 1 cap PO QAM 12/15/15 06/11/18 [Lotrel 5-10 MG] Cholecalciferol [Vitamin D3] 5,000 unit PO HS 02/20/16 06/11/18 Cinnamon Bark [Cinnamon] 1,000 mg PO DAILY 02/20/16 06/11/18 Metoprolol Tartrate [Lopressor] 25 mg PO DAILY 04/25/16 06/11/18 Mometasone/Formoterol [Dulera 200 2 puff INHALATION RT-BID 06/16/17 06/11/18 Mcg/5 Mcg Inhaler] Tiotropium 18 Mcg/Puff [Spiriva] 1 cap INHALATION RT-DAILY 06/16/17 06/11/18 hydrOXYzine HCL 25 - 50 mg PO DAILY PRN 06/16/17 06/11/18 rOPINIRole HCL [Requip] 1 mg PO BID@1400,2100 06/16/17 06/11/18 Thiamine [Vitamin B-1] 250 mg PO DAILY 07/07/17 06/11/18 ALPRAZolam [Xanax] 0.5 mg PO DAILY PRN 12/29/17 06/11/18 Gabapentin [Neurontin] 200 mg PO HS 12/29/17 06/11/18 L.acidoph,Paracasei, B.lactis 1 cap PO DAILY 12/29/17 06/11/18 [Probiotic] Prochlorperazine [Compazine] 10 mg PO Q6H PRN 12/29/17 06/11/18 Albuterol Nebulized [Ventolin 2.5 mg INHALATION RT-QID PRN 04/12/18 06/11/18 Nebulized] Ipratropium Howard [Atrovent Hfa] 1 puff INHALATION RT-DAILY 06/11/18 06/11/18 Lidocaine 5% Patch [Lidoderm 5% 1 patch TRANSDERM DAILY PRN 06/11/18 06/11/18 Patch] fentaNYL 25MCG/HR PATCH [Duragesic 25 mcg TRANSDERM Q72H 06/11/18 06/11/18 25MCG/HR] oxyCODONE-APAP 10-325MG [Percocet 1 tab PO Q4HR PRN 06/11/18 06/11/18 10-325 mg] predniSONE 5 mg PO BID 06/11/18 06/11/18 Previous Rx's Medication Instructions Recorded Apixaban [Eliquis] 5 mg PO BID #60 tab 03/06/16 Citalopram Hydrobromide [CeleXA] 20 mg PO QAM tab 03/06/16 Tamsulosin [Flomax] 0.4 mg PO QAM cap.er.24h 03/06/16 Loratadine [Claritin] 5 mg PO Q12HR tab 04/27/16 Allergies Allergy/AdvReac Type Severity Reaction Status Date / Time cat dander Allergy Rash/Hives Verified 06/11/18 20:57 Iodinated Contrast- Oral and Allergy Unknown Verified 06/11/18 20:57 IV Dye iodine Allergy Nausea Verified 06/11/18 20:57 Review of Systems ROS Statement: Those systems with pertinent positive or pertinent negative responses have been documented in the HPI. Review of Systems Constitutional: Denies fever, chills Eyes: Denies change in vision, Denies pain Ears, nose, mouth, throat: Denies headaches, Denies sore throat Cardiovascular: Positive chest pain. Denies palpitations Respiratory: Denies shortness of breath, Denies cough Gastrointestinal: Positive abdominal pain. Denies nausea, vomiting, diarrhea. Genitourinary: Denies hematuria, Denies infections Musculoskeletal: Denies pain, Denies swelling Integumentary: Denies rash Neurological: Denies headache, focal weakness, focal numbness Psychiatric: Denies anxiety, Denies depression Hematologic/Lymphatic: Denies easy bleeding or bruising ROS Other: All systems not noted in ROS Statement are negative. Past Medical History Past Medical History: Coronary Artery Disease (CAD), Cancer, COPD, GERD/Reflux, Hyperlipidemia, Hypertension, Prostate Disorder, Thyroid Disorder Additional Past Medical History / Comment(s): rt LOBECTOMY FOR LUNG CANCER,pt stated he had 9 weeks of chemo "that did'nt work" then was placed on immunotherapy"has been on immunotherapy 11 weeks" , restless legs syndrome History of Any Multi-Drug Resistant Organisms: None Reported Past Surgical History: Adenoidectomy, Appendectomy, Cholecystectomy, Heart Catheterization With Stent, Tonsillectomy Additional Past Surgical History / Comment(s): bilateral knee surgery(on cartilage), CARDIAC STENT- -2007, lung bx,02-27-16 ROBOTIC ASSISTED RT THOROSCOPY/RT UPPER LOBECTOMY /LYMPH NODE DISECTION. Past Anesthesia/Blood Transfusion Reactions: No Reported Reaction Date of Last Stent Placement:: 2007 Past Psychological History: Anxiety, Depression Smoking Status: Former smoker Past Alcohol Use History: Daily Past Drug Use History: None Reported - Past Family History Mother Family Medical History: Cancer Additional Family Medical History / Comment(s): breast and lung cancer Father Family Medical History: Diabetes Mellitus, Myocardial Infarction ([place]) Additional Family Medical History / Comment(s): mi x2 with 2nd one General Exam - General Exam Comments Initial Comments: General: Awake, alert, No acute Distress HENT: Normocephalic. Atraumatic Eyes: PERRL. EOMI. No scleral icterus. No injected conjunctiva Neck: Full ROM Chest/Lungs: Clear to auscultation bilaterally. Tachypnea. right sided inferior chest wall tenderness to palpation Cardiac: Regular rate, rhythm. No murmurs or rubs Abdomen/GI: Soft, RUQ tenderness, nondistended. No rebound, guarding, or rigidity. Musculoskeletal: Full ROM Skin: Warm, dry, intact Neurologic: A/Ox3, no weakness, no sensory deficit, no abnormal gait, no coordination deficit Limitations: physical limitation Course Vital Signs 06/11/18 20:15 Temperature 98.3 F Pulse Rate 101 H Respiratory 32 H Rate Blood Pressure 145/106 O2 Sat by Pulse 83 L Oximetry Medical Decision Making - Medical Decision Making 73-year-old male presenting with right-sided chest pain. Initial exam the patient is awake alert he was initially hypoxic and tachypneic in triage but he was not wearing his 3 L of home O2. The patient's symptoms improved after being put on oxygen. His EKG showed sinus tachycardia. Patient's laboratory workup revealed a leukocytosis and lactic acidosis. Patient was given 1 L of IV fl uids. CT of his neck was done as the patient states he was having some dysphagia. CT of his chest abdomen pelvis were done without contrast as the patient has an ALLERGY. There was a new T2 bone metastases seen. His known lung nodules had also increased in size. No infectious process was found in the patient's exam. His symptoms improved while in the department. His right- sided pain so persistent. I spoke with Dr. Marcial who recommended the patient following up in the morning with Dr. Roldan or Dede he has had this pain in the past and has pain medications at home. I discussed this at length with family who are comfortable with outpatient follow-up. The patient's lactic acid was repeated and he was given a additional dose of pain medication while in the department. His conversational dyspnea and tachypnea headache completely resolved. He was no longer hypoxic nor is he tachycardic. His lactate decreased to 1.No further emergent workup indicated. The patient was given return to ED instructions. They were instructed to follow up with their primary care provider. Stable for discharge at this time. - Lab Data Result diagrams: 06/11/18 20:25 06/11/18 20:25 Lab Results 06/11/18 06/11/18 06/11/18 Range/Units 20:25 20:25 20:25 WBC 11.3 H (3.8-10.6) k/uL RBC 4.50 (4.30-5.90) m/uL Hgb 14.7 (13.0-17.5) gm/dL Hct 44.6 (39.0-53.0) % MCV 99.1 (80.0-100.0) fL MCH 32.7 (25.0-35.0) pg MCHC 33.0 (31.0-37.0) g/dL RDW 13.5 (11.5-15.5) % Plt Count 214 (150-450) k/uL Neutrophils % 78 % Lymphocytes % 10 % Monocytes % 7 % Eosinophils % 1 % Basophils % 0 % Neutrophils # 8.9 H (1.3-7.7) k/uL Lymphocytes # 1.2 (1.0-4.8) k/uL Monocytes # 0.8 (0-1.0) k/uL Eosinophils # 0.1 (0-0.7) k/uL Basophils # 0.0 (0-0.2) k/uL VBG pH (7.31-7.41) VBG pCO2 (37-51) mmHg VBG HCO3 (24-28) mmol/L Sodium 137 (137-145) mmol/L Potassium 4.7 (3.5-5.1) mmol/L Chloride 103 (98-107) mmol/L Carbon Dioxide 22 (22-30) mmol/L Anion Gap 12 mmol/L BUN 18 (9-20) mg/dL Creatinine 1.00 (0.66-1.25) mg/dL Est GFR (CKD-EPI)AfAm 87 (>60 ml/min/1.73 sqM) Est GFR (CKD-EPI)NonAf 75 (>60 ml/min/1.73 sqM) Glucose 100 H (74-99) mg/dL Lactic Ac Sepsis Rflx Plasma Lactic Acid Alexis (0.7-2.0) mmol/L Calcium 9.5 (8.4-10.2) mg/dL Total Bilirubin 0.5 (0.2-1.3) mg/dL Conjugated Bilirubin 0.0 (0.0-0.3) mg/dL Unconjugated Bilirubin 0.3 (0.0-1.1) mg/dL Delta Bilirubin 0.2 (0.0-0.2) mg/dL AST 36 (17-59) U/L ALT 57 (21-72) U/L Alkaline Phosphatase 92 (38-126) U/L Troponin I <0.012 (0.000-0.034) ng/mL Total Protein 6.5 (6.3-8.2) g/dL Albumin 4.0 (3.5-5.0) g/dL Lipase 109 (23-300) U/L Urine Color Urine Appearance (Clear) Urine pH (5.0-8.0) Ur Specific [place] (1.001-1.035) Urine Protein (Negative) Urine Glucose (UA) (Negative) Urine Ketones (Negative) Urine Blood (Negative) Urine Nitrite (Negative) Urine Bilirubin (Negative) Urine Urobilinogen (<2.0) mg/dL Ur Leukocyte Esterase (Negative) Influenza Type A RNA (Not Detectd) Influenza Type B (PCR) (Not Detectd) 06/11/18 06/11/18 06/11/18 Range/Units 20:25 21:07 21:12 WBC (3.8-10.6) k/uL RBC (4.30-5.90) m/uL Hgb (13.0-17.5) gm/dL Hct (39.0-53.0) % MCV (80.0-100.0) fL MCH (25.0-35.0) pg MCHC (31.0-37.0) g/dL RDW (11.5-15.5) % Plt Count (150-450) k/uL Neutrophils % % Lymphocytes % % Monocytes % % Eosinophils % % Basophils % % Neutrophils # (1.3-7.7) k/uL Lymphocytes # (1.0-4.8) k/uL Monocytes # (0-1.0) k/uL Eosinophils # (0-0.7) k/uL Basophils # (0-0.2) k/uL VBG pH 7.44 H (7.31-7.41) VBG pCO2 36 L (37-51) mmHg VBG HCO3 24 (24-28) mmol/L Sodium (137-145) mmol/L Potassium (3.5-5.1) mmol/L Chloride (98-107) mmol/L Carbon Dioxide (22-30) mmol/L Anion Gap mmol/L BUN (9-20) mg/dL Creatinine (0.66-1.25) mg/dL Est GFR (CKD-EPI)AfAm (>60 ml/min/1.73 sqM) Est GFR (CKD-EPI)NonAf (>60 ml/min/1.73 sqM) Glucose (74-99) mg/dL Lactic Ac Sepsis Rflx Y Plasma Lactic Acid Alexis 2.6 H* (0.7-2.0) mmol/L Calcium (8.4-10.2) mg/dL Total Bilirubin (0.2-1.3) mg/dL Conjugated Bilirubin (0.0-0.3) mg/dL Unconjugated Bilirubin (0.0-1.1) mg/dL Delta Bilirubin (0.0-0.2) mg/dL AST (17-59) U/L ALT (21-72) U/L Alkaline Phosphatase (38-126) U/L Troponin I (0.000-0.034) ng/mL Total Protein (6.3-8.2) g/dL Albumin (3.5-5.0) g/dL Lipase (23-300) U/L Urine Color Urine Appearance (Clear) Urine pH (5.0-8.0) Ur Specific [place] (1.001-1.035) Urine Protein (Negative) Urine Glucose (UA) (Negative) Urine Ketones (Negative) Urine Blood (Negative) Urine Nitrite (Negative) Urine Bilirubin (Negative) Urine Urobilinogen (<2.0) mg/dL Ur Leukocyte Esterase (Negative) Influenza Type A RNA (Not Detectd) Influenza Type B (PCR) (Not Detectd) 06/11/18 06/11/18 Range/Units 21:52 22:40 WBC (3.8-10.6) k/uL RBC (4.30-5.90) m/uL Hgb (13.0-17.5) gm/dL Hct (39.0-53.0) % MCV (80.0-100.0) fL MCH (25.0-35.0) pg MCHC (31.0-37.0) g/dL RDW (11.5-15.5) % Plt Count (150-450) k/uL Neutrophils % % Lymphocytes % % Monocytes % % Eosinophils % % Basophils % % Neutrophils # (1.3-7.7) k/uL Lymphocytes # (1.0-4.8) k/uL Monocytes # (0-1.0) k/uL Eosinophils # (0-0.7) k/uL Basophils # (0-0.2) k/uL VBG pH (7.31-7.41) VBG pCO2 (37-51) mmHg VBG HCO3 (24-28) mmol/L Sodium (137-145) mmol/L Potassium (3.5-5.1) mmol/L Chloride (98-107) mmol/L Carbon Dioxide (22-30) mmol/L Anion Gap mmol/L BUN (9-20) mg/dL Creatinine (0.66-1.25) mg/dL Est GFR (CKD-EPI)AfAm (>60 ml/min/1.73 sqM) Est GFR (CKD-EPI)NonAf (>60 ml/min/1.73 sqM) Glucose (74-99) mg/dL Lactic Ac Sepsis Rflx Plasma Lactic Acid Alexis (0.7-2.0) mmol/L Calcium (8.4-10.2) mg/dL Total Bilirubin (0.2-1.3) mg/dL Conjugated Bilirubin (0.0-0.3) mg/dL Unconjugated Bilirubin (0.0-1.1) mg/dL Delta Bilirubin (0.0-0.2) mg/dL AST (17-59) U/L ALT (21-72) U/L Alkaline Phosphatase (38-126) U/L Troponin I (0.000-0.034) ng/mL Total Protein (6.3-8.2) g/dL Albumin (3.5-5.0) g/dL Lipase (23-300) U/L Urine Color Light Yellow Urine Appearance Clear (Clear) Urine pH 5.5 (5.0-8.0) Ur Specific [place] 1.005 (1.001-1.035) Urine Protein Negative (Negative) Urine Glucose (UA) Negative (Negative) Urine Ketones Negative (Negative) Urine Blood Negative (Negative) Urine Nitrite Negative (Negative) Urine Bilirubin Negative (Negative) Urine Urobilinogen <2.0 (<2.0) mg/dL Ur Leukocyte Esterase Negative (Negative) Influenza Type A RNA Not Detected (Not Detectd) Influenza Type B (PCR) Not Detected (Not Detectd) Disposition Clinical Impression: Lung cancer metastatic to bone, Chronic pain Disposition: HOME SELF-CARE Condition: Good Instructions (If sedation given, give patient instructions): Chest Pain (ED), Chest Wall Pain (ED), Shortness of Breath (ED) Additional Instructions: Call Dr. Roldan tomorrow as well as Dr. Aguayo for follow up. Return to this department if symptoms worsen. Is patient prescribed a controlled substance at d/c from ED?: No Referrals: Cooper Shane MD [Primary Care Provider] - 1-2 days Qiana Roldan MD [STAFF PHYSICIAN] - 1-2 days
[2018-06-11 23:19] LABS: Appearance,Urine Clear (Clear); Bilirubin,Urine Negative (Negative); Blood,Urine Negative (Negative); Color,Urine Light Yellow; Glucose,Urine (UA) Negative (Negative); Ketones,Urine Negative (Negative); Leukocyte Esterase,Urine Negative (Negative); Nitrite,Urine Negative (Negative); PH, Urine 5.5 (5.0-8.0); Protein,Urine Negative (Negative); Specific Gravity,Urine 1.005 (1.001-1.035); Urobilinogen,Urine <2.0 mg/dL (<2.0)
[2018-06-12] MEDS ORDERED: MORPHINE SULFATE 4 MG/ML SYRINGE IVP STA (00:08)
[2018-06-12] MEDS ORDERED: SODIUM CHLORIDE 0.9% 1,000 ML IV SCH (00:15)
[2018-06-12] MEDS ORDERED: oxyCODONE ER 10 MG TAB.ER.12H PO STA (00:28)
== END 2018-06-12 01:45 | disposition home or self-care (01) ==
LOC: EC 20:09
DX: C79.51 Secondary malignant neoplasm of bone (principal); G89.29 Other chronic pain; R00.0 Tachycardia, unspecified; D72.829 Elevated white blood cell count, unspecified; E87.2 Acidosis; R13.10 Dysphagia, unspecified; R91.8 Other nonspecific abnormal finding of lung field; R06.82 Tachypnea, not elsewhere classified; R07.9 Chest pain, unspecified; R10.9 Unspecified abdominal pain; J44.9 Chronic obstructive pulmonary disease, unspecified; I10 Essential (primary) hypertension; K21.9 Gastro-esophageal reflux disease without esophagitis; G25.81 Restless legs syndrome; I48.91 Unspecified atrial fibrillation; I25.10 Atherosclerotic heart disease of native coronary artery without angina pectoris; Z87.891 Personal history of nicotine dependence; Z91.041 Radiographic dye allergy status; Z91.048 Other nonmedicinal substance allergy status; Z79.01 Long term (current) use of anticoagulants; Z79.51 Long term (current) use of inhaled steroids; Z79.52 Long term (current) use of systemic steroids; Z79.891 Long term (current) use of opiate analgesic; Z79.899 Other long term (current) drug therapy; Z92.21 Personal history of antineoplastic chemotherapy; Z92.25 Personal history of immunosuppression therapy; Z95.5 Presence of coronary angioplasty implant and graft; Z85.118 Personal history of other malignant neoplasm of bronchus and lung; Z90.2 Acquired absence of lung [part of]; Z90.89 Acquired absence of other organs; Z99.81 Dependence on supplemental oxygen; Z80.1 Family history of malignant neoplasm of trachea, bronchus and lung
CPT/HCPCS: 36415 ×2; 93005; 80048; 80076; 82803; 83605 ×2; 83690; 84484; 85025; 81003; 87502; 71101; 70490; 71250; 74150; 99285; 96374; 96361; J2270

== ENCOUNTER 2018-06-17 13:11 | Inpatient (IN) | payer MEDICARE ==
[2018-06-17] MEDS ORDERED: IPRATROPIUM-ALBUTEROL 3 ML NEB INHALATION STA (13:28)
[2018-06-17] MEDS ORDERED: methylPREDNISolone SOD SUCCI 125 MG/2 ML VIAL IV STA (13:39)
--- NOTE | 2018-06-17 13:41 | ED ---
General Adult HPI - General Chief complaint: Shortness of Breath Stated complaint: GUANACO Time Seen by Provider: 06/17/18 13:15 Source: family, RN notes reviewed Mode of arrival: wheelchair Limitations: no limitations - History of Present Illness Initial comments: This is a 73-year-old male who presents emergency Department complaining of difficulty breathing. Patient states she has a history of COPD he has a couple of stents in his heart. Patient states she also had lung cancer a lobectomy and has metastatic disease to his bones. Patient states he got up today and he felt a little short of breath and it has gotten progressively worse. Patient does have oxygen at home but has not helped. Patient also took a treatment at home did not help as well. Patient denies any fever or chills or increased cough. Patient denies any abdominal pain. Patient denies any chest pain. Patient denies any palpitations. Patient denies any nausea vomiting diarrhea. Patient denies any lightheadedness dizziness or near syncopal episode. Patient denies any swelling to the legs or calf tenderness - Related Data Home Medications Medication Instructions Recorded Confirmed Pantoprazole Sodium [Protonix] 40 mg PO HS 12/15/15 06/17/18 amLODIPine BESYLATE/BENAZEPRIL 1 cap PO QAM 12/15/15 06/17/18 [Lotrel 5-10 MG] Cholecalciferol [Vitamin D3] 5,000 unit PO HS 02/20/16 06/17/18 Cinnamon Bark [Cinnamon] 1,000 mg PO DAILY 02/20/16 06/17/18 Metoprolol Tartrate [Lopressor] 25 mg PO DAILY 04/25/16 06/17/18 Mometasone/Formoterol [Dulera 200 2 puff INHALATION RT-BID 06/16/17 06/17/18 Mcg/5 Mcg Inhaler] Tiotropium 18 Mcg/Puff [Spiriva] 1 cap INHALATION RT-DAILY 06/16/17 06/17/18 hydrOXYzine HCL 25 - 50 mg PO DAILY PRN 06/16/17 06/17/18 rOPINIRole HCL [Requip] 1 mg PO BID@1400,2100 06/16/17 06/17/18 Thiamine [Vitamin B-1] 250 mg PO DAILY 07/07/17 06/17/18 ALPRAZolam [Xanax] 0.5 mg PO DAILY PRN 12/29/17 06/17/18 Gabapentin [Neurontin] 200 mg PO HS 12/29/17 06/17/18 L.acidoph,Paracasei, B.lactis 1 cap PO DAILY 12/29/17 06/17/18 [Probiotic] Prochlorperazine [Compazine] 10 mg PO Q6H PRN 12/29/17 06/17/18 Albuterol Nebulized [Ventolin 2.5 mg INHALATION RT-QID PRN 04/12/18 06/17/18 Nebulized] Ipratropium Sullivan [Atrovent Hfa] 1 puff INHALATION RT-DAILY 06/11/18 06/17/18 Lidocaine 5% Patch [Lidoderm 5% 1 patch TRANSDERM DAILY PRN 06/11/18 06/17/18 Patch] predniSONE 5 mg PO BID 06/11/18 06/17/18 HYDROmorphone [Dilaudid] 4 mg PO Q4HR PRN 06/17/18 06/17/18 fentaNYL 50MCG/HR PATCH [Duragesic 50 mcg TRANSDERM Q72H 06/17/18 06/17/18 50MCG/HR] Previous Rx's Medication Instructions Recorded Apixaban [Eliquis] 5 mg PO BID #60 tab 03/06/16 Citalopram Hydrobromide [CeleXA] 20 mg PO QAM tab 03/06/16 Tamsulosin [Flomax] 0.4 mg PO QAM cap.er.24h 03/06/16 Loratadine [Claritin] 5 mg PO Q12HR tab 04/27/16 Allergies Allergy/AdvReac Type Severity Reaction Status Date / Time cat dander Allergy Rash/Hives Verified 06/17/18 13:43 Iodinated Contrast- Oral and Allergy Unknown Verified 06/17/18 13:43 IV Dye iodine Allergy Nausea Verified 06/17/18 13:43 Review of Systems ROS Statement: Those systems with pertinent positive or pertinent negative responses have been documented in the HPI. ROS Other: All systems not noted in ROS Statement are negative. Past Medical History Past Medical History: Coronary Artery Disease (CAD), Cancer, COPD, GERD/Reflux, Hyperlipidemia, Hypertension, Prostate Disorder, Thyroid Disorder Additional Past Medical History / Comment(s): rt LOBECTOMY FOR LUNG CANCER,pt stated he had 9 weeks of chemo "that did'nt work" then was placed on immunotherapy"has been on immunotherapy 11 weeks" , restless legs syndrome History of Any Multi-Drug Resistant Organisms: None Reported Past Surgical History: Adenoidectomy, Appendectomy, Cholecystectomy, Heart Catheterization With Stent, Tonsillectomy Additional Past Surgical History / Comment(s): bilateral knee surgery(on cartilage), CARDIAC STENT- , lung bx,02-27-16 ROBOTIC ASSISTED RT THOROSCOPY/RT UPPER LOBECTOMY /LYMPH NODE DISECTION. Past Anesthesia/Blood Transfusion Reactions: No Reported Reaction Date of Last Stent Placement:: 2007 Past Psychological History: Anxiety, Depression Smoking Status: Former smoker Past Alcohol Use History: Daily Past Drug Use History: None Reported - Past Family History Mother Family Medical History: Cancer Additional Family Medical History / Comment(s): breast and lung cancer Father Family Medical History: Diabetes Mellitus, Myocardial Infarction ([place]) Additional Family Medical History / Comment(s): mi x2 with 2nd one General Exam - General Exam Comments Initial Comments: GENERAL: Patient is well-developed and well-nourished. Patient is nontoxic and well- hydrated and is in mild distress. ENT: Neck is soft and supple. No significant lymphadenopathy is noted. Oropharynx is clear. Moist mucous membranes. Neck has full range of motion without eliciting any pain. EYES: The sclera were anicteric and conjunctiva were pink and moist. Extraocular movements were intact and pupils were equal round and reactive to light. Eyelids were unremarkable. PULMONARY: Patient has expiratory wheezing diffusely CARDIOVASCULAR: Patient has tachycardia at about 100 beats a minute ABDOMEN: Soft and nontender with normal bowel sounds. No palpable organomegaly was noted. There is no palpable pulsatile mass. SKIN: Skin is clear with no lesions or rashes and otherwise unremarkable. NEUROLOGIC: Patient is alert and oriented x3. Cranial nerves II through XII are grossly intact. Motor and sensory are also intact. Normal speech, volume and content. Symmetrical smile. MUSCULOSKELETAL: Normal extremities with adequate strength and full range of motion. No lower extremity swelling or edema. No calf tenderness. LYMPHATICS: No significant lymphadenopathy is noted PSYCHIATRIC: Normal psychiatric evaluation. Limitations: no limitations Course Vital Signs 06/17/18 06/17/18 06/17/18 13:30 13:32 13:41 Temperature 98.4 F Pulse Rate 102 H 103 H 104 H Respiratory 16 Rate Blood Pressure 136/80 O2 Sat by Pulse 90 L Oximetry 06/17/18 13:53 Temperature Pulse Rate 108 H Respiratory Rate Blood Pressure O2 Sat by Pulse Oximetry Medical Decision Making - Medical Decision Making Patient is on eliquis. EKG shows sinus tachycardia at 101 bpm SD interval 252 QRS is 78 QT interval 324 QTC is 420. Patient's EKG shows no ST segment elevation or depression or T wave abnormalities are noted. The area of chest x-ray shows left lower lobe pneumonia. I started the patient on Zosyn. Patient received 3 breathing treatments in the emergency department and improved a little but still was quite wheezy. Patient also received steroids. I spoke with some physicians agreed to admit the patient admitted the patient I wrote admitting orders. I consulted Dr. Roldan and oncology. - Lab Data Result diagrams: 06/17/18 13:59 06/17/18 13:59 Lab Results 06/17/18 06/17/18 06/17/18 Range/Units 13:59 13:59 13:59 WBC 17.5 H (3.8-10.6) k/uL RBC 3.95 L (4.30-5.90) m/uL Hgb 12.7 L (13.0-17.5) gm/dL Hct 39.3 (39.0-53.0) % MCV 99.6 (80.0-100.0) fL MCH 32.3 (25.0-35.0) pg MCHC 32.4 (31.0-37.0) g/dL RDW 13.4 (11.5-15.5) % Plt Count 233 (150-450) k/uL Neutrophils % 87 % Lymphocytes % 4 % Monocytes % 6 % Eosinophils % 0 % Basophils % 1 % Neutrophils # 15.2 H (1.3-7.7) k/uL Lymphocytes # 0.7 L (1.0-4.8) k/uL Monocytes # 1.1 H (0-1.0) k/uL Eosinophils # 0.0 (0-0.7) k/uL Basophils # 0.1 (0-0.2) k/uL PT (9.0-12.0) sec INR (<1.2) APTT (22.0-30.0) sec Sodium 130 L (137-145) mmol/L Potassium 4.4 (3.5-5.1) mmol/L Chloride 94 L (98-107) mmol/L Carbon Dioxide 29 (22-30) mmol/L Anion Gap 7 mmol/L BUN 15 (9-20) mg/dL Creatinine 0.72 (0.66-1.25) mg/dL Est GFR (CKD-EPI)AfAm >90 (>60 ml/min/1.73 sqM) Est GFR (CKD-EPI)NonAf >90 (>60 ml/min/1.73 sqM) Glucose 143 H (74-99) mg/dL Plasma Lactic Acid Alexis 1.3 (0.7-2.0) mmol/L Calcium 9.1 (8.4-10.2) mg/dL Magnesium 1.8 (1.6-2.3) mg/dL Total Bilirubin 1.3 (0.2-1.3) mg/dL AST 36 (17-59) U/L ALT 50 (21-72) U/L Alkaline Phosphatase 95 (38-126) U/L Troponin I (0.000-0.034) ng/mL Total Protein 5.9 L (6.3-8.2) g/dL Albumin 3.2 L (3.5-5.0) g/dL 06/17/18 06/17/18 Range/Units 13:59 13:59 WBC (3.8-10.6) k/uL RBC (4.30-5.90) m/uL Hgb (13.0-17.5) gm/dL Hct (39.0-53.0) % MCV (80.0-100.0) fL MCH (25.0-35.0) pg MCHC (31.0-37.0) g/dL RDW (11.5-15.5) % Plt Count (150-450) k/uL Neutrophils % % Lymphocytes % % Monocytes % % Eosinophils % % Basophils % % Neutrophils # (1.3-7.7) k/uL Lymphocytes # (1.0-4.8) k/uL Monocytes # (0-1.0) k/uL Eosinophils # (0-0.7) k/uL Basophils # (0-0.2) k/uL PT 10.7 (9.0-12.0) sec INR 1.0 (<1.2) APTT 23.3 (22.0-30.0) sec Sodium (137-145) mmol/L Potassium (3.5-5.1) mmol/L Chloride (98-107) mmol/L Carbon Dioxide (22-30) mmol/L Anion Gap mmol/L BUN (9-20) mg/dL Creatinine (0.66-1.25) mg/dL Est GFR (CKD-EPI)AfAm (>60 ml/min/1.73 sqM) Est GFR (CKD-EPI)NonAf (>60 ml/min/1.73 sqM) Glucose (74-99) mg/dL Plasma Lactic Acid Alexis (0.7-2.0) mmol/L Calcium (8.4-10.2) mg/dL Magnesium (1.6-2.3) mg/dL Total Bilirubin (0.2-1.3) mg/dL AST (17-59) U/L ALT (21-72) U/L Alkaline Phosphatase (38-126) U/L Troponin I 0.029 (0.000-0.034) ng/mL Total Protein (6.3-8.2) g/dL Albumin (3.5-5.0) g/dL Critical Care Time Critical Care Time: Yes Total Critical Care Time: 35 Disposition Clinical Impression: COPD with acute exacerbation, Pneumonia, History of lung cancer Disposition: ADMITTED IP TO THIS HOSP Referrals: Cooper Shane MD [Primary Care Provider] - 1-2 days Time of Disposition: 15:16
[2018-06-17] MEDS ORDERED: ALBUTEROL NEBULIZED 2.5 MG/3 ML INHALATION STA (13:48)
[2018-06-17 14:28] LABS: ALT 50 U/L (21-72); AST 36 U/L (17-59); Albumin 3.2 g/dL (3.5-5.0); Alkaline Phosphatase 95 U/L (38-126); Anion Gap 7 mmol/L; Blood Urea Nitrogen 15 mg/dL (9-20); Calcium 9.1 mg/dL (8.4-10.2); Carbon Dioxide 29 mmol/L (22-30); Chloride 94 mmol/L (98-107); Glucose 143 mg/dL (74-99); Magnesium 1.8 mg/dL (1.6-2.3); Potassium 4.4 mmol/L (3.5-5.1); Sodium 130 mmol/L (137-145); Total Bilirubin 1.3 mg/dL (0.2-1.3); Total Protein 5.9 g/dL (6.3-8.2)
[2018-06-17 14:31] LABS: Partial Thromboplastin Time 23.3 sec (22.0-30.0); Prothrombin Time 10.7 sec (9.0-12.0)
[2018-06-17 14:39] LABS: Basophils # (A) 0.1 k/uL (0-0.2); Basophils % (A) 1 %; Eosinophils % (A) 0 %; HCT 39.3 % (39.0-53.0); HGB 12.7 gm/dL (13.0-17.5); Lymphocytes # (A) 0.7 k/uL (1.0-4.8); Lymphocytes % (A) 4 %; MCH 32.3 pg (25.0-35.0); MCHC 32.4 g/dL (31.0-37.0); MCV 99.6 fL (80.0-100.0); Mean Platelet Volume 7.5; Monocytes # (A) 1.1 k/uL (0-1.0); Monocytes % (A) 6 %; Neutrophils # (A) 15.2 k/uL (1.3-7.7); Neutrophils % (A) 87 %; Platelet Count 233 k/uL (150-450); RBC 3.95 m/uL (4.30-5.90); RDW 13.4 % (11.5-15.5); WBC 17.5 k/uL (3.8-10.6)
--- NOTE | 2018-06-17 14:45 | XR ---
EXAMINATION TYPE: XR chest 2V DATE OF EXAM: 06/17/2018 COMPARISON: 04/12/2018 HISTORY: Difficulty breathing TECHNIQUE: Frontal and lateral views of the chest are obtained. FINDINGS: There is coarse interstitial density throughout the lungs. There is elevated right diaphra gm. There is no heart failure. There are chest leads. Heart is enlarged. IMPRESSION: Pulmonary fibrosis. Chronic elevated right diaphragm could relate to some paralysis. No change compared to old exam.
[2018-06-17] MEDS ORDERED: PIPERACILLIN-TAZOBACTAM 3.375 GM in SODIUM CHLORIDE 0.9% 100 ML IVPB STA (15:06)
[2018-06-17] MEDS ORDERED: LEVOFLOXACIN 750MG-D5W PMX 750 MG in DEXTROSE/WATER 1 150ML.BAG IVPB STA (15:24)
[2018-06-17] MEDS ORDERED: PNEUMONIA PROTOCOL UTILIZED 1 EACH MISC PO PRN (15:24)
[2018-06-17] MEDS ORDERED: IPRATROPIUM-ALBUTEROL 3 ML NEB INHALATION PRN (15:24)
[2018-06-17] MEDS ORDERED: NALOXONE 0.4 MG/ML 1 ML VIAL IV PRN (17:58)
[2018-06-17] MEDS ORDERED: ONDANSETRON 4 MG/2 ML VIAL IVP PRN (17:58)
[2018-06-17] MEDS ORDERED: HYDROcodone/APAP 5-325MG 1 EACH TAB PO PRN (17:58)
--- NOTE | 2018-06-17 18:13 | P.HPIM ---
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 Apparently the patient has been having increasing with breathing the last 2 days, and has been coughing that's been intermittently productive for the last week, also reports some pleuritic chest discomfort on the right side and has had nosebleeds over the last 2 days. He also complains of increased chest congestion and difficulty clearing his sputum and secretions, he reports subjective fevers chills night sweats. The patient's reports increasing oxygen to 4.5 L with no significant improvement, she also reports that his oxygen saturations on home oximetry was down in the 60s on his baseline oxygenation of 3.5L. Appears the patient has developed a polymyositis related to his chemotherapy/cancer and is currently on chronic steroid therapy with prednisone 5 mg by mouth twice a day Patient is followed by Dr. Crystal and Dr. Machado, reports that the patient was scheduled to have radiation therapy on Tuesday. Review of recent imaging a C T of the chest abdomen indicates a large lytic soft tissue mass in the right aspect of T2 indicating metastasis, progression of right paratracheal mediastinal LAD In the ER the patient had a comprehensive workup EKG showed sinus tachycardia, without any signs of acute ischemia, and WBC count was 17.5, serum potassium 4.4, serum sodium 130. Chest x-ray was consistent with pulmonary fibrosis, chronic elevated right diaphragm, the patient was given 2 breathing treatments a loading dose of steroids and started on IV antibiotics with Zosyn and Levaquin, placed on BiPAP and recommended for admission Review of Systems Pertinent positives per HPI all of system otherwise negative Past Medical History Past Medical History: Coronary Artery Disease (CAD), Cancer, COPD, GERD/Reflux, Hyperlipidemia, Hypertension, Prostate Disorder, Thyroid Disorder Additional Past Medical History / Comment(s): rt LOBECTOMY FOR LUNG CANCER,pt stated he had 9 weeks of chemo "that did'nt work" then was placed on immunotherapy"has been on immunotherapy 11 weeks" , restless legs syndrome History of Any Multi-Drug Resistant Organisms: None Reported Past Surgical History: Adenoidectomy, Appendectomy, Cholecystectomy, Heart Catheterization With Stent, Tonsillectomy Additional Past Surgical History / Comment(s): bilateral knee surgery(on cartilage), CARDIAC STENT- RCA-2007, lung bx,02-27-16 ROBOTIC ASSISTED RT THOROSCOPY/RT UPPER LOBECTOMY /LYMPH NODE DISECTION. Past Anesthesia/Blood Transfusion Reactions: No Reported Reaction Date of Last Stent Placement:: 2007 Smoking Status: Former smoker - Past Family History Mother Family Medical History: Cancer Additional Family Medical History / Comment(s): breast and lung cancer Father Family Medical History: Diabetes Mellitus, Myocardial Infarction ([place]) Additional Family Medical History / Comment(s): mi x2 with 2nd one Medications and Allergies Home Medications Medication Instructions Recorded Confirmed Type Pantoprazole Sodium [Protonix] 40 mg PO HS 12/15/15 06/17/18 History amLODIPine BESYLATE/BENAZEPRIL 1 cap PO QAM 12/15/15 06/17/18 History [Lotrel 5-10 MG] Cholecalciferol [Vitamin D3] 5,000 unit PO HS 02/20/16 06/17/18 History Cinnamon Bark [Cinnamon] 1,000 mg PO DAILY 02/20/16 06/17/18 History Apixaban [Eliquis] 5 mg PO BID #60 tab 03/06/16 06/17/18 Rx Citalopram Hydrobromide [CeleXA] 20 mg PO QAM tab 03/06/16 06/17/18 Rx Tamsulosin [Flomax] 0.4 mg PO QAM cap.er.24h 03/06/16 06/17/18 Rx Metoprolol Tartrate [Lopressor] 25 mg PO DAILY 04/25/16 06/17/18 History Loratadine [Claritin] 5 mg PO Q12HR tab 04/27/16 06/17/18 Rx Mometasone/Formoterol [Dulera 200 2 puff INHALATION RT-BID 06/16/17 06/17/18 History Mcg/5 Mcg Inhaler] Tiotropium 18 Mcg/Puff [Spiriva] 1 cap INHALATION RT-DAILY 06/16/17 06/17/18 History hydrOXYzine HCL 25 - 50 mg PO DAILY PRN 06/16/17 06/17/18 History rOPINIRole HCL [Requip] 1 mg PO BID@1400,2100 06/16/17 06/17/18 History Thiamine [Vitamin B-1] 250 mg PO DAILY 07/07/17 06/17/18 History ALPRAZolam [Xanax] 0.5 mg PO DAILY PRN 12/29/17 06/17/18 History Gabapentin [Neurontin] 200 mg PO HS 12/29/17 06/17/18 History L.acidoph,Paracasei, B.lactis 1 cap PO DAILY 12/29/17 06/17/18 History [Probiotic] Prochlorperazine [Compazine] 10 mg PO Q6H PRN 12/29/17 06/17/18 History Albuterol Nebulized [Ventolin 2.5 mg INHALATION RT-QID PRN 04/12/18 06/17/18 History Nebulized] Ipratropium [place] [Atrovent Hfa] 1 puff INHALATION RT-DAILY 06/11/18 06/17/18 History Lidocaine 5% Patch [Lidoderm 5% 1 patch TRANSDERM DAILY PRN 06/11/18 06/17/18 History Patch] predniSONE 5 mg PO BID 06/11/18 06/17/18 History HYDROmorphone [Dilaudid] 4 mg PO Q4HR PRN 06/17/18 06/17/18 History Mometasone/Formoterol [Dulera 200 2 puff INHALATION BID 06/17/18 06/17/18 History Mcg/5 Mcg Inhaler] Thiamine [Vitamin B-1] 250 mg PO DAILY 06/17/18 06/17/18 History fentaNYL 50MCG/HR PATCH [Duragesic 50 mcg TRANSDERM Q72H 06/17/18 06/17/18 History 50MCG/HR] Allergies Allergy/AdvReac Type Severity Reaction Status Date / Time cat dander Allergy Rash/Hives Verified 06/17/18 13:43 Iodinated Contrast- Oral and Allergy Unknown Verified 06/17/18 13:43 IV Dye iodine Allergy Nausea Verified 06/17/18 13:43 Physical Exam Vitals: Vital Signs Temp Pulse Pulse Resp BP BP Pulse Ox 06/17/18 17:15 99.3 F 88 18 115/67 98 06/17/18 16:40 97.9 F 06/17/18 16:30 89 28 H 125/74 97 06/17/18 16:00 96 27 H 129/74 98 06/17/18 15:41 98 06/17/18 15:30 96 26 H 141/77 96 06/17/18 15:00 97 139/81 94 L 06/17/18 14:00 105 H 136/80 94 L 06/17/18 13:53 108 H 06/17/18 13:41 104 H 06/17/18 13:32 103 H 06/17/18 13:30 98.4 F 102 H 16 136/80 90 L 06/17/18 13:20 86 L Intake and Output 06/17/18 06/17/18 06/17/18 06:59 14:59 22:59 Other: Weight 93.894 kg Constitutional: No acute distress, conversant, pleasant Eyes: Anicteric sclerae, moist conjunctiva, no lid-lag, PERRLA ENMT: NC/AT,Oropharynx clear, no erythema, exudates Neck:Supple, FROM, no masses, or JVD, No carotid bruits; No thyromegaly Lungs: Diminished in the bases with expiratory wheezes, unlabored currently on BiPAP Cardiovascular: Heart regular in rate and rhythm, No murmurs, gallops, or rubs no peripheral edema Abdominal: Soft Nontender, nom distended, no guarding, no rebound or rigidity, Normoactive bowel sounds No hepatomegaly, No splenomegaly, No palpable mass No abdominal wall hernia noted Skin: Normal temperature, tone, texture, turgor, No induration No subcutaneous nodules, No rash, lesions, No ulcers Extremities:No digital cyanosis No clubbing, Pedal pulses intact and symmetrical Radial pulses intact and symmetrical Normal gait and station, No calf tenderness Psychiatric: Alert and oriented to person, place and time, Appropriate affect Intact judgement Neuro: Muscles Strength 5/5 in all 4 extremities, Sensation to light touch grossly present throughout, Cranial nerves II-XII grossly intact. No focal sensory deficits Results CBC & Chem 7: 06/18/18 06:05 06/18/18 06:05 Labs: Abnormal Lab Results - Last 24 Hours (Table) 06/17/18 06/17/18 Range/Units 13:59 13:59 WBC 17.5 H (3.8-10.6) k/uL RBC 3.95 L (4.30-5.90) m/uL Hgb 12.7 L (13.0-17.5) gm/dL Neutrophils # 15.2 H (1.3-7.7) k/uL Lymphocytes # 0.7 L (1.0-4.8) k/uL Monocytes # 1.1 H (0-1.0) k/uL Sodium 130 L (137-145) mmol/L Chloride 94 L (98-107) mmol/L Glucose 143 H (74-99) mg/dL Total Protein 5.9 L (6.3-8.2) g/dL Albumin 3.2 L (3.5-5.0) g/dL Assessment and Plan (1) Acute on chronic respiratory failure with hypoxia Current Visit: Yes Status: Acute Code(s): J96.21 - ACUTE AND CHRONIC RESPIRATORY FAILURE WITH HYPOXIA SNOMED Code(s): 84939022 (2) COPD with acute exacerbation Current Visit: Yes Status: Acute Code(s): J44.1 - CHRONIC OBSTRUCTIVE PULMONARY DISEASE W (ACUTE) EXACERBATION SNOMED Code(s): 820938349 (3) Leukocytosis Current Visit: Yes Status: Acute Code(s): D72.829 - ELEVATED WHITE BLOOD CELL COUNT, UNSPECIFIED SNOMED Code(s): 151599726 (4) Hyponatremia Current Visit: Yes Status: Acute Code(s): E87.1 - HYPO-OSMOLALITY AND HYPONATREMIA SNOMED Code(s): 25434823 (5) Lung cancer metastatic to bone Current Visit: No Status: Acute Code(s): C34.90 - MALIGNANT NEOPLASM OF UNSP PART OF UNSP BRONCHUS OR LUNG; C79.51 - SECONDARY MALIGNANT NEOPLASM OF BONE SNOMED Code(s): 26197188 Plan: The patient is admitted anticipated greater than 2 midnight stay with acute on chronic respiratory failure with hypoxia secondary to acute COPD exacerbation superimposed on possible underlying pneumonia, continued on empiric IV antibiotics with Levaquin and Zosyn, systemic steroid treatment with IV Solu-Medrol, inhaled steroids with Pulmicort, scheduled and when necessary bronchodilator DuoNeb breathing treatments, the patient is noted to have a leukocytosis of 17 does take steroids chronically, we'll check blood cultures sputum culture and urinalysis. Patient is continued on IV fluids correcting his hyponatremia. Given patient's history of metastatic squamous cell lung cancer will plan to consult hematology oncology Dr. Nunez we'll also consult pulmonary for further recommendations. We'll continue to follow patient's clinical course as a patient is continued on BiPAP. CODE STATUS : Full code discussed plan of care with: Patient and his Brigida prophylaxis: Currently on Protonix and DOAC Anticipate discharge: 2-4 days
[2018-06-17] MEDS: methylPREDNISolone SOD SUCCI 125 MG/2 ML VIAL IV SCH ×2 (18:51→23:12)
[2018-06-17] MEDS: SODIUM CHLORIDE 0.9% 1,000 ML IV SCH (18:51)
[2018-06-17] MEDS: IPRATROPIUM-ALBUTEROL 3 ML NEB INHALATION SCH (19:58)
[2018-06-17] MEDS: FORMOTEROL FUMARATE 20 MCG/2 ML NEBU INHALATION SCH (19:58)
[2018-06-17] MEDS: BUDESONIDE 1 MG/2 ML NEBU INHALATION SCH (20:02)
--- NOTE | 2018-06-17 20:32 | CONS ---
CONSULTATION This is this is a pulmonary critical care consultation dated June 17, 2018. REASON FOR CONSULTATION: Shortness of breath. This is a 73-year-old white male who presents to the emergency department with complaints of difficulty breathing. He had not been feeling well for a couple days. The patient apparently was short of breath with chest congestion, coughing, wheezing and phlegm production. Things got progressively worse. In the emergency room, his need for oxygen continued to increase and eventually he was placed on BiPAP at 12 and 6 and 100%. He was initially on nasal cannula, changed to high-flow nasal cannula, non- rebreather mask and then to BiPAP. Anyway, the patient currently states he is feeling a bit better. As I mentioned, he is on the BiPAP at 12, 6 and 100%. No fever or chills. No chest pain or chest discomfort. No nausea, vomiting or diarrhea. He has a history of stage IV non-small cell lung cancer, squamous cell type, as well as a history of polymyositis, chronic obstructive lung disease with an FEV1 that is 51% predicted, making him stage II/stage III, paroxysmal atrial fibrillation, CAD, and chronic hypoxemic respiratory failure. He was seen by my partner, Dr. Roldan, last on May 05, 2018. ALLERGIES: Include IV DYE. MEDICATIONS: Include albuterol, amlodipine, atorvastatin, Celexa, cinnamon bark, Claritin, Dulera, Eliquis, fentanyl, fish oil, Flomax, gabapentin, hydroxyzine, DuoNeb q.i.d. and p.r.n., lidocaine topical patch, metoprolol, Opdivo, Protonix, Percocet, Requip, Spiriva, Tylenol, Ventolin, vitamin B1, vitamin D3, and Xanax. PAST MEDICAL HISTORY: Includes CAD, advanced lung cancer, stage IV squamous cell, COPD, gastroesophageal reflux disease, hyperlipidemia, hypertension and hypothyroidism. He is also status post right lobectomy for lung cancer and has been on immunotherapy for a number of weeks now. He also suffers from restless legs syndrome. Additional history includes adenoidectomy, appendectomy, cholecystectomy, heart catheterization with stent, tonsillectomy, bilateral knee surgery, lung biopsy on February 2016 and a robotically assisted right thoracoscopic right upper lobectomy and lymph node dissection. SOCIAL HISTORY: Positive for previous tobacco use. He does drink daily. Denies any illicit drug use. FAMILY HISTORY: Positive for breast and lung cancer, diabetes, myocardial infarction. REVIEW OF SYSTEMS: CONSTITUTIONAL: Negative. NEUROLOGIC: Negative. HEENT: Negative. CARDIOVASCULAR: Negative. PULMONARY: Shortness of breath, chest tightness, wheezing, cough, phlegm production. GI: Negative. : Negative. RHEUMATOLOGIC: Negative. IMMUNOLOGIC: Negative. ENDOCRINOLOGIC: Negative. DERMATOLOGIC: Negative. PHYSICAL EXAMINATION: Current vital signs include a temperature 97.9, heart rate 89, respiratory rate about mid 20s, blood pressure 125/74, mean 91, saturations are 97% on BiPAP. Appears mildly tachypneic and dyspneic. Some mild conversational dyspnea. No use of accessory muscles. No audible wheezing. HEENT examination is grossly unremarkable. Mask in place. NECK: Supple. Full range of motion. No adenopathy. Cardiovascular examination was regular rhythm and rate. Heart rate in the mid 80s. S1, S2 normal. Lungs reveals some expiratory rhonchi. There is some expiratory wheezes. Breath sounds diminished. Breath sounds equal bilaterally. Abdomen is soft. Bowel sounds are heard. Extremities are intact. No cyanosis, clubbing, or edema. Skin without rash. Neurologic examination seems to be intact. LABS: Reviewed. White count 17.5, hemoglobin 12.7, hematocrit 39.3, platelet count is normal. PT/INR and PTT normal. Sodium 130, potassium 4.4, chloride 94, CO2 29, BUN and creatinine were 15 and 0.72, glucose 143, albumin 3.2. Chest x-ray shows some elevated right diaphragm. There is some mild interstitial changes, which may relate to lymphangitic carcinomatosis. Medications are reviewed. He is currently on Pulmicort 1 mg mixed with Perforomist twice a day. He is getting DuoNeb q.i.d. and p.r.n. He is also getting Levaquin IV 750 mg as well as Solu-Medrol 60 mg q.6 hours. The patient is also on Zosyn at this time. ASSESSMENT: 1. Chronic obstructive pulmonary disease exacerbation complicated by purulent tracheobronchitis and possible bronchial pneumonia. 2. Acute on chronic hypoxemic respiratory failure. 3. Squamous cell carcinoma of the lung, advanced, stage IV, currently on immunotherapy with Opdivo. 4. History of hypertension. 5. History of hyperlipidemia. 6. Previous robotically assisted right upper lobectomy. 7. History of benign prostatic hypertrophy. 8. History of hypertension. 9. History of gastroesophageal reflux disease. 10.History of hyperlipidemia. 11.History of coronary artery disease with previous stent placement. 12.Multiple orthopedic procedures. 13.History of polymyositis. 14.History of paroxysmal atrial fibrillation. 15.History of coronary artery disease. PLAN: The patient's medications are adjusted. He is on a short-acting beta agonist and short- acting muscarinic antagonist. In addition, he will be maintained on long-acting beta agonist and inhaled corticosteroid. In addition, he will get some a corticosteroid and he is on antibiotics in form of Levaquin and Zosyn. The patient will continue to be watched very carefully. Currently on BiPAP at 12, 6 and 100%. Hopefully as he improves, we can titrate the FiO2 down. No additional recommendations are made. Prognosis is guarded given his advanced lung cancer. We will continue to follow. Prognosis is guarded. MMODL / IJN: [id number] /
[2018-06-17] MEDS ORDERED: LORATADINE 10 MG TAB PO PRN (21:00)
[2018-06-17] MEDS: CHOLECALCIFEROL 1,000 UNIT TAB PO SCH (21:04)
[2018-06-17] MEDS: GABAPENTIN 100 MG CAP PO SCH (21:05)
[2018-06-17] MEDS: PANTOPRAZOLE 40 MG TABLET PO SCH (21:05)
[2018-06-17] MEDS: APIXABAN 5 MG TAB PO SCH (21:05)
[2018-06-17] MEDS: PIPERACILLIN-TAZOBACTAM 3.375 GM in SODIUM CHLORIDE 0.9% 100 ML IVPB SCH (23:12)
[2018-06-17 23:23] LABS: Appearance,Urine Clear (Clear); Bilirubin,Urine Negative (Negative); Blood,Urine Negative (Negative); Color,Urine Light Yellow; Glucose,Urine (UA) 3+ (Negative); Ketones,Urine Negative (Negative); Leukocyte Esterase,Urine Negative (Negative); Nitrite,Urine Negative (Negative); Protein,Urine Negative (Negative); Specific Gravity,Urine 1.004 (1.001-1.035); Urobilinogen,Urine <2.0 mg/dL (<2.0)
[2018-06-18] MEDS ORDERED: HEPARIN SODIUM,PORCINE 5,000 UNIT/ML 1 ML VIAL SQ SCH
[2018-06-18] MEDS: SODIUM CHLORIDE 0.9% 1,000 ML IV SCH ×3 (02:10→20:25)
[2018-06-18] MEDS: methylPREDNISolone SOD SUCCI 125 MG/2 ML VIAL IV SCH ×3 (06:22→18:19)
[2018-06-18 06:45] LABS: Basophils % (A) 0 %; Eosinophils % (A) 0 %; HCT 37.6 % (39.0-53.0); Lymphocytes # (A) 0.4 k/uL (1.0-4.8); Lymphocytes % (A) 3 %; MCH 32.5 pg (25.0-35.0); MCHC 31.9 g/dL (31.0-37.0); MCV 101.7 fL (80.0-100.0); Macrocytosis Slight; Mean Platelet Volume 7.4; Monocytes # (A) 0.5 k/uL (0-1.0); Monocytes % (A) 3 %; Neutrophils # (A) 14.5 k/uL (1.3-7.7); Neutrophils % (A) 93 %; Platelet Count 210 k/uL (150-450); RDW 13.2 % (11.5-15.5); WBC 15.6 k/uL (3.8-10.6)
[2018-06-18 07:06] LABS: ALT 43 U/L (21-72); AST 25 U/L (17-59); Albumin 2.8 g/dL (3.5-5.0); Alkaline Phosphatase 87 U/L (38-126); Anion Gap 6 mmol/L; Blood Urea Nitrogen 14 mg/dL (9-20); Calcium 9.2 mg/dL (8.4-10.2); Carbon Dioxide 30 mmol/L (22-30); Chloride 101 mmol/L (98-107); Glucose 183 mg/dL (74-99); Potassium 4.4 mmol/L (3.5-5.1); Sodium 137 mmol/L (137-145); Total Bilirubin 0.6 mg/dL (0.2-1.3); Total Protein 5.4 g/dL (6.3-8.2)
[2018-06-18] MEDS: IPRATROPIUM-ALBUTEROL 3 ML NEB INHALATION SCH ×4 (07:09→19:07)
[2018-06-18] MEDS: FORMOTEROL FUMARATE 20 MCG/2 ML NEBU INHALATION SCH ×2 (07:09→19:07)
[2018-06-18] MEDS: BUDESONIDE 1 MG/2 ML NEBU INHALATION SCH ×2 (07:09→19:07)
[2018-06-18] MEDS ORDERED: NON-FORMULARY DRUG (Tiotropium 18 Mcg/Puff 1 CAP) INHALATION SCH (08:00)
--- NOTE | 2018-06-18 08:46 | XR ---
EXAMINATION TYPE: XR chest 1V portable DATE OF EXAM: 06/18/2018 COMPARISON: Prior chest x-ray 06/17/[address] chest 06/11/2018. HISTORY: Abnormal chest x-ray, rule out pneumonia TECHNIQUE: Single frontal view of the chest is obtained. FINDINGS: The interstitium is increased. Right hemidiaphragm remains elevated. Heart size is likely enlarged. No pneumothorax. Difficult to exclude effusion. There are overlying cardiac leads. IMPRESSION: Findings are similar to prior exam. Interstitial lung disease. Cardiomegaly. Elevated ri ght hemidiaphragm. See dictated report chest CT 06/11/2018.
[2018-06-18] MEDS: CITALOPRAM HYDROBROMIDE 20 MG TAB PO SCH (08:58)
[2018-06-18] MEDS: ACETAMINOPHEN TAB 325 MG TAB PO PRN (08:59)
[2018-06-18] MEDS: amLODIPine 5 MG TAB PO SCH (08:59)
[2018-06-18] MEDS: METOPROLOL TARTRATE 25 MG TAB PO SCH (08:59)
[2018-06-18] MEDS: PIPERACILLIN-TAZOBACTAM 3.375 GM in SODIUM CHLORIDE 0.9% 100 ML IVPB SCH ×2 (08:59→20:30)
[2018-06-18] MEDS: APIXABAN 5 MG TAB PO SCH ×2 (08:59→20:26)
[2018-06-18] MEDS: LISINOPRIL 10 MG TAB PO SCH (08:59)
--- NOTE | 2018-06-18 12:54 | P.PN ---
Subjective Progress Note Date: 06/18/18 The patient currently on 15 L nasal cannula, with reports compliance with BiPAP overnight. Family at bedside, discussed plan of care. The patient would like to be DO NOT RESUSCITATE, No acute events overnight Objective - Vital Signs Vital signs: Vital Signs Temp 97.8 F 06/18/18 08:00 Pulse 96 06/18/18 11:12 Resp 24 06/18/18 08:00 BP 109/62 06/18/18 08:00 Pulse Ox 92 L 06/18/18 08:00 Intake & Output 06/17/18 06/18/18 06/18/18 18:59 06:59 18:59 Intake Total 150 120 Output Total 725 1500 Balance -575 -1500 120 Weight 93.894 kg 95.5 kg Intake: Intake, IV Titration 150 Amount Levofloxacin 750Mg-D5w 150 Pmx 750 mg In Dextrose/ Water 1 150ml.bag @ 100 mls/hr IVPB ONCE STA Rx#: [id number] Oral 120 Output: Urine 725 1500 Other: Voiding Method Urinal Urinal - Exam Constitutional: No acute distress, conversant, pleasant Eyes: Anicteric sclerae, moist conjunctiva, no lid-lag, PERRLA ENMT: NC/AT,Oropharynx clear, no erythema, exudates Neck:Supple, FROM, no masses, or JVD, No carotid bruits; No thyromegaly Lungs: Much improved air movement still some expiratory wheezes in the bases, currently on 15 L Breathing unlabored Cardiovascular: Heart regular in rate and rhythm, No murmurs, gallops, or rubs no peripheral edema Abdominal: Soft Nontender, nom distended, no guarding, no rebound or rigidity, Normoactive bowel sounds No hepatomegaly, No splenomegaly, No palpable mass No abdominal wall hernia noted Skin: Normal temperature, tone, texture, turgor, No induration No subcutaneous nodules, No rash, lesions, No ulcers Extremities:No digital cyanosis No clubbing, Pedal pulses intact and symmetrical Radial pulses intact and symmetrical Normal gait and station, No calf tenderness Psychiatric: Alert and oriented to person, place and time, Appropriate affect Intact judgement Neuro: Muscles Strength 5/5 in all 4 extremities, Sensation to light touch [place] ssly present throughout, Cranial nerves II-XII grossly intact. No focal sensory deficits - Labs CBC & Chem 7: 06/18/18 06:05 06/18/18 06:05 Labs: Abnormal Lab Results - Last 24 Hours (Table) 06/17/18 06/17/18 06/17/18 Range/Units 13:59 13:59 21:30 WBC 17.5 H (3.8-10.6) k/uL RBC 3.95 L (4.30-5.90) m/uL Hgb 12.7 L (13.0-17.5) gm/dL Hct (39.0-53.0) % MCV (80.0-100.0) fL Neutrophils # 15.2 H (1.3-7.7) k/uL Lymphocytes # 0.7 L (1.0-4.8) k/uL Monocytes # 1.1 H (0-1.0) k/uL Sodium 130 L (137-145) mmol/L Chloride 94 L (98-107) mmol/L Glucose 143 H (74-99) mg/dL Total Protein 5.9 L (6.3-8.2) g/dL Albumin 3.2 L (3.5-5.0) g/dL Urine Glucose (UA) 3+ H (Negative) 06/18/18 06/18/18 Range/Units 06:05 06:05 WBC 15.6 H (3.8-10.6) k/uL RBC 3.70 L (4.30-5.90) m/uL Hgb 12.0 L (13.0-17.5) gm/dL Hct 37.6 L (39.0-53.0) % MCV 101.7 H (80.0-100.0) fL Neutrophils # 14.5 H (1.3-7.7) k/uL Lymphocytes # 0.4 L (1.0-4.8) k/uL Monocytes # (0-1.0) k/uL Sodium (137-145) mmol/L Chloride (98-107) mmol/L Glucose 183 H (74-99) mg/dL Total Protein 5.4 L (6.3-8.2) g/dL Albumin 2.8 L (3.5-5.0) g/dL Urine Glucose (UA) (Negative) Assessment and Plan (1) Acute on chronic respiratory failure with hypoxia Narrative/Plan: * Secondary to acute COPD exacerbation * Appreciate chest x-ray showing interstitial lung disease and right elevated diaphragm * Patient continued on BiPAP therapy, pulmonary consulted Dr. Uribe following appreciate recommendations Current Visit: Yes Status: Acute Code(s): J96.21 - ACUTE AND CHRONIC RESPIRATORY FAILURE WITH HYPOXIA SNOMED Code(s): 74332578 (2) COPD with acute exacerbation Narrative/Plan: * Continue systemic steroids Solu-Medrol 60 mg IV 4 times a day with scheduled and when necessary updrafts and inhaled steroids Perforomist and Symbicort * Continue antibiotics with Levaquin and Zosyn Current Visit: Yes Status: Acute Code(s): J44.1 - CHRONIC OBSTRUCTIVE PULMONARY DISEASE W (ACUTE) EXACERBATION SNOMED Code(s): 903360292 (3) Leukocytosis Narrative/Plan: * Trending down nicely chest x-ray shows no suggestion of infectious process * Blood culture pending, sputum culture ordered, urinalysis negative for any suggestion of UTI Current Visit: Yes Status: Acute Code(s): D72.829 - ELEVATED WHITE BLOOD CELL COUNT, UNSPECIFIED SNOMED Code(s): 944188219 (4) Hyponatremia Narrative/Plan: * Resolved with IV fluids Current Visit: Yes Status: Resolved Code(s): E87.1 - HYPO-OSMOLALITY AND HYPONATREMIA SNOMED Code(s): 18214034 (5) Lung cancer metastatic to bone Narrative/Plan: * Hematology oncology Dr. Nunez consulted * Awaiting further recommendation Current Visit: No Status: Acute Code(s): C34.90 - MALIGNANT NEOPLASM OF UNSP PART OF UNSP BRONCHUS OR LUNG; C79.51 - SECONDARY MALIGNANT NEOPLASM OF BONE SNOMED Code(s): 53610976 Plan: * Anticipated discharge 1.-2 days
[2018-06-18] MEDS: HYDROmorphone 2 MG TAB PO PRN ×2 (13:04→18:21)
[2018-06-18] MEDS: THIAMINE 100 MG TAB PO SCH (13:04)
--- NOTE | 2018-06-18 14:45 | PN ---
PROGRESS NOTE This is a progress note dated June 18, 2018. This is a 73-year-old gentleman who was seen yesterday in consultation. He has a history of COPD exacerbation complicated by purulent tracheobronchitis with possible pneumonia. In addition, he has a history of acute on chronic hypoxemic respiratory failure and stage 4/advanced non-small cell lung cancer, squamous cell type, who was previously on Opdivo. The patient was to start radiation therapy tomorrow, but that will obviously be placed on hold. He is feeling a bit better. He absolutely does not want a BiPAP device. We told him that he can not use it if he does not want it. In addition to the above, he has a history of hypertension, hyperlipidemia, robotically assisted right upper lobectomy, BPH, hypertension, GERD, hyperlipidemia, CAD with stent placement, and paroxysmal atrial fibrillation. Again, the patient is feeling better. Less short of breath. Still coughing. Producing a small amount of phlegm. Current vital signs are reviewed. Temperature 97.8, heart rate 80, respiratory rate 24, blood pressure 109/62, mean 77, saturations between 88 and 92% on nasal O2. Appears in no acute distress. Does not have any conversational dyspnea, audible wheezing or use of accessory muscles. HEENT examination is grossly unremarkable. Mucous membranes are moist. No oral lesions. Neck is supple. Full range of motion. No adenopathy or thyromegaly. Neck veins are flat. Cardiovascular examination reveals regular rhythm rate. Heart rate about 84 beats per minute. S1, S2 normal. Lungs reveal coarse rhonchi. Breath sounds are diminished. There is some expiratory wheezes. There is prolongation on forced maneuver. Breath sounds are equal bilaterally but diminished throughout. Abdomen is soft. Bowel sounds are heard. Extremities are intact. There is no cyanosis, clubbing, or edema. Skin without rash. Neurologic examination is brief but nonfocal. LABORATORY STUDIES: White count 15.6, hemoglobin 12, hematocrit 37.6, platelet count 210,000. PT/INR, PTT normal. Sodium, potassium, chloride, CO2 all normal. BUN and creatinine were 14 and 0.76. Anion gap is 6. Urine is essentially negative. Chest x-rays were reviewed. The chest x-ray shows an elevated right hemidiaphragm. He has got some mild cardiomegaly. Some interstitial changes, which may relate to lymphangitic carcinomatosis versus interstitial edema versus interstitial pneumonitis. Microbiologic studies are thus far negative. Medications are reviewed. He is on all appropriate medications. He is receiving Levaquin, Solu-Medrol, updrafts and steroids. ASSESSMENT: 1. Acute exacerbation of chronic obstructive pulmonary disease complicated by purulent tracheobronchitis and possible interstitial pneumonitis. 2. Acute on chronic hypoxemic respiratory failure. 3. Squamous cell carcinoma of the lung, advanced, stage IV, with recent treatment with Opdivo. 4. History of hypertension. 5. History of hyperlipidemia. 6. History of robotically assisted right upper lobectomy. 7. History of benign prostatic hypertrophy. 8. Hypertension by history. 9. Gastroesophageal reflux disease. 10.Hyperlipidemia. 11.Coronary artery disease with previous PCI and stent placement. 12.History of polymyositis. 13.Paroxysmal atrial fibrillation. 14.History of coronary artery disease. PLAN: The patient remains on short and long-acting beta agonist as well as short-acting muscarinic antagonist and inhaled corticosteroids. The patient remains on antibiotics and steroids. We will continue to follow. I told the patient he did not have to use of BiPAP if he did not want to. The nurse will ensure that his saturations remain between 88 and 92%. We will continue to follow. Prognosis is guarded. The patient will not be able to start radiation therapy tomorrow. MMODL / BRIN: [id number] /
[2018-06-18] MEDS ORDERED: LEVOFLOXACIN 750MG-D5W PMX 750 MG in DEXTROSE/WATER 1 150ML.BAG IVPB SCH (16:00)
[2018-06-18 16:53] LABS: Glucose,Whole Blood 198 mg/dL (75-99)
[2018-06-18] MEDS: INSULIN ASPART (NovoLOG) 100 UNIT/ML VIAL SQ SCH ×2 (18:19→21:35)
[2018-06-18] MEDS: GABAPENTIN 100 MG CAP PO SCH (20:26)
[2018-06-18] MEDS: PANTOPRAZOLE 40 MG TABLET PO SCH (20:26)
[2018-06-18] MEDS: CHOLECALCIFEROL 1,000 UNIT TAB PO SCH (20:27)
[2018-06-18 20:50] LABS: Glucose,Whole Blood 237 mg/dL (75-99)
[2018-06-19] MEDS: methylPREDNISolone SOD SUCCI 125 MG/2 ML VIAL IV SCH ×4 (01:13→17:51)
[2018-06-19] MEDS: PIPERACILLIN-TAZOBACTAM 3.375 GM in SODIUM CHLORIDE 0.9% 100 ML IVPB SCH ×3 (01:13→16:16)
[2018-06-19 06:02] LABS: Glucose,Whole Blood 211 mg/dL (75-99)
[2018-06-19] MEDS: INSULIN ASPART (NovoLOG) 100 UNIT/ML VIAL SQ SCH ×4 (06:32→20:27)
[2018-06-19] MEDS: HYDROmorphone 2 MG TAB PO PRN ×4 (06:35→20:26)
[2018-06-19] MEDS: SODIUM CHLORIDE 0.9% 1,000 ML IV SCH ×2 (08:59→12:34)
[2018-06-19] MEDS: APIXABAN 5 MG TAB PO SCH ×2 (09:03→20:26)
[2018-06-19] MEDS: LISINOPRIL 10 MG TAB PO SCH (09:03)
[2018-06-19] MEDS: amLODIPine 5 MG TAB PO SCH (09:04)
[2018-06-19] MEDS: CITALOPRAM HYDROBROMIDE 20 MG TAB PO SCH (09:04)
[2018-06-19] MEDS: METOPROLOL TARTRATE 25 MG TAB PO SCH (09:04)
[2018-06-19] MEDS: IPRATROPIUM-ALBUTEROL 3 ML NEB INHALATION SCH ×5 (09:06→23:33)
[2018-06-19] MEDS: FORMOTEROL FUMARATE 20 MCG/2 ML NEBU INHALATION SCH ×2 (09:06→20:05)
[2018-06-19] MEDS: BUDESONIDE 1 MG/2 ML NEBU INHALATION SCH ×2 (09:06→20:05)
[2018-06-19 11:13] LABS: Glucose,Whole Blood 177 mg/dL (75-99)
[2018-06-19] MEDS: THIAMINE 100 MG TAB PO SCH (12:33)
[2018-06-19] MEDS ORDERED: BUDESONIDE 1 MG/2 ML NEBU INHALATION SCH (14:09)
[2018-06-19] MEDS ORDERED: FUROSEMIDE 10 MG/ML 2 ML VIAL IV ONE (14:13)
[2018-06-19] MEDS: LACTATED RINGERS 1,000 ML IV SCH (14:35)
[2018-06-19 15:18] LABS: Hemoglobin A1C 6.3 % (4.0-6.0)
[2018-06-19] MEDS: LEVOFLOXACIN 750 MG TAB PO SCH (16:15)
[2018-06-19 16:35] LABS: Glucose,Whole Blood 169 mg/dL (75-99)
--- NOTE | 2018-06-19 17:49 | P.PN ---
Subjective Progress Note Date: 06/19/18 Principal diagnosis: Acute exacerbation of chronic obstructive pulmonary disease, interstitial pneumonitis, acute on chronic hypoxic respiratory failure, squamous cell carcinoma of the lung, stage IV This is 73-year-old white male patient with a history of squamous cell carcino ma of the lung, stage IV with recent treatment with Opdivo, who was admitted to the hospital on 06/17/2018 with complaints of worsening hypoxemic respiratory failure, apparently patient's O2 sat was in the 50s on his usual 5 L. Patient did not have any fever or chills or increased cough. No chest pain or palpitations. No nausea, vomiting or diarrhea. No swelling tenderness in lower extremities, chest x-ray showed pulmonary fibrosis, chronically elevated right hemidiaphragm. Follow-up chest x-ray yesterday on 06/18/2018 showed findings similar to the prior exam, interstitial lung disease, cardiomegaly, and elevated right hemidiaphragm. His most recent CT of the chest showed a nodule in the right lower lobe seems to have enlarged mildly compared 04/12/2018. There was right paratracheal mediastinal nodule Versus lymph node that was slightly enlarged, this could represent evidence of disease progression. There was an large lytic soft tissue mass at the right aspect of T2, there was redemonstration of right-sided rib fractures. Initial blood work showed leukocytosis, with a white blood cell count of 17.5, hemoglobin of 12.7, PT was 10.7, INR is 1.0, sodium was 1:30, potassium is 4.4, chloride was 94, renal profile was within normal limits, troponin was negative 1, urinalysis showed 3+ glucose, but no evidence of infection. Initially patient was placed on BiPAP, improved, yesterday we switched the patient to high flow nasal cannula, skin liters, currently down to 10 L per high flow pulse ox is 90%, he is afebrile, hemodynamically stable, lung sounds reveal coarse crackles at the left base posteriorly. Cultures showed no growth. Current antibiotic coverage with Leva tamie and Zosyn, IV Solu-Medrol, and nebulized bronchodilators. Objective - Vital Signs Vital signs: Vital Signs Temp 97.4 F L 06/19/18 11:54 Pulse 76 06/19/18 16:29 Resp 16 06/19/18 16:00 BP 112/57 06/19/18 16:00 Pulse Ox 90 L 06/19/18 16:00 Intake & Output 06/18/18 06/19/18 06/19/18 18:59 06:59 18:59 Intake Total 700 602 Output Total 425 1400 600 Balance 275 -1400 2 Weight 92.1 kg Intake: Intake, IV Titration 100 140 Amount Piperacillin-Tazobactam 3 100 100 .375 gm In Sodium Chloride 0.9% 100 ml @ 25 mls/hr IVPB Q8HR [facility] Rx# :[id number] Sodium Chloride 0.9% 1, 40 000 ml @ 120 mls/hr IV . Q8H20M [facility] Rx#:[id number] Oral 600 462 Output: Urine 425 1400 600 - Exam GENERAL EXAM: Alert, pleasant, 73-year-old male patient, currently on 10 L per high flow nasal cannula comfortable in no apparent distress. HEAD: Normocephalic/atraumatic. EYES: Normal reaction of pupils, equal size. Conjunctiva pink, sclera white. NOSE: Clear with pink turbinates. THROAT: No erythema or exudates. NECK: No masses, no JVD, no thyroid enlargement, no adenopathy. CHEST: No chest wall deformity. Symmetrical expansion. LUNGS: Equal air entry with coarse respiratory crackles over left lower base posteriorly CVS: Regular rate and rhythm, normal S1 and S2, no gallops, no murmurs, no rubs ABDOMEN: Soft, nontender. No hepatosplenomegaly, normal bowel sounds, no guarding or rigidity. EXTREMITIES: No clubbing, no edema, no cyanosis, 2+ pulses and upper and lower extremities. MUSCULOSKELETAL: Muscle strength and tone normal. SPINE: No scoliosis or deformity SKIN: No rashes CENTRAL NERVOUS SYSTEM: Alert and oriented -3. No focal deficits, tone is normal in all 4 extremities. PSYCHIATRIC: Alert and oriented -3. Appropriate affect. Intact judgment and insight. - Labs CBC & Chem 7: 06/18/18 06:05 06/18/18 06:05 Labs: Abnormal Lab Results - Last 24 Hours (Table) 06/18/18 06/19/18 06/19/18 Range/Units 20:48 06:01 06:03 POC Glucose (mg/dL) 237 H 211 H (75-99) mg/dL Hemoglobin A1c 6.3 H (4.0-6.0) % 06/19/18 06/19/18 Range/Units 11:10 16:28 POC Glucose (mg/dL) 177 H 169 H (75-99) mg/dL Hemoglobin A1c (4.0-6.0) % Microbiology - Last 24 Hours (Table) 06/17/18 14:05 Blood Culture - Preliminary Blood No Growth after 48 hours Assessment and Plan Plan: Assessment: #1. Acute on chronic hypoxemic respiratory failure multifactorial, related to exacerbation of chronic obstructive pulmonary disease and possible bronchopneumonia. #2. Metastatic squamous cell lung cancer, most recently there has been bony metastasis noted to the right aspect of T2, thoracic spine, currently on Opdivo. Nodule in the right lower lobe noted to be mildly enlarged, there was right paratracheal mediastinal nodule versus lymph node slightly enlarged, this could represent disease progression. he is status post robotic-assisted thoracoscopic right upper lobectomy and lymph node dissection, and chemotherapy, with recurrence of metastatic lung cancer #3. Hypertension, hyperlipidemia #4. Coronary artery disease with previous stenting #5. Anxiety, depression #7. Nicotine dependence, currently in remission #8. Hypothyroidism #9. GERD/Reflux Plan: We will continue with current medical treatment, current antibiotic coverage, IV steroids, nebulized bronchodilators, continue weaning FiO2, overall patient is breathing easier, we were able to wean down the FiO2. Lung sounds reveal coarse crackles at the left lower base. Probably won't be able to start radiation right now in view of acute compensation respiratory status, we'll continue to follow I performed a history & physical examination of the patient and discussed their management with my nurse practitioner, Shila Becerril. I reviewed the nurse practitioner's note and agree with the documented findings and plan of care. Lung sounds are positive for crackles at the left lower base. The findings and the impression was discussed with the patient. I attest to the documentation by the nurse practitioner. Time with Patient: Less than 30
[2018-06-19 20:17] LABS: Glucose,Whole Blood 211 mg/dL (75-99)
[2018-06-19] MEDS: GABAPENTIN 100 MG CAP PO SCH (20:26)
[2018-06-19] MEDS: PANTOPRAZOLE 40 MG TABLET PO SCH (20:26)
[2018-06-19] MEDS: CHOLECALCIFEROL 1,000 UNIT TAB PO SCH (20:26)
[2018-06-19] MEDS: ALPRAZolam 0.5 MG TAB PO PRN (22:18)
--- NOTE | 2018-06-19 23:45 | P.CONS ---
History of Present Illness - Reason for Consult Consult date: 06/19/18 Lung Cancer Requesting physician: Rodolfo Lowery - Chief Complaint Shortness of Breath - History of Present Illness Mr. Lyons is a male patient with known Stage 4 squamous cell carcinoma most recently receiving immune therapy with opdivo. He presented with complaints of worsening shortness of breath, hypoxic respiratory failure. He was unable to keep his oxygenation above 50% on his home oxygen. Chest Xray on admission revealed pulmonary fibrosis, Interstitial Lung Disease, and chronic elevation in right hemidiaphragm. He was placed on bipap initially then after improvement converted to HI-FLow oxygen, ANtibiotics, corticosteroids, and nebulizers treatments initiated. He has been afebrile. Pulmonary is following Review of Systems A 14 point review of systems assessed and completed and all negative except HPI Past Medical History Past Medical History: Coronary Artery Disease (CAD), Cancer, COPD, GERD/Reflux, Hyperlipidemia, Hypertension, Prostate Disorder, Thyroid Disorder Additional Past Medical History / Comment(s): rt LOBECTOMY FOR LUNG CANCER,pt stated he had 9 weeks of chemo "that did'nt work" then was placed on immunotherapy"has been on immunotherapy 11 weeks" , restless legs syndrome History of Any Multi-Drug Resistant Organisms: None Reported Past Surgical History: Adenoidectomy, Appendectomy, Cholecystectomy, Heart Catheterization With Stent, Tonsillectomy Additional Past Surgical History / Comment(s): bilateral knee surgery(on cartilage), CARDIAC STENT- RCA-2007, lung bx,02-27-16 ROBOTIC ASSISTED RT THOROSCOPY/RT UPPER LOBECTOMY /LYMPH NODE DISECTION. Past Anesthesia/Blood Transfusion Reactions: No Reported Reaction Date of Last Stent Placement:: 2007 Smoking Status: Former smoker - Past Family History Mother Family Medical History: Cancer Additional Family Medical History / Comment(s): breast and lung cancer Father Family Medical History: Diabetes Mellitus, Myocardial Infarction ([place]) Additional Family Medical History / Comment(s): mi x2 with 2nd one Medications and Allergies Home Medications Medication Instructions Recorded Confirmed Type Pantoprazole Sodium [Protonix] 40 mg PO HS 12/15/15 06/17/18 History amLODIPine BESYLATE/BENAZEPRIL 1 cap PO QAM 12/15/15 06/17/18 History [Lotrel 5-10 MG] Cholecalciferol [Vitamin D3] 5,000 unit PO HS 02/20/16 06/17/18 History Cinnamon Bark [Cinnamon] 1,000 mg PO DAILY 02/20/16 06/17/18 History Apixaban [Eliquis] 5 mg PO BID #60 tab 03/06/16 06/17/18 Rx Citalopram Hydrobromide [CeleXA] 20 mg PO QAM tab 03/06/16 06/17/18 Rx Tamsulosin [Flomax] 0.4 mg PO QAM cap.er.24h 03/06/16 06/17/18 Rx Metoprolol Tartrate [Lopressor] 25 mg PO DAILY 04/25/16 06/17/18 History Loratadine [Claritin] 5 mg PO Q12HR tab 04/27/16 06/17/18 Rx Mometasone/Formoterol [Dulera 200 2 puff INHALATION RT-BID 06/16/17 06/17/18 History Mcg/5 Mcg Inhaler] Tiotropium 18 Mcg/Puff [Spiriva] 1 cap INHALATION RT-DAILY 06/16/17 06/17/18 History hydrOXYzine HCL 25 - 50 mg PO DAILY PRN 06/16/17 06/17/18 History rOPINIRole HCL [Requip] 1 mg PO BID@1400,2100 06/16/17 06/17/18 History Thiamine [Vitamin B-1] 250 mg PO DAILY 07/07/17 06/17/18 History ALPRAZolam [Xanax] 0.5 mg PO DAILY PRN 12/29/17 06/17/18 History Gabapentin [Neurontin] 200 mg PO HS 12/29/17 06/17/18 History L.acidoph,Paracasei, B.lactis 1 cap PO DAILY 12/29/17 06/17/18 History [Probiotic] Prochlorperazine [Compazine] 10 mg PO Q6H PRN 12/29/17 06/17/18 History Albuterol Nebulized [Ventolin 2.5 mg INHALATION RT-QID PRN 04/12/18 06/17/18 History Nebulized] Ipratropium [place] [Atrovent Hfa] 1 puff INHALATION RT-DAILY 06/11/18 06/17/18 History Lidocaine 5% Patch [Lidoderm 5% 1 patch TRANSDERM DAILY PRN 06/11/18 06/17/18 History Patch] predniSONE 5 mg PO BID 06/11/18 06/17/18 History HYDROmorphone [Dilaudid] 4 mg PO Q4HR PRN 06/17/18 06/17/18 History Mometasone/Formoterol [Dulera 200 2 puff INHALATION BID 06/17/18 06/17/18 History Mcg/5 Mcg Inhaler] Thiamine [Vitamin B-1] 250 mg PO DAILY 06/17/18 06/17/18 History fentaNYL 50MCG/HR PATCH [Duragesic 50 mcg TRANSDERM Q72H 06/17/18 06/17/18 History 50MCG/HR] Allergies Allergy/AdvReac Type Severity Reaction Status Date / Time cat dander Allergy Rash/Hives Verified 06/17/18 13:43 Iodinated Contrast- Oral and Allergy Unknown Verified 06/17/18 13:43 IV Dye iodine Allergy Nausea Verified 06/17/18 13:43 Physical Exam Vitals: Vital Signs Temp Pulse Pulse Resp BP Pulse Ox 06/19/18 13:39 80 06/19/18 13:27 84 06/19/18 11:54 97.4 F L 82 16 117/62 91 L 06/19/18 09:31 84 06/19/18 09:21 80 06/19/18 09:20 80 06/19/18 09:06 80 94 L 06/19/18 08:00 97.3 F L 78 18 110/62 96 06/19/18 00:50 79 20 103/55 93 L 06/18/18 20:23 98.2 F 87 20 115/53 92 L 06/18/18 19:51 79 06/18/18 19:35 84 06/18/18 19:29 76 93 L 06/18/18 16:00 97.7 F 77 94/53 92 L 06/18/18 15:19 76 06/18/18 15:09 74 Intake and Output 06/18/18 06/19/18 06/19/18 22:59 06:59 14:59 Intake Total 240 602 Output Total 1225 600 Balance -985 -600 602 Intake: Intake, IV Titration 140 Amount Piperacillin-Tazobactam 3 100 .375 gm In Sodium Chloride 0.9% 100 ml @ 25 mls/hr IVPB Q8HR [facility] Rx# :[id number] Sodium Chloride 0.9% 1, 40 000 ml @ 120 mls/hr IV . Q8H20M [facility] Rx#:[id number] Oral 240 462 Output: Urine 1225 600 Other: Weight 92.1 kg Gen: Mild distress, alert Head: NC, NT Neck: SUpple, no palpable adenopathy Mouth/mucus membranes dry, scant areas of thrush Lungs: Diminished throughout with coarse breath sounds, mild increased effort noted Heart: Tachycardia ABdomen: Soft, ND, NT Neuro: No sensory or motor deficits noted Results CBC & Chem 7: 06/18/18 06:05 06/18/18 06:05 Labs: Abnormal Lab Results - Last 24 Hours (Table) 06/18/18 06/18/18 06/19/18 Range/Units 16:47 20:48 06:01 POC Glucose (mg/dL) 198 H 237 H 211 H (75-99) mg/dL 06/19/18 Range/Units 11:10 POC Glucose (mg/dL) 177 H (75-99) mg/dL Microbiology - Last 24 Hours (Table) 06/17/18 14:05 Blood Culture - Preliminary Blood No Growth after 24 hours Chest x-ray: report reviewed Assessment and Plan Plan: Assessment and Recommendations: 1. Non-small Cell Lung Cancer - Metastatic disease bone - Most recent treatment with immune therapy - Opdivo - this was December of 2017 therefore not related to acute hypoxia 2. Acute on Chronic Hypoxic Respiratory Failure: - Pulmonary is following - COntinue supportive care with steroids, PPI, Antibiotics, and Bronchodilators Physician Attest: I have completed the full history and physical and devloped the complete impression and plan, agree with above, dictated as a scribe
[2018-06-20] MEDS: PIPERACILLIN-TAZOBACTAM 3.375 GM in SODIUM CHLORIDE 0.9% 100 ML IVPB SCH ×4 (00:15→23:17)
[2018-06-20] MEDS: methylPREDNISolone SOD SUCCI 125 MG/2 ML VIAL IV SCH ×4 (00:23→18:10)
[2018-06-20] MEDS: IPRATROPIUM-ALBUTEROL 3 ML NEB INHALATION SCH ×5 (03:35→20:47)
[2018-06-20 06:07] LABS: Glucose,Whole Blood 220 mg/dL (75-99)
[2018-06-20] MEDS: LACTATED RINGERS 1,000 ML IV SCH (06:22)
[2018-06-20] MEDS: INSULIN ASPART (NovoLOG) 100 UNIT/ML VIAL SQ SCH ×4 (06:22→22:05)
--- NOTE | 2018-06-20 06:35 | PN ---
PROGRESS NOTE DATE OF SERVICE: 06/19/2018 PRESENTING COMPLAINT: Short of breath, wheezing. INTERVAL HISTORY: This pleasant gentleman was admitted with shortness of breath, wheezing, still short of breath, requiring high-flow oxygen. Sitting up. Appetite is not too good. at the bedside. The patient normally at home drinks about 3 to 4 L. The patient being treated for CA lung by Dr. Aguayo. Also radiation by Dr. Machado. Slight cough is present. The patient is on IV antibiotics. Not feeling better. REVIEW OF SYSTEMS: Done for constitutional, cardiovascular, GI, pulmonary; relevant findings as above. CURRENT MEDICATIONS: Current medications are reviewed that include DuoNeb, Norvasc, Eliquis, Celexa, Duragesic patch, Neurontin, IV Zosyn Levaquin, Requip, Solu-Medrol. PHYSICAL EXAMINATION: On examination, temperature 97.4, pulse 82, respiration 22, blood pressure 117/62, pulse ox 91% on 10 L. GENERAL APPEARANCE: BMI 30. Sitting up, short of breath at rest. EYES: Pupils equal. Conjunctivae normal. HENT: External appearance of nose and ears normal. Oral cavity normal. NECK: JVD unable to assess. Mass not palpable. RESPIRATORY: Effort increased. LUNGS: Decreased breath sounds. Prolonged expiration. Some basal crackles. CARDIOVASCULAR: First and second sounds normal. Minimal edema. ABDOMEN: Distended, soft. Liver and spleen not palpable. LYMPHATIC: No lymph node palpable in the neck or axillae. PSYCHIATRY: Alert and oriented x3. Mood and affect anxious appearing. INVESTIGATIONS: White count 15.6. Potassium 4.4. Accu-Cheks 211, 177. ASSESSMENT: 1. Acute severe chronic obstructive pulmonary disease exacerbation. 2. Possible pneumonia suspect gram-negative organism. 3. Acute on chronic hypoxic respiratory failure from above, requiring high-flow oxygen. 4. Metastatic squamous cell lung cancer with bony metastasis in the region of T2 thoracic spine. The patient is currently on Opdivo. There may be disease progression. 5. Status post thoracoscopic right upper lobe lobectomy and lymph node dissection with chemotherapy and recurrence of metastatic lung cancer. 6. Essential hypertension. 7. Hyperlipidemia. 8. Coronary artery disease, prior stenting. 9. Anxiety, depression. 10.Hypothyroidism. 11.Gastroesophageal reflux disease. 12.Chronically elevated right diaphragm. 13.Restless legs syndrome. 14.Benign prostatic hypertrophy. 15.Coronary artery disease with prior history of stent to the RCA in 2007. 16.Paroxysmal atrial fibrillation for which patient is chronically on Eliquis. PLAN: Patient is slow to improve. Will increase inhaled steroids. Increase the bronchodilator frequency to every 4 hours. We will also DC the small dose of Lopressor patient is on. Patient's blood pressure is starting to run a bit on the lower side. Care was discussed at length with Dr. Roldan and the patient. Prognosis is guarded. Will also consult Dr. Machado. MMODL / IJN: [id number] /
[2018-06-20] MEDS: BUDESONIDE 1 MG/2 ML NEBU INHALATION SCH ×2 (08:32→20:47)
[2018-06-20] MEDS: FORMOTEROL FUMARATE 20 MCG/2 ML NEBU INHALATION SCH ×2 (08:35→20:47)
[2018-06-20] MEDS: LISINOPRIL 10 MG TAB PO SCH (08:57)
[2018-06-20] MEDS: amLODIPine 5 MG TAB PO SCH (08:57)
[2018-06-20] MEDS: APIXABAN 5 MG TAB PO SCH ×2 (08:57→20:33)
[2018-06-20] MEDS: CITALOPRAM HYDROBROMIDE 20 MG TAB PO SCH (08:57)
[2018-06-20] MEDS: HYDROmorphone 2 MG TAB PO PRN ×4 (08:57→20:33)
[2018-06-20 11:42] LABS: Glucose,Whole Blood 198 mg/dL (75-99)
[2018-06-20] MEDS ORDERED: FUROSEMIDE 10 MG/ML 2 ML VIAL IV ONE (12:01)
[2018-06-20] MEDS: THIAMINE 100 MG TAB PO SCH (12:37)
--- NOTE | 2018-06-20 12:57 | P.PN ---
Subjective Progress Note Date: 06/20/18 Principal diagnosis: Acute exacerbation of chronic obstructive pulmonary disease, interstitial pneumonitis, acute on chronic hypoxic respiratory failure, squamous cell carcinoma of the lung, stage IV This is 73-year-old white male patient with a history of squamous cell carcino ma of the lung, stage IV with recent treatment with Opdivo, who was admitted to the hospital on 06/17/2018 with complaints of worsening hypoxemic respiratory failure, apparently patient's O2 sat was in the 50s on his usual 5 L. Patient did not have any fever or chills or increased cough. No chest pain or palpitations. No nausea, vomiting or diarrhea. No swelling tenderness in lower extremities, chest x-ray showed pulmonary fibrosis, chronically elevated right hemidiaphragm. Follow-up chest x-ray yesterday on 06/18/2018 showed findings similar to the prior exam, interstitial lung disease, cardiomegaly, and elevated right hemidiaphragm. His most recent CT of the chest showed a nodule in the right lower lobe seems to have enlarged mildly compared 04/12/2018. There was right paratracheal mediastinal nodule Versus lymph node that was slightly enlarged, this could represent evidence of disease progression. There was an large lytic soft tissue mass at the right aspect of T2, there was redemonstration of right-sided rib fractures. Initial blood work showed leukocytosis, with a white blood cell count of 17.5, hemoglobin of 12.7, PT was 10.7, INR is 1.0, sodium was 1:30, potassium is 4.4, chloride was 94, renal profile was within normal limits, troponin was negative 1, urinalysis showed 3+ glucose, but no evidence of infection. Initially patient was placed on BiPAP, improved, yesterday we switched the patient to high flow nasal cannula, skin liters, currently down to 10 L per high flow pulse ox is 90%, he is afebrile, hemodynamically stable, lung sounds reveal coarse crackles at the left base posteriorly. Cultures showed no growth. Current antibiotic coverage with Leva tamie and Zosyn, IV Solu-Medrol, and nebulized bronchodilators. On 06/20/2016 patient seen in follow-up on selective care unit, FiO2 is down to 8 L per nasal cannula, patient was able to get up and take a shower today, lung sounds reveal some limited crackles over left lower base, but overall less c rackling on today's exam, no rhonchi, no wheezes, sputum and blood cultures are negative. Objective - Vital Signs Vital signs: Vital Signs Temp 98.2 F 06/20/18 07:54 Pulse 96 06/20/18 12:00 Resp 16 06/20/18 12:00 BP 116/58 06/20/18 12:00 Pulse Ox 92 L 06/20/18 12:00 Intake & Output 06/19/18 06/20/18 06/20/18 18:59 06:59 18:59 Intake Total 842 360 Output Total 600 500 Balance 242 -500 360 Weight 92.6 kg Intake: Intake, IV Titration 140 Amount Piperacillin-Tazobactam 3 100 .375 gm In Sodium Chloride 0.9% 100 ml @ 25 mls/hr IVPB Q8HR [facility] Rx# :[id number] Sodium Chloride 0.9% 1, 40 000 ml @ 120 mls/hr IV . Q8H20M [facility] Rx#:[id number] Oral 702 360 Output: Urine 600 500 Other: # Voids 1 - Exam GENERAL EXAM: Alert, pleasant, 73-year-old male patient, currently on 10 L per high flow nasal cannula comfortable in no apparent distress. HEAD: Normocephalic/atraumatic. EYES: Normal reaction of pupils, equal size. Conjunctiva pink, sclera white. NOSE: Clear with pink turbinates. THROAT: No erythema or exudates. NECK: No masses, no JVD, no thyroid enlargement, no adenopathy. CHEST: No chest wall deformity. Symmetrical expansion. LUNGS: Equal air entry with coarse respiratory crackles over left lower base posteriorly CVS: Regular rate and rhythm, normal S1 and S2, no gallops, no murmurs, no rubs ABDOMEN: Soft, nontender. No hepatosplenomegaly, normal bowel sounds, no guarding or rigidity. EXTREMITIES: No clubbing, no edema, no cyanosis, 2+ pulses and upper and lower extremities. MUSCULOSKELETAL: Muscle strength and tone normal. SPINE: No scoliosis or deformity SKIN: No rashes CENTRAL NERVOUS SYSTEM: Alert and oriented -3. No focal deficits, tone is normal in all 4 extremities. PSYCHIATRIC: Alert and oriented -3. Appropriate affect. Intact judgment and insight. - Labs CBC & Chem 7: 06/18/18 06:05 06/18/18 06:05 Labs: Abnormal Lab Results - Last 24 Hours (Table) 06/19/18 06/19/18 06/19/18 Range/Units 06:03 16:28 20:15 POC Glucose (mg/dL) 169 H 211 H (75-99) mg/dL Hemoglobin A1c 6.3 H (4.0-6.0) % 06/20/18 06/20/18 Range/Units 06:06 11:36 POC Glucose (mg/dL) 220 H 198 H (75-99) mg/dL Hemoglobin A1c (4.0-6.0) % Microbiology - Last 24 Hours (Table) 06/19/18 16:35 Gram Stain - Preliminary Sputum 06/17/18 14:05 Blood Culture - Preliminary Blood No Growth after 48 hours Assessment and Plan Plan: Assessment: #1. Acute on chronic hypoxemic respiratory failure multifactorial, related to exacerbation of chronic obstructive pulmonary disease and possible bronchopneumonia. #2. Metastatic squamous cell lung cancer, most recently there has been bony metastasis noted to the right aspect of T2, thoracic spine, currently on Opdivo. Nodule in the right lower lobe noted to be mildly enlarged, there was right paratracheal mediastinal nodule versus lymph node slightly enlarged, this could represent disease progression. he is status post robotic-assisted thoracoscopic right upper lobectomy and lymph node dissection, and chemotherapy, with recurrence of metastatic lung cancer #3. Hypertension, hyperlipidemia #4. Coronary artery disease with previous stenting #5. Anxiety, depression #7. Nicotine dependence, currently in remission #8. Hypothyroidism #9. GERD/Reflux Plan: Continue with current antibiotic coverage, we'll give the patient another dose of IV Lasix today, repeat chest x-ray in the morning, wean down FiO2, encouraged to breathing and coughing, okay to ambulate with oxygen. I performed a history & physical examination of the patient and discussed their management with my nurse practitioner, Shila Becerril. I reviewed the nurse practitioner's note and agree with the documented findings and plan of care. Lung sounds are positive for crackles at the left lower base. The findings and the impression was discussed with the patient. I attest to the documentation by the nurse practitioner. Time with Patient: Less than 30
[2018-06-20] MEDS: LEVOFLOXACIN 750 MG TAB PO SCH (16:19)
--- NOTE | 2018-06-20 16:43 | P.PN ---
Subjective Progress Note Date: 06/20/18 Principal diagnosis: Hypoxia and lung cancer. Oxygenation is improving. Objective - Vital Signs Vital signs: Vital Signs Temp 98.2 F 06/20/18 07:54 Pulse 93 06/20/18 16:00 Resp 16 06/20/18 16:00 BP 133/77 06/20/18 16:00 Pulse Ox 88 L 06/20/18 16:00 Intake & Output 06/19/18 06/20/18 06/20/18 18:59 06:59 18:59 Intake Total 842 520 Output Total 600 500 Balance 242 -500 520 Weight 92.6 kg Intake: Intake, IV Titration 140 160 Amount Lactated Ringers 1,000 ml 60 @ 10 mls/hr IV .Q24H [facility] Rx#:[id number] Piperacillin-Tazobactam 3 100 100 .375 gm In Sodium Chloride 0.9% 100 ml @ 25 mls/hr IVPB Q8HR [facility] Rx# :[id number] Sodium Chloride 0.9% 1, 40 000 ml @ 120 mls/hr IV . Q8H20M [facility] Rx#:[id number] Oral 702 360 Output: Urine 600 500 Other: # Voids 1 3 - Exam Gen: Mild distress, alert Head: NC, NT Neck: SUpple, no palpable adenopathy Mouth/mucus membranes dry, scant areas of thrush Lungs: Diminished throughout with coarse breath sounds, mild increased effort noted Heart: Tachycardia ABdomen: Soft, ND, NT Neuro: No sensory or motor deficits noted - Labs CBC & Chem 7: 06/18/18 06:05 06/18/18 06:05 Labs: Abnormal Lab Results - Last 24 Hours (Table) 06/19/18 06/20/18 06/20/18 Range/Units 20:15 06:06 11:36 POC Glucose (mg/dL) 211 H 220 H 198 H (75-99) mg/dL Microbiology - Last 24 Hours (Table) 06/17/18 14:05 Blood Culture - Preliminary Blood No Growth after 72 hours 06/19/18 16:35 Gram Stain - Preliminary Sputum Assessment and Plan Plan: Assessment and Recommendations: 1. Non-Small Cell Lung Cancer - Metastatic disease bone - Most recent treatment with immune therapy - Opdivo - this was December of 2017 therefore not related to acute hypoxia 2. Acute on Chronic Hypoxic Respiratory Failure: - Pulmonary is following - Continue supportive care with steroids, PPI, Antibiotics, and Bronchodilators - This is likely related to exacerbation COPD. Physician Attest: I have completed the full history and physical and devloped the complete impression and plan, agree with above, dictated as a scribe
[2018-06-20 17:00] LABS: Glucose,Whole Blood 219 mg/dL (75-99)
[2018-06-20] MEDS: GABAPENTIN 100 MG CAP PO SCH (20:32)
[2018-06-20] MEDS: CHOLECALCIFEROL 1,000 UNIT TAB PO SCH (20:32)
[2018-06-20] MEDS: ALPRAZolam 0.5 MG TAB PO PRN (20:33)
[2018-06-20] MEDS: PANTOPRAZOLE 40 MG TABLET PO SCH (20:33)
[2018-06-20 20:37] LABS: Glucose,Whole Blood 123 mg/dL (75-99)
[2018-06-21] MEDS: IPRATROPIUM-ALBUTEROL 3 ML NEB INHALATION SCH ×6 (00:28→20:32)
[2018-06-21] MEDS: HYDROmorphone 2 MG TAB PO PRN ×5 (04:22→21:15)
[2018-06-21] MEDS: methylPREDNISolone SOD SUCCI 40 MG/ML 1 ML VIAL IV SCH ×4 (04:22→23:10)
[2018-06-21 06:12] LABS: Glucose,Whole Blood 198 mg/dL (75-99)
[2018-06-21] MEDS: LACTATED RINGERS 1,000 ML IV SCH (06:41)
[2018-06-21] MEDS: INSULIN ASPART (NovoLOG) 100 UNIT/ML VIAL SQ SCH ×4 (06:49→21:16)
--- NOTE | 2018-06-21 06:52 | XR ---
EXAMINATION TYPE: XR chest 2V DATE OF EXAM: 06/21/2018 COMPARISON: Chest x-ray 3 days and on older studies. CT chest 10 days ago. HISTORY: Shortness of breath TECHNIQUE: Frontal and lateral views of the chest are obtained. FINDINGS: The cardiac silhouette size is stable and enlarged with ectatic aorta causing slight rightw rupa tracheal deviation redemonstrated. There is persistent elevated right hemidiaphragm and chronic e mphysematous change with persistent left lower lung reticulonodular opacities. No large pleural effus ion or pneumothorax is seen bilaterally. Cholecystectomy clips are redemonstrated. Osseous structures are intact. IMPRESSION: Chronic emphysematous and parenchymal change and cardiomegaly with elevated right hemidi aphragm all are redemonstrated. Acute reticulonodular infiltrates left lower lung are felt present, n ot significantly changed from most recent chest x-ray.
--- NOTE | 2018-06-21 07:36 | PN ---
PROGRESS NOTE DATE OF SERVICE: 06/20/2018 PRESENTING COMPLAINT: Short of breath. INTERVAL HISTORY: Patient admitted with possible pneumonia, COPD exacerbation, has underlying CA lung. Medications were adjusted yesterday. Breathing is better today. FR2 is down to about 7 L. Patient did tolerate some diet with less wheezing, slight less cough. REVIEW OF SYSTEMS: Done for constitutional, cardiovascular, GI, pulmonary; relevant findings as above. CURRENT MEDICATIONS: Reviewed that include DuoNeb q.4, Norvasc, Eliquis, inhaled Pulmicort, Celexa, fentanyl patch, Neurontin, p.o. Levaquin, Zestril, Solu-Medrol 60 q.6, IV Zosyn, Requip. PHYSICAL EXAMINATION: Temperature 98.2, pulse 80, respiration 18, blood pressure 116/68, on 8 L. GENERAL: Sitting up, short of breath at rest. EYES: Clear, conjunctivae normal. NECK: JVD unable to assess. Mass not palpable. RESPIRATORY: Effort increased. LUNGS: Diminished breath sounds. Prolonged expiration, right basal crackles. CARDIOVASCULAR: First and second sounds normal, no edema. ABDOMEN: Distended soft. Liver and spleen not palpable. PSYCHIATRY: Alert and oriented x3. Mood and affect normal. INVESTIGATIONS: Accu-Cheks are noted. ASSESSMENT: 1. Acute severe chronic obstructive pulmonary disease exacerbation, slow to respond. 2. Possible pneumonia, suspect gram-negative organism. 3. Acute on chronic hypoxic respiratory failure, requiring high-flow oxygen on 8 L. 4. Metastatic squamous cell cancer with bony metastasis in the region of T12 thoracic spine, currently on OptiVol with disease progression. 5. Status post thorascopic right upper lobe lobectomy and lymph node dissection with chemotherapy, recurrence of metastatic lung cancer. 6. Essential hypertension. 7. Hyperlipidemia. 8. Coronary artery with prior stents. 9. Anxiety and depression, not otherwise specified. 10.Hypothyroidism. 11.Gastroesophageal reflux disease. 12.Chronically elevated right diaphragm. 13.Restless legs syndrome. 14.Benign prostatic hypertrophy. 15.Coronary artery disease, prior history of stent to the RCA in 2007. 16.Paroxysmal atrial fibrillation. The patient is chronically on Eliquis. PLAN: Care was discussed with the patient. Prognosis is guarded. Continue current medication and treatment plan. Patient doing a shade better though still quite a bit short of breath. Will check repeat patient's BNP and also check a procalcitonin level. Will follow. MMODL / IJN: [id number] /
[2018-06-21] MEDS: LISINOPRIL 10 MG TAB PO SCH (08:07)
[2018-06-21] MEDS: THIAMINE 100 MG TAB PO SCH (08:07)
[2018-06-21] MEDS: CITALOPRAM HYDROBROMIDE 20 MG TAB PO SCH (08:07)
[2018-06-21] MEDS: amLODIPine 5 MG TAB PO SCH (08:07)
[2018-06-21] MEDS: APIXABAN 5 MG TAB PO SCH ×2 (08:07→21:15)
[2018-06-21] MEDS: PIPERACILLIN-TAZOBACTAM 3.375 GM in SODIUM CHLORIDE 0.9% 100 ML IVPB SCH ×3 (08:08→23:10)
[2018-06-21 08:34] LABS: Anion Gap 8 mmol/L; Blood Urea Nitrogen 24 mg/dL (9-20); Calcium 9.4 mg/dL (8.4-10.2); Carbon Dioxide 31 mmol/L (22-30); Chloride 98 mmol/L (98-107); Glucose 175 mg/dL (74-99); Potassium 4.1 mmol/L (3.5-5.1); Sodium 137 mmol/L (137-145)
[2018-06-21] MEDS: BUDESONIDE 1 MG/2 ML NEBU INHALATION SCH ×2 (09:42→20:32)
[2018-06-21] MEDS: FORMOTEROL FUMARATE 20 MCG/2 ML NEBU INHALATION SCH ×2 (09:42→20:32)
--- NOTE | 2018-06-21 11:32 | P.PN ---
Subjective Progress Note Date: 06/21/18 Principal diagnosis: COPD exacerbation Patient reports he was able to ambulate in hallways today - O2 around 88% when doing this. Still on 8L of high-flow. Notes he has had a couple bloody noses. His rib pain is reasonably well controlled on current regimen 2-07/12 pain. Objective - Vital Signs Vital signs: Vital Signs Temp 97.7 F 06/21/18 08:04 Pulse 84 06/21/18 10:10 Resp 20 06/21/18 08:04 BP 139/70 06/21/18 08:04 Pulse Ox 89 L 06/21/18 08:04 Intake & Output 06/20/18 06/21/18 06/21/18 18:59 06:59 18:59 Intake Total 1000 240 Output Total 400 Balance 1000 -400 240 Weight 93.5 kg Intake: Intake, IV Titration 160 Amount Lactated Ringers 1,000 ml 60 @ 10 mls/hr IV .Q24H [facility] Rx#:[id number] Piperacillin-Tazobactam 3 100 .375 gm In Sodium Chloride 0.9% 100 ml @ 25 mls/hr IVPB Q8HR [facility] Rx# :[id number] Oral 840 240 Output: Urine 400 Other: Voiding Method Urinal Urinal # Voids 3 1 - Constitutional General appearance: Present: average body habitus, no acute distress - EENT Eyes: Present: EOMI, PERRLA ENT: Present: hearing grossly normal - Neck Neck: Absent: lymphadenopathy - Respiratory Respiratory: right: CTA, left: rhonchi - Cardiovascular Rhythm: regular - Gastrointestinal General gastrointestinal: Absent: tenderness - Integumentary Integumentary: Absent: calor, flushed - Neurologic Neurologic: Present: CNII-XII intact - Psychiatric Psychiatric: Present: A&O x's 3, appropriate affect - Labs CBC & Chem 7: 06/18/18 06:05 06/21/18 06:58 Labs: Abnormal Lab Results - Last 24 Hours (Table) 06/20/18 06/20/18 06/20/18 Range/Units 11:36 16:59 20:34 Carbon Dioxide (22-30) mmol/L BUN (9-20) mg/dL Glucose (74-99) mg/dL POC Glucose (mg/dL) 198 H 219 H 123 H (75-99) mg/dL 06/21/18 06/21/18 Range/Units 06:10 06:58 Carbon Dioxide 31 H (22-30) mmol/L BUN 24 H (9-20) mg/dL Glucose 175 H (74-99) mg/dL POC Glucose (mg/dL) 198 H (75-99) mg/dL Microbiology - Last 24 Hours (Table) 06/19/18 16:35 Gram Stain - Final Sputum Sputum Culture - Final 06/17/18 14:05 Blood Culture - Preliminary Blood No Growth after 72 hours Assessment and Plan Plan: 73 year old male with metastatic squamous cell carcinoma of the right lung. He underwent previous radiotherapy to the right ribs and was planning on initiating further palliative treatment for rib pain this week, but was admitted due to COPD exacerbation. 1. Continue to hold XRT until patient's O2 level is weaned further (preference that he is not requiring hi-flow). His baseline is 3-3.5 L. He seems to be improving, we will continue to evaluate daily. 2. COPD exacerbation: Continue medical management. Time with Patient: Less than 30
[2018-06-21 11:39] LABS: Glucose,Whole Blood 139 mg/dL (75-99)
[2018-06-21] MEDS ORDERED: FUROSEMIDE 10 MG/ML 2 ML VIAL IV ONE (13:53)
[2018-06-21] MEDS: LEVOFLOXACIN 750 MG TAB PO SCH (15:10)
--- NOTE | 2018-06-21 15:51 | P.PN ---
Subjective Progress Note Date: 06/21/18 Principal diagnosis: Acute exacerbation of chronic obstructive pulmonary disease, interstitial pneumonitis, acute on chronic hypoxic respiratory failure, squamous cell carcinoma of the lung, stage IV This is 73-year-old white male patient with a history of squamous cell carcino ma of the lung, stage IV with recent treatment with Opdivo, who was admitted to the hospital on 06/17/2018 with complaints of worsening hypoxemic respiratory failure, apparently patient's O2 sat was in the 50s on his usual 5 L. Patient did not have any fever or chills or increased cough. No chest pain or palpitations. No nausea, vomiting or diarrhea. No swelling tenderness in lower extremities, chest x-ray showed pulmonary fibrosis, chronically elevated right hemidiaphragm. Follow-up chest x-ray yesterday on 06/18/2018 showed findings similar to the prior exam, interstitial lung disease, cardiomegaly, and elevated right hemidiaphragm. His most recent CT of the chest showed a nodule in the right lower lobe seems to have enlarged mildly compared 04/12/2018. There was right paratracheal mediastinal nodule Versus lymph node that was slightly enlarged, this could represent evidence of disease progression. There was an large lytic soft tissue mass at the right aspect of T2, there was redemonstration of right-sided rib fractures. Initial blood work showed leukocytosis, with a white blood cell count of 17.5, hemoglobin of 12.7, PT was 10.7, INR is 1.0, sodium was 1:30, potassium is 4.4, chloride was 94, renal profile was within normal limits, troponin was negative 1, urinalysis showed 3+ glucose, but no evidence of infection. Initially patient was placed on BiPAP, improved, yesterday we switched the patient to high flow nasal cannula, skin liters, currently down to 10 L per high flow pulse ox is 90%, he is afebrile, hemodynamically stable, lung sounds reveal coarse crackles at the left base posteriorly. Cultures showed no growth. Current antibiotic coverage with Leva tamie and Zosyn, IV Solu-Medrol, and nebulized bronchodilators. On 06/20/2016 patient seen in follow-up on selective care unit, FiO2 is down to 8 L per nasal cannula, patient was able to get up and take a shower today, lung sounds reveal some limited crackles over left lower base, but overall less c rackling on today's exam, no rhonchi, no wheezes, sputum and blood cultures are negative. On 06/21/2018 patient seen in follow-up on selective care unit, FiO2 down to 5 L, patient is breathing and feeling better, lung sounds reveal minimal crackles at the left lower base, no significant wheezing or coughing, axes around 89-90%, patient is afebrile, respirations are nonlabored, does become dyspneic with ambulation, but recovers easier. Patient is able to take a shower. He states he is tolerating activity better. Blood and sputum culture showed no growth, he was given a dose of Lasix for last 2 days, today's chest x-ray has been reviewed with Dr. Roldan and showed acute reticular nodular infiltrates in the left lower lung no significant changed from previous chest x-ray. Objective - Vital Signs Vital signs: Vital Signs Temp 98.2 F 06/21/18 12:00 Pulse 90 06/21/18 12:00 Resp 20 06/21/18 12:00 BP 146/78 06/21/18 12:00 Pulse Ox 89 L 06/21/18 12:00 Intake & Output 06/20/18 06/21/18 06/21/18 18:59 06:59 18:59 Intake Total 1000 480 Output Total 400 240 Balance 1000 -400 240 Weight 93.5 kg Intake: Intake, IV Titration 160 Amount Lactated Ringers 1,000 ml 60 @ 10 mls/hr IV .Q24H [facility] Rx#:[id number] Piperacillin-Tazobactam 3 100 .375 gm In Sodium Chloride 0.9% 100 ml @ 25 mls/hr IVPB Q8HR [facility] Rx# :[id number] Oral 840 480 Output: Urine 400 240 Other: Voiding Method Urinal Urinal # Voids 3 1 - Exam GENERAL EXAM: Alert, pleasant, 73-year-old male patient, currently on L per high flow nasal cannula comfortable in no apparent distress. HEAD: Normocephalic/atraumatic. EYES: Normal reaction of pupils, equal size. Conjunctiva pink, sclera white. NOSE: Clear with pink turbinates. THROAT: No erythema or exudates. NECK: No masses, no JVD, no thyroid enlargement, no adenopathy. CHEST: No chest wall deformity. Symmetrical expansion. LUNGS: Equal air entry with minimal respiratory crackles over left lower base posteriorly CVS: Regular rate and rhythm, normal S1 and S2, no gallops, no murmurs, no rubs ABDOMEN: Soft, nontender. No hepatosplenomegaly, normal bowel sounds, no guarding or rigidity. EXTREMITIES: No clubbing, no edema, no cyanosis, 2+ pulses and upper and lower extremities. MUSCULOSKELETAL: Muscle strength and tone normal. SPINE: No scoliosis or deformity SKIN: No rashes CENTRAL NERVOUS SYSTEM: Alert and oriented -3. No focal deficits, tone is normal in all 4 extremities. PSYCHIATRIC: Alert and oriented -3. Appropriate affect. Intact judgment and insight. - Labs CBC & Chem 7: 06/18/18 06:05 06/21/18 06:58 Labs: Abnormal Lab Results - Last 24 Hours (Table) 06/20/18 06/20/18 06/21/18 Range/Units 16:59 20:34 06:10 Carbon Dioxide (22-30) mmol/L BUN (9-20) mg/dL Glucose (74-99) mg/dL POC Glucose (mg/dL) 219 H 123 H 198 H (75-99) mg/dL 06/21/18 06/21/18 Range/Units 06:58 11:38 Carbon Dioxide 31 H (22-30) mmol/L BUN 24 H (9-20) mg/dL Glucose 175 H (74-99) mg/dL POC Glucose (mg/dL) 139 H (75-99) mg/dL Microbiology - Last 24 Hours (Table) 06/19/18 16:35 Gram Stain - Final Sputum Sputum Culture - Final 06/17/18 14:05 Blood Culture - Preliminary Blood No Growth after 72 hours Assessment and Plan Plan: Assessment: #1. Acute on chronic hypoxemic respiratory failure multifactorial, related to exacerbation of chronic obstructive pulmonary disease and possible bronchopn eumonia. #2. Metastatic squamous cell lung cancer, most recently there has been bony metastasis noted to the right aspect of T2, thoracic spine, currently on Opdivo. Nodule in the right lower lobe noted to be mildly enlarged, there was right paratracheal mediastinal nodule versus lymph node slightly enlarged, this could represent disease progression. he is status post robotic-assisted thoracoscopic right upper lobectomy and lymph node dissection, and chemotherapy, with recurrence of metastatic lung cancer #3. Hypertension, hyperlipidemia #4. Coronary artery disease with previous stenting #5. Anxiety, depression #7. Nicotine dependence, currently in remission #8. Hypothyroidism #9. GERD/Reflux Plan: Continue weaning FiO2, depicting and coughing, today's chest x-ray has been reviewed with Dr. Roldan, shows persistence of left lower lobe infiltrate, no significant change, clinically patient is improving, no fever or chills. We'll give the patient additional dose of IV Lasix today, repeat chest x-ray in the morning. I performed a history & physical examination of the patient and discussed their management with my nurse practitioner, Shila Becerril. I reviewed the nurse practitioner's note and agree with the documented findings and plan of care. Lung sounds are positive for crackles at the left lower base. The findings and the impression was discussed with the patient. I attest to the documentation by the nurse practitioner. Time with Patient: Less than 30
[2018-06-21 16:48] LABS: Glucose,Whole Blood 158 mg/dL (75-99)
[2018-06-21 20:14] LABS: Glucose,Whole Blood 171 mg/dL (75-99)
[2018-06-21] MEDS: CHOLECALCIFEROL 1,000 UNIT TAB PO SCH (21:14)
[2018-06-21] MEDS: PANTOPRAZOLE 40 MG TABLET PO SCH (21:15)
[2018-06-21] MEDS: GABAPENTIN 100 MG CAP PO SCH (21:15)
--- NOTE | 2018-06-21 22:36 | P.PN ---
Subjective Progress Note Date: 06/21/18 Principal diagnosis: Hypoxia and lung cancer. Oxygenation is improving. Remains on 8L of HI pramod, attempted ambulation inhall today, although he did desaturate. He was suppose to begin radiation therapy for palliative intent to right rib, although this is currently on hold until acute on chronic hypoxia improves Objective - Vital Signs Vital signs: Vital Signs Temp 98.2 F 06/21/18 15:41 Pulse 101 H 06/21/18 20:55 Resp 18 06/21/18 20:55 BP 116/70 06/21/18 15:41 Pulse Ox 90 L 06/21/18 16:15 Intake & Output 06/21/18 06/21/18 06/22/18 06:59 18:59 06:59 Intake Total 720 Output Total 400 240 Balance -400 480 Weight 93.5 kg Intake: Oral 720 Output: Urine 400 240 Other: Voiding Method Urinal Urinal # Voids 1 2 - Exam Gen: Mild distress, alert Head: NC, NT Neck: SUpple, no palpable adenopathy Mouth/mucus membranes dry, scant areas of thrush Lungs: Diminished throughout with coarse breath sounds, mild increased effort noted Heart: Tachycardia ABdomen: Soft, ND, NT Neuro: No sensory or motor deficits noted - Labs CBC & Chem 7: 06/18/18 06:05 06/21/18 06:58 Labs: Abnormal Lab Results - Last 24 Hours (Table) 06/21/18 06/21/18 06/21/18 Range/Units 06:10 06:58 06:58 Carbon Dioxide 31 H (22-30) mmol/L BUN 24 H (9-20) mg/dL Glucose 175 H (74-99) mg/dL POC Glucose (mg/dL) 198 H (75-99) mg/dL Procalcitonin 0.23 H (0.02-0.09) ng/mL 06/21/18 06/21/18 06/21/18 Range/Units 11:38 16:46 20:13 Carbon Dioxide (22-30) mmol/L BUN (9-20) mg/dL Glucose (74-99) mg/dL POC Glucose (mg/dL) 139 H 158 H 171 H (75-99) mg/dL Procalcitonin (0.02-0.09) ng/mL Microbiology - Last 24 Hours (Table) 06/17/18 14:05 Blood Culture - Preliminary Blood No Growth after 96 hours 06/19/18 16:35 Gram Stain - Final Sputum Sputum Culture - Final Assessment and Plan Plan: Assessment and Recommendations: 1. Non-Small Cell Lung Cancer - Metastatic disease bone - Most recent treatment with immune therapy - Opdivo - this was December of 2017 therefore not related to acute hypoxia - Was suppose to begin radiation therapy to right rib for palliative intent although with hospitalization this is on hols - Radiation Onc following 2. Acute on Chronic Hypoxic Respiratory Failure: - Pulmonary is following - Continue supportive care with steroids, PPI, Antibiotics, and Bronchodilators - This is likely related to exacerbation COPD. Physician Attest: I have completed the full history and physical and devloped the complete impression and plan, agree with above, dictated as a scribe
[2018-06-21] MEDS: ALPRAZolam 0.5 MG TAB PO PRN (23:09)
--- NOTE | 2018-06-21 23:42 | PN ---
PROGRESS NOTE DATE OF SERVICE: 06/21/2018 PRESENTING COMPLAINT: Short of breath. INTERVAL HISTORY: Patient admitted with pneumonia, COPD exacerbation, has underlying lung CA. Breathing is getting better, down to about 5 L of high-flow nasal cannula. Did walk in the hallway. Did tolerate some diet. Slightly less wheezing. Some cough is present. REVIEW OF SYSTEMS: Done for constitutional, cardiovascular, GI, pulmonary; relevant findings as above. CURRENT MEDICATIONS: Reviewed that include DuoNeb, Eliquis, IV Solu-Medrol 40 q.8, Levaquin and IV Zosyn. PHYSICAL EXAMINATION: VITAL SIGNS: Temperature 98.2, pulse 92, respiration 20, blood pressure 116/70. Pulse ox 98% on 5 L. GENERAL APPEARANCE: Sitting up, short of breath, but better than before. EYES: Pupils equal. Conjunctivae normal. NECK: JVD not raised. Mass not palpable. RESPIRATORY: Effort increased. LUNGS: Decreased breath sounds. Decreased crackles. Wheezing. CARDIOVASCULAR: 1st and 2nd sounds normal. No edema. ABDOMEN: Distended, soft. Liver and spleen not palpable. PSYCHIATRY: Alert and oriented x3. Mood and affect normal. INVESTIGATIONS: Accu-Cheks 221, 98, 219. Chest x-ray film personally reviewed by me shows some fullness in the angles. ASSESSMENT: 1. Acute severe chronic obstructive pulmonary disease exacerbation, slow to respond. 2. Possible pneumonia suspect gram-negative organism. 3. Acute on chronic hypoxic respiratory failure, requiring high-flow oxygen, currently down to 5 L. 4. 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 5. Status post thoracoscopy, right upper lobe lobectomy and lymph node dissection with chemotherapy recurrence of metastatic lung cancer. 6. Essential hypertension. 7. Hyperlipidemia. 8. Coronary artery disease with prior stents. 9. Anxiety and depression, not otherwise specified. 10.Hypothyroidism. 11.Gastroesophageal reflux disease. 12.Chronically elevated right diaphragm. 13.Restless legs syndrome. 14.Benign prostatic hypertrophy. 15.Coronary artery disease prior history of stent to the RCA in 2007. 16.Paroxysmal atrial fibrillation, patient chronically on insulin. Care was discussed with the patient at length. The patient is slowly responding. Continue current medication and treatment plan. Patient's procalcitonin level was noted to be up at 0.23. Will give one dose of IV Lasix in the morning. MMODL / IJN: [id number] /
[2018-06-22] MEDS: IPRATROPIUM-ALBUTEROL 3 ML NEB INHALATION SCH ×6 (00:14→19:44)
[2018-06-22] MEDS: HYDROmorphone 2 MG TAB PO PRN ×6 (03:57→21:28)
[2018-06-22 06:24] LABS: Glucose,Whole Blood 169 mg/dL (75-99)
[2018-06-22] MEDS: INSULIN ASPART (NovoLOG) 100 UNIT/ML VIAL SQ SCH ×4 (06:37→21:24)
[2018-06-22] MEDS: ACETAMINOPHEN TAB 325 MG TAB PO PRN (06:43)
[2018-06-22 06:54] LABS: HCT 40.9 % (39.0-53.0); HGB 12.5 gm/dL (13.0-17.5); MCH 30.9 pg (25.0-35.0); MCHC 30.5 g/dL (31.0-37.0); MCV 101.4 fL (80.0-100.0); Macrocytosis Slight; Mean Platelet Volume 7.7; Platelet Count 311 k/uL (150-450); RBC 4.04 m/uL (4.30-5.90); RDW 13.3 % (11.5-15.5); WBC 19.2 k/uL (3.8-10.6)
[2018-06-22 07:15] LABS: Anion Gap 5 mmol/L; Blood Urea Nitrogen 24 mg/dL (9-20); Calcium 9.6 mg/dL (8.4-10.2); Carbon Dioxide 33 mmol/L (22-30); Chloride 99 mmol/L (98-107); Glucose 170 mg/dL (74-99); Potassium 4.4 mmol/L (3.5-5.1); Sodium 137 mmol/L (137-145)
[2018-06-22 07:38] LABS: Band Neutrophils % 3 %; Lymphocytes # (M) 0.96 k/uL (1.0-4.8); Metamyelocytes # (M) 1.15 k/uL (0); Metamyelocytes % 6 %; Monocytes # (M) 0.96 k/uL (0-1.0); Myelocytes # (M) 1.34 k/uL (0); Myelocytes % 7 %; Neutrophils % (M) 76 %; Nucleated Red Blood Cells 0 /100 WBC (0-0); Total Cells Counted 200
[2018-06-22 07:39] LABS: Toxic Granulation Present
[2018-06-22 07:40] LABS: Poikilocytosis (M) Present
[2018-06-22] MEDS: LACTATED RINGERS 1,000 ML IV SCH (07:49)
[2018-06-22] MEDS ORDERED: FUROSEMIDE 10 MG/ML 4 ML VIAL IV ONE (08:00)
--- NOTE | 2018-06-22 08:03 | XR ---
EXAMINATION TYPE: XR chest 2V DATE OF EXAM: 06/22/2018 COMPARISON: 06/21/2018 HISTORY: 73 year-old male shortness of breath TECHNIQUE: PA and lateral views FINDINGS: Very low lung volumes and vascular markings. Reticular densities are present mid and lower lungs, lef t greater than right with more confluent change left lower lung. No sizable effusion. IMPRESSION: Underlying emphysema and very low lung volumes with persistent interstitial infiltrate left mid and l ower lung.
[2018-06-22] MEDS: PIPERACILLIN-TAZOBACTAM 3.375 GM in SODIUM CHLORIDE 0.9% 100 ML IVPB SCH ×2 (08:07→15:48)
[2018-06-22] MEDS: LISINOPRIL 10 MG TAB PO SCH (08:08)
[2018-06-22] MEDS: methylPREDNISolone SOD SUCCI 40 MG/ML 1 ML VIAL IV SCH ×2 (08:08→17:50)
[2018-06-22] MEDS: THIAMINE 100 MG TAB PO SCH (08:08)
[2018-06-22] MEDS: CITALOPRAM HYDROBROMIDE 20 MG TAB PO SCH (08:08)
[2018-06-22] MEDS: APIXABAN 5 MG TAB PO SCH ×2 (08:08→21:24)
[2018-06-22] MEDS: amLODIPine 5 MG TAB PO SCH (08:08)
[2018-06-22] MEDS: BUDESONIDE 1 MG/2 ML NEBU INHALATION SCH ×2 (08:36→19:44)
[2018-06-22] MEDS: FORMOTEROL FUMARATE 20 MCG/2 ML NEBU INHALATION SCH ×2 (08:36→19:44)
[2018-06-22 11:37] LABS: Glucose,Whole Blood 153 mg/dL (75-99)
[2018-06-22] MEDS: LEVOFLOXACIN 750 MG TAB PO SCH (12:13)
--- NOTE | 2018-06-22 17:21 | P.PN ---
Subjective Progress Note Date: 06/22/18 Principal diagnosis: Acute exacerbation of chronic obstructive pulmonary disease, interstitial pneumonitis, acute on chronic hypoxic respiratory failure, squamous cell carcinoma lung, stage IV This is 73-year-old white male patient with a history of squamous cell carcinoma of the lung, stage IV with recent treatment with Opdivo, who was admitted to the hospital on 06/17/2018 with complaints of worsening hypoxemic respiratory failure, apparently patient's O2 sat was in the 50s on his usual 5 L. Patient did not have any fever or chills or increased cough. No chest pain or palpitations. No nausea, vomiting or diarrhea. No swelling tenderness in lower extremities, chest x-ray showed pulmonary fibrosis, chronically elevated right hemidiaphragm. Follow-up chest x-ray yesterday on 06/18/2018 showed findings similar to the prior exam, interstitial lung disease, cardiomegaly, and elevated right hemidiaphragm. His most recent CT of the chest showed a nodule in the right lower lobe seems to have enlarged mildly compared 04/12/2018. There was right paratracheal mediastinal nodule Versus lymph node that was slightly enlarged, this could represent evidence of disease progression. There was an large lytic soft tissue mass at the right aspect of T2, there was redemo nstration of right-sided rib fractures. Initial blood work showed leukocytosis, with a white blood cell count of 17.5, hemoglobin of 12.7, PT was 10.7, INR is 1.0, sodium was 1:30, potassium is 4.4, chloride was 94, renal profile was within normal limits, troponin was negative 1, urinalysis showed 3+ glucose, but no evidence of infection. Initially patient was placed on BiPAP, improved, yesterday we switched the patient to high flow nasal cannula, skin liters, currently down to 10 L per high flow pulse ox is 90%, he is afebrile, hemodynamically stable, lung sounds reveal coarse crackles at the left base posteriorly. Cultures showed no growth. Current antibiotic coverage with Levaquin and Zosyn, IV Solu-Medrol, and nebulized bronchodilators. On 06/20/2016 patient seen in follow-up on selective care unit, FiO2 is down to 8 L per nasal cannula, patient was able to get up and take a shower today, lung sounds reveal some limited crackles over left lower base, but overall less crackling on today's exam, no rhonchi, no wheezes, sputum and blood cultures are negative. On 06/21/2018 patient seen in follow-up on selective care unit, FiO2 down to 5 L, patient is breathing and feeling better, lung sounds reveal minimal crackles at the left lower base, no significant wheezing or coughing, axes around 89-90%, patient is afebrile, respirations are nonlabored, does become dyspneic with ambulation, but recovers easier. Patient is able to take a shower. He states he is tolerating activity better. Blood and sputum culture showed no growth, he was given a dose of Lasix for last 2 days, today's chest x-ray has been reviewed with Dr. Roldan and showed acute reticular nodular infiltrates in the left lower lung no significant changed from previous chest x-ray. The patient is seen today 06/22/2018 in follow-up on the selective care unit. He is awake and alert in no acute distress. He is breathing better today as compared to yesterday. Nearly back to his baseline. We've titrated down the FiO2 to 3 L/m per nasal cannula which is his home and baseline. He remains afebrile. Hemodynamically stable. Blood and sputum cultures reveal no growth. White count 19.2. Hemoglobin 12.5. Creatinine 0.78. He remains on DuoNeb inhalations, Pulmicort and Perforomist, IV Solu-Medrol. Antibiotics in the form of Zosyn. Endocrine related with Eliquis. Chest x-ray reveals underlying emphysema with very low lung volumes and persistent interstitial infiltrate in the left mid and lower lung. Objective - Vital Signs Vital signs: Vital Signs Temp 98.5 F 06/22/18 11:11 Pulse 80 06/22/18 16:00 Resp 18 06/22/18 16:00 BP 130/74 06/22/18 11:11 Pulse Ox 92 L 06/22/18 11:11 Intake & Output 06/21/18 06/22/18 06/22/18 18:59 06:59 18:59 Intake Total 720 100 620 Output Total 240 400 Balance 480 100 220 Weight 93.8 kg Intake: IV 130 Lactated Ringers 1,000 ml 30 @ 10 mls/hr IV .Q24H [facility] Rx#:[id number] Piperacillin-Tazobactam 3 100 .375 gm In Sodium Chloride 0.9% 100 ml @ 25 mls/hr IVPB Q8HR [facility] Rx# :[id number] Intake, IV Titration 100 Amount Piperacillin-Tazobactam 3 100 .375 gm In Sodium Chloride 0.9% 100 ml @ 25 mls/hr IVPB Q8HR [facility] Rx# :[id number] Oral 720 490 Output: Urine 240 400 Other: Voiding Method Urinal Urinal Urinal # Voids 2 1 1 - Exam GENERAL EXAM: Alert, pleasant, 73-year-old male patient, currently on 3L per high flow nasal cannula comfortable in no apparent distress. HEAD: Normocephalic/atraumatic. EYES: Normal reaction of pupils, equal size. Conjunctiva pink, sclera white. NOSE: Clear with pink turbinates. THROAT: No erythema or exudates. NECK: No masses, no JVD, no thyroid enlargement, no adenopathy. CHEST: No chest wall deformity. Symmetrical expansion. LUNGS: Equal air entry with minimal respiratory crackles over left lower base posteriorly CVS: Regular rate and rhythm, normal S1 and S2, no gallops, no murmurs, no rubs ABDOMEN: Soft, nontender. No hepatosplenomegaly, normal bowel sounds, no guarding or rigidity. EXTREMITIES: No clubbing, no edema, no cyanosis, 2+ pulses and upper and lower extremities. MUSCULOSKELETAL: Muscle strength and tone normal. SPINE: No scoliosis or deformity SKIN: No rashes CENTRAL NERVOUS SYSTEM: Alert and oriented -3. No focal deficits, tone is normal in all 4 extremities. PSYCHIATRIC: Alert and oriented -3. Appropriate affect. Intact judgment and insight. - Labs CBC & Chem 7: 06/22/18 06:01 06/22/18 06:01 Labs: Abnormal Lab Results - Last 24 Hours (Table) 06/21/18 06/22/18 06/22/18 Range/Units 20:13 06:01 06:01 WBC 19.2 H (3.8-10.6) k/uL RBC 4.04 L (4.30-5.90) m/uL Hgb 12.5 L (13.0-17.5) gm/dL MCV 101.4 H (80.0-100.0) fL MCHC 30.5 L (31.0-37.0) g/dL Neutrophils # (Manual) 15.10 H (1.3-7.7) k/uL Lymphocytes # (Manual) 0.96 L (1.0-4.8) k/uL Metamyelocytes # (Man) 1.15 H (0) k/uL Myelocytes # (Manual) 1.34 H (0) k/uL Carbon Dioxide 33 H (22-30) mmol/L BUN 24 H (9-20) mg/dL Glucose 170 H (74-99) mg/dL POC Glucose (mg/dL) 171 H (75-99) mg/dL 06/22/18 06/22/18 Range/Units 06:22 11:28 WBC (3.8-10.6) k/uL RBC (4.30-5.90) m/uL Hgb (13.0-17.5) gm/dL MCV (80.0-100.0) fL MCHC (31.0-37.0) g/dL Neutrophils # (Manual) (1.3-7.7) k/uL Lymphocytes # (Manual) (1.0-4.8) k/uL Metamyelocytes # (Man) (0) k/uL Myelocytes # (Manual) (0) k/uL Carbon Dioxide (22-30) mmol/L BUN (9-20) mg/dL Glucose (74-99) mg/dL POC Glucose (mg/dL) 169 H 153 H (75-99) mg/dL Microbiology - Last 24 Hours (Table) 06/17/18 14:05 Blood Culture - Preliminary Blood No Growth after 120 hours Assessment and Plan Assessment: Assessment: #1. Acute on chronic hypoxemic respiratory failure multifactorial, related to exacerbation of chronic obstructive pulmonary disease and possible bronchopneum onia. #2. Metastatic squamous cell lung cancer, most recently there has been bony metastasis noted to the right aspect of T2, thoracic spine, currently on Opdivo. Nodule in the right lower lobe noted to be mildly enlarged, there was right paratracheal mediastinal nodule versus lymph node slightly enlarged, this could represent disease progression. he is status post robotic-assisted thoracoscopic right upper lobectomy and lymph node dissection, and chemotherapy, with recurrence of metastatic lung cancer #3. Hypertension, hyperlipidemia #4. Coronary artery disease with previous stenting #5. Anxiety, depression #7. Nicotine dependence, currently in remission #8. Hypothyroidism #9. GERD/Reflux Plan: The patient was seen and evaluated by Dr. Roldan. Chest x-ray and labs were reviewed. We'll continue with his current treatment plan for now. Probable home in the morning. Recommend starting radiation therapy to his back next week. We'll continue to follow make further recommendations based on his clinical status. I, the cosigning physician, performed a history & physical examination of the patient. Lungs sounds scattered rhonchi, end expiratory wheeze. Maintaining good O2 saturations in the 90s on 3 L/m per nasal cannula. I discussed the ass essment and plan of care with my nurse practitioner, Delfina Cummings. I attest to the above note as dictated by her.
[2018-06-22 17:30] LABS: Glucose,Whole Blood 138 mg/dL (75-99)
[2018-06-22 20:29] LABS: Glucose,Whole Blood 181 mg/dL (75-99)
[2018-06-22] MEDS: GABAPENTIN 100 MG CAP PO SCH (21:24)
[2018-06-22] MEDS: CHOLECALCIFEROL 1,000 UNIT TAB PO SCH (21:24)
[2018-06-22] MEDS: PANTOPRAZOLE 40 MG TABLET PO SCH (21:24)
[2018-06-22] MEDS: predniSONE 20 MG TAB PO SCH (21:28)
[2018-06-22] MEDS: ALPRAZolam 0.5 MG TAB PO PRN (22:56)
--- NOTE | 2018-06-22 22:58 | PN ---
PROGRESS NOTE DATE OF SERVICE: 06/22/2018 PRESENTING COMPLAINT: Short of breath. INTERVAL HISTORY: Patient admitted with pneumonia, COPD exacerbation, has underlying lung cancer. Breathing is improving. Down to 4 L nasal cannula. Patient did get a dose of IV Lasix this morning. Diuresed well, feeling better since then, walking better. Diet is improving. REVIEW OF SYSTEMS: Done for constitutional, cardiovascular, GI, pulmonary; relevant findings as above. CURRENT MEDICATIONS: Reviewed. They include: 1. DuoNeb. 2. Eliquis. 3. Inhaled Pulmicort. 4. IV Solu-Medrol. 5. IV Zosyn. PHYSICAL EXAMINATION: Temperature 98.2, pulse 84, respiration 20, blood pressure 136/86, pulse ox 91%, now down to 3 L. GENERAL APPEARANCE: Sitting up. Breathing a bit better. EYES: Pupils equal. Conjunctivae normal. NECK: JVD not raised. Mass not palpable. RESPIRATORY: Effort increased. LUNGS: Improved air entry. Decreased wheezing. CARDIOVASCULAR: First and second sounds normal. No edema. ABDOMEN: Soft, non-tender. Liver and spleen not palpable. PSYCHIATRY: Alert and oriented x3. Mood and affect normal. INVESTIGATIONS: White count 19.2, hemoglobin 12.5, platelets 311, potassium 4.1, BUN 24, creatinine 0.7. Accu-Cheks are noted. ASSESSMENT: 1. Acute severe chronic obstructive pulmonary disease exacerbation, responding. 2. Pneumonia. Suspect gram-negative organism. Responded well to antibiotic. 3. Acute on chronic hypoxic respiratory failure. Oxygen requirement coming down, now down to 3 L. 4. 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 5. Status post thoracoscopy, right upper lobectomy, lymph node dissection with chemotherapy, recurrence of metastatic lung cancer. 6. Essential hypertension. 7. Hyperlipidemia. 8. Coronary artery disease with prior history of stent. 9. Anxiety and depression not otherwise specified. 10.Hypothyroid. 11.Gastroesophageal reflux disease. 12.Chronically elevated right diaphragm. 13.Restless legs syndrome. 14.Benign prostatic hypertrophy. 15.Coronary artery disease with prior history of stent to the right coronary artery in 2007. 16.Paroxysmal atrial fibrillation. Patient is chronically on Eliquis. PLAN: Will switch the patient over to oral prednisone, discontinue the Zosyn. Patient is already on oral Levaquin. I did discuss with Dr. Roldan and Dr. Machado from Radiation Oncology. Patient's radiation to start next week. Hopefully patient can be discharged tomorrow. MMODL / IJN: [id number] /
[2018-06-23] MEDS: IPRATROPIUM-ALBUTEROL 3 ML NEB INHALATION SCH ×5 (01:06→16:07)
[2018-06-23] MEDS: HYDROmorphone 2 MG TAB PO PRN ×3 (02:08→12:35)
[2018-06-23 02:58] VITALS: RESP 22
[2018-06-23] MEDS: LACTATED RINGERS 1,000 ML IV SCH (05:06)
[2018-06-23] MEDS: ACETAMINOPHEN TAB 325 MG TAB PO PRN ×2 (05:25→09:09)
[2018-06-23 06:00] LABS: Glucose,Whole Blood 173 mg/dL (75-99)
[2018-06-23 06:37] LABS: Anion Gap 8 mmol/L; Blood Urea Nitrogen 24 mg/dL (9-20); Calcium 9.7 mg/dL (8.4-10.2); Carbon Dioxide 33 mmol/L (22-30); Chloride 95 mmol/L (98-107); Glucose 181 mg/dL (74-99); Potassium 4.2 mmol/L (3.5-5.1); Sodium 136 mmol/L (137-145)
[2018-06-23] MEDS: INSULIN ASPART (NovoLOG) 100 UNIT/ML VIAL SQ SCH ×2 (06:44→12:12)
[2018-06-23] MEDS: FORMOTEROL FUMARATE 20 MCG/2 ML NEBU INHALATION SCH (08:57)
[2018-06-23] MEDS: BUDESONIDE 1 MG/2 ML NEBU INHALATION SCH (08:57)
[2018-06-23 08:58] VITALS: TEMP 98.2
[2018-06-23] MEDS: predniSONE 20 MG TAB PO SCH (09:08)
[2018-06-23] MEDS: APIXABAN 5 MG TAB PO SCH (09:08)
[2018-06-23] MEDS: LISINOPRIL 10 MG TAB PO SCH (09:09)
[2018-06-23] MEDS: CITALOPRAM HYDROBROMIDE 20 MG TAB PO SCH (09:09)
[2018-06-23] MEDS: amLODIPine 5 MG TAB PO SCH (09:09)
[2018-06-23 11:15] VITALS: BMI 30.7
[2018-06-23 11:57] LABS: Glucose,Whole Blood 122 mg/dL (75-99)
[2018-06-23] MEDS: THIAMINE 100 MG TAB PO SCH (12:35)
[2018-06-23 13:39] VITALS: BP 127/74; PULSE 85
[2018-06-23] MEDS ORDERED: FUROSEMIDE 10 MG/ML 4 ML VIAL IV STA (14:07)
[2018-06-23] MEDS: LEVOFLOXACIN 750 MG TAB PO SCH (15:07)
--- NOTE | 2018-06-23 16:28 | P.PN ---
Subjective Progress Note Date: 06/23/18 Principal diagnosis: Acute exacerbation of chronic obstructive pulmonary disease, interstitial pneumonitis, acute on chronic hypoxic respiratory failure, squamous cell carcinoma lung, stage IV This is 73-year-old white male patient with a history of squamous cell carcinoma of the lung, stage IV with recent treatment with Opdivo, who was admitted to the hospital on 06/17/2018 with complaints of worsening hypoxemic respiratory failure, apparently patient's O2 sat was in the 50s on his usual 5 L. Patient did not have any fever or chills or increased cough. No chest pain or palpitations. No nausea, vomiting or diarrhea. No swelling tenderness in lower extremities, chest x-ray showed pulmonary fibrosis, chronically elevated right hemidiaphragm. Follow-up chest x-ray yesterday on 06/18/2018 showed findings similar to the prior exam, interstitial lung disease, cardiomegaly, and elevated right hemidiaphragm. His most recent CT of the chest showed a nodule in the right lower lobe seems to have enlarged mildly compared 04/12/2018. There was right paratracheal mediastinal nodule Versus lymph node that was slightly enlarged, this could represent evidence of disease progression. There was an large lytic soft tissue mass at the right aspect of T2, there was redemo nstration of right-sided rib fractures. Initial blood work showed leukocytosis, with a white blood cell count of 17.5, hemoglobin of 12.7, PT was 10.7, INR is 1.0, sodium was 1:30, potassium is 4.4, chloride was 94, renal profile was within normal limits, troponin was negative 1, urinalysis showed 3+ glucose, but no evidence of infection. Initially patient was placed on BiPAP, improved, yesterday we switched the patient to high flow nasal cannula, skin liters, currently down to 10 L per high flow pulse ox is 90%, he is afebrile, hemodynamically stable, lung sounds reveal coarse crackles at the left base posteriorly. Cultures showed no growth. Current antibiotic coverage with Levaquin and Zosyn, IV Solu-Medrol, and nebulized bronchodilators. On 06/20/2016 patient seen in follow-up on selective care unit, FiO2 is down to 8 L per nasal cannula, patient was able to get up and take a shower today, lung sounds reveal some limited crackles over left lower base, but overall less crackling on today's exam, no rhonchi, no wheezes, sputum and blood cultures are negative. On 06/21/2018 patient seen in follow-up on selective care unit, FiO2 down to 5 L, patient is breathing and feeling better, lung sounds reveal minimal crackles at the left lower base, no significant wheezing or coughing, axes around 89-90%, patient is afebrile, respirations are nonlabored, does become dyspneic with ambulation, but recovers easier. Patient is able to take a shower. He states he is tolerating activity better. Blood and sputum culture showed no growth, he was given a dose of Lasix for last 2 days, today's chest x-ray has been reviewed with Dr. Roldan and showed acute reticular nodular infiltrates in the left lower lung no significant changed from previous chest x-ray. The patient is seen today 06/22/2018 in follow-up on the selective care unit. He is awake and alert in no acute distress. He is breathing better today as compared to yesterday. Nearly back to his baseline. We've titrated down the FiO2 to 3 L/m per nasal cannula which is his home and baseline. He remains afebrile. Hemodynamically stable. Blood and sputum cultures reveal no growth. White count 19.2. Hemoglobin 12.5. Creatinine 0.78. He remains on DuoNeb inhalations, Pulmicort and Perforomist, IV Solu-Medrol. Antibiotics in the form of Zosyn. Endocrine related with Eliquis. Chest x-ray reveals underlying emphysema with very low lung volumes and persistent interstitial infiltrate in the left mid and lower lung. The patient is seen today 06/23/2017 in follow-up on the selective care unit. He is currently sitting up in a chair at the bedside. Awake and alert in no acute distress. Feeling pretty much back to his baseline as far as his breathing is concerned. Maintaining O2 saturations in the 90s on 3 L/m per nasal cannula. His been afebrile. Hemodynamically stable. Blood cultures reveal no growth. Sputum culture reveals no growth. Sodium 136. Bicarb 33. Creatinine 0.75. He does have some continued lower extremity edema. We'll give one dose of IV Lasix 40 mg prior to his discharge. Objective - Vital Signs Vital signs: Vital Signs Temp 98.2 F 06/23/18 08:00 Pulse 84 06/23/18 13:19 Resp 22 06/23/18 12:00 BP 127/74 06/23/18 12:00 Pulse Ox 92 L 06/23/18 12:00 Intake & Output 06/22/18 06/23/18 06/23/18 18:59 06:59 18:59 Intake Total 1060 180 Output Total 700 650 Balance 360 -470 Weight 94.2 kg 94.2 kg Intake: IV 170 Lactated Ringers 1,000 ml 70 @ 10 mls/hr IV .Q24H [facility] Rx#:[id number] Piperacillin-Tazobactam 3 100 .375 gm In Sodium Chloride 0.9% 100 ml @ 25 mls/hr IVPB Q8HR [facility] Rx# :[id number] Oral 890 180 Output: Urine 700 650 Other: Voiding Method Urinal Urinal Urinal # Voids 1 1 - Exam GENERAL EXAM: Alert, pleasant, 73-year-old male patient, currently on 2L per high flow nasal cannula comfortable in no apparent distress. HEAD: Normocephalic/atraumatic. EYES: Normal reaction of pupils, equal size. Conjunctiva pink, sclera white. NOSE: Clear with pink turbinates. THROAT: No erythema or exudates. NECK: No masses, no JVD, no thyroid enlargement, no adenopathy. CHEST: No chest wall deformity. Symmetrical expansion. LUNGS: Equal air entry with minimal respiratory crackles over left lower base posteriorly CVS: Regular rate and rhythm, normal S1 and S2, no gallops, no murmurs, no rubs ABDOMEN: Soft, nontender. No hepatosplenomegaly, normal bowel sounds, no guarding or rigidity. EXTREMITIES: No clubbing, no edema, no cyanosis, 2+ pulses and upper and lower extremities. MUSCULOSKELETAL: Muscle strength and tone normal. SPINE: No scoliosis or deformity SKIN: No rashes CENTRAL NERVOUS SYSTEM: Alert and oriented -3. No focal deficits, tone is normal in all 4 extremities. PSYCHIATRIC: Alert and oriented -3. Appropriate affect. Intact judgment and insight. - Labs CBC & Chem 7: 06/22/18 06:01 06/23/18 05:57 Labs: Abnormal Lab Results - Last 24 Hours (Table) 06/22/18 06/22/18 06/23/18 Range/Units 17:06 20:27 05:57 Sodium 136 L (137-145) mmol/L Chloride 95 L (98-107) mmol/L Carbon Dioxide 33 H (22-30) mmol/L BUN 24 H (9-20) mg/dL Glucose 181 H (74-99) mg/dL POC Glucose (mg/dL) 138 H 181 H (75-99) mg/dL 06/23/18 06/23/18 Range/Units 05:58 11:41 Sodium (137-145) mmol/L Chloride (98-107) mmol/L Carbon Dioxide (22-30) mmol/L BUN (9-20) mg/dL Glucose (74-99) mg/dL POC Glucose (mg/dL) 173 H 122 H (75-99) mg/dL Microbiology - Last 24 Hours (Table) 06/17/18 14:05 Blood Culture - Final Blood No Growth after 144 hours Assessment and Plan Assessment: Assessment: #1. Acute on chronic hypoxemic respiratory failure multifactorial, related to exacerbation of chronic obstructive pulmonary disease and possible bronchopneumonia. #2. Metastatic squamous cell lung cancer, most recently there has been bony metastasis noted to the right aspect of T2, thoracic spine, currently on Opdivo. Nodule in the right lower lobe noted to be mildly enlarged, there was right paratracheal mediastinal nodule versus lymph node slightly enlarged, this could represent disease progression. he is status post robotic-assisted thoracoscopic right upper lobectomy and lymph node dissection, and chemotherapy, with recurrence of metastatic lung cancer #3. Hypertension, hyperlipidemia #4. Coronary artery disease with previous stenting #5. Anxiety, depression #6. Nicotine dependence, currently in remission #7. Hypothyroidism #8. GERD/Reflux Plan: The patient was seen and evaluated by Dr. Roldan. He is stable from pulmonary standpoint and could be cleared for discharge. He'll follow-up in our office in 1-2 weeks' time. Continue his home pulmonary medications. He is encouraged to call sooner with any recurrence of symptoms or other questions or concerns. I, the cosigning physician, performed a history & physical examination of the patient. Lungs sounds scattered rhonchi, end expiratory wheeze. Maintaining good O2 saturations in the 90s on 2 L/m per nasal cannula. I discussed the assessment and plan of care with my nurse practitioner, Delfina Cummings. I attest to the above note as dictated by her.
--- NOTE | 2018-06-24 05:14 | DS ---
DISCHARGE SUMMARY DATE OF ADMISSION: June 17, 2018. DATE OF DISCHARGE: June 23, 2018. FINAL DIAGNOSES: 1. Acute severe chronic obstructive pulmonary disease exacerbation. 2. Pneumonia, suspect gram-negative organism. 3. Acute on chronic hypoxic respiratory failure, baseline on 3 L oxygen. 4. Metastatic squamous cell lung cancer with bony metastatic disease in the region of T12 thoracic spine on Opdivo. 5. Status post bronchoscopy, right upper lobe lobectomy, lymph node dissection with chemotherapy, recurrence of metastatic lung cancer. 6. Essential hypertension. 7. Hyperlipidemia. 8. Coronary artery disease with prior history of stent. 9. Anxiety and depression, not otherwise specified. 10.Hypothyroid. 11.Gastroesophageal reflux disease. 12.Chronically elevated right diaphragm. 13.Restless legs syndrome. 14.Benign prostatic hypertrophy. 15.Coronary artery disease with prior history of stent to the RCA in 2007. 16.Paroxysmal atrial fibrillation patient chronically on Eliquis. CONSULTATIONS: Dr. Roldan from Pulmonary; Dr. Herber Morton from Radiation Oncology, Dr. Palacios from Hematology. HOSPITAL COURSE: This is a patient with the above malignancy, presented with rather shortness of breath, hypoxic, treated for pneumonia, COPD exacerbation, also did receive some Lasix for fluid overload. The patient was requiring high-flow oxygen. By the time of discharge, down to his baseline 3 L doing well, ambulating, tolerating his diet. Overall feeling much better. The patient will have radiation treatment starting hopefully next week. Care was discussed with the patient and . EXAMINATION: Afebrile. Pulse 85, respiratory rate 22, blood pressure 127/74, pulse ox 92 percent on 3 L. Lungs decreased breath sounds. Cardiovascular: 1st and 2nd sounds normal. INVESTIGATIONS: Potassium 4.2, BUN 24, creatinine 0.75. DISCHARGE MEDICATIONS: 1. Protonix 40 mg q.h.s. 2. Lotrel 5/10 1 capsule p.o. daily. 3. Vitamin D3 5000 units p.o. at bedtime. 4. Eliquis 5 mg p.o. b.i.d. 5. Celexa 20 mg p.o. daily. 6. Flomax 0.4 mg p.o. daily. 7. Claritin 5 mg q.12. 8. Dulera 200/5 2 puffs b.i.d. 9. Requip 1 mg b.i.d. 10.Thiamine 250 mg daily. 11.Xanax 0.5 p.o. daily. 12.Neurontin 200 mg q.h.s. 13.Probiotic 1 capsule p.o. daily. 14.Compazine 10 mg q.6h p.r.n. 15.Lidoderm 5% patch daily p.r.n. 16.Prednisone 5 mg b.i.d. after taper. 17.Dilaudid 4 mg q.4h p.r.n. 18.Duragesic 50 mcg patch every 72 hours. 19.DuoNeb q.i.d. 20.Levaquin 750 mg a day 5 tablets. 21.Prednisone taper. Discontinued medications include Lopressor, Spiriva, hydroxyzine. FOLLOWUP: Follow up with Dr. Shane on June 28, 2018, follow up with Dr. Nunez on July 10, 2018, follow up with Dr. Roldan on July 07, 2018. Home oxygen to continue. Labs, CBC, BMP in 3-[address] Shane. MMPATTYL / IJN: [id number] /
== END 2018-06-23 16:05 | disposition home or self-care (01) | DRG 177 ==
LOC: EC 13:11 → 3SCARD 15:26
PROVIDERS: ADMIT Hospitalist; ATTEND Hospitalist
DX: J15.6 Pneumonia due to other Gram-negative bacteria (principal); J96.21 Acute and chronic respiratory failure with hypoxia; S22.41XA Multiple fractures of ribs, right side, initial encounter for closed fracture; C34.90 Malignant neoplasm of unspecified part of unspecified bronchus or lung; C79.51 Secondary malignant neoplasm of bone; E87.1 Hypo-osmolality and hyponatremia; M33.20 Polymyositis, organ involvement unspecified; E03.9 Hypothyroidism, unspecified; E78.5 Hyperlipidemia, unspecified; E87.70 Fluid overload, unspecified; F17.200 Nicotine dependence, unspecified, uncomplicated; F32.9 Major depressive disorder, single episode, unspecified; F41.9 Anxiety disorder, unspecified; G25.81 Restless legs syndrome; I11.9 Hypertensive heart disease without heart failure; I25.10 Atherosclerotic heart disease of native coronary artery without angina pectoris; I48.0 Paroxysmal atrial fibrillation; J43.9 Emphysema, unspecified; J84.10 Pulmonary fibrosis, unspecified; K21.9 Gastro-esophageal reflux disease without esophagitis; N40.0 Benign prostatic hyperplasia without lower urinary tract symptoms; T45.1X5A Adverse effect of antineoplastic and immunosuppressive drugs, initial encounter; Z79.01 Long term (current) use of anticoagulants; Z79.51 Long term (current) use of inhaled steroids; Z79.52 Long term (current) use of systemic steroids; Z79.899 Other long term (current) drug therapy; Z80.1 Family history of malignant neoplasm of trachea, bronchus and lung; Z82.49 Family history of ischemic heart disease and other diseases of the circulatory system; Z83.3 Family history of diabetes mellitus; Z85.118 Personal history of other malignant neoplasm of bronchus and lung; Z95.5 Presence of coronary angioplasty implant and graft; Z99.81 Dependence on supplemental oxygen; Z91.041 Radiographic dye allergy status; Z91.048 Other nonmedicinal substance allergy status; Z90.49 Acquired absence of other specified parts of digestive tract; Z90.2 Acquired absence of lung [part of]; Z66 Do not resuscitate
CPT/HCPCS: 36415; 71045; 71046; 80048; 80053; 81003; 83036; 83605; 83735; 84145; 84484; 85025; 85610; 85730; 87040; 87070; 87205; 93005; 94640; 94660; 94760; 96365; 96375; 99291

== ENCOUNTER → 2018-07-10 | Outpatient (CLI) | payer MEDICARE ==
--- NOTE | 2018-07-10 12:00 | CT ---
EXAMINATION TYPE: CT chest wo con DATE OF EXAM: 07/10/2018 COMPARISON: 06/11/2018 HISTORY: Metastatic lung cancer, oxygen dependent CT DLP: 499.[address] of the chest was performed with lung and mediastinal window settings submitted. The la ck of contrast limits evaluation of the vascular, mediastinal and parenchymal structures including th e upper abdomen. LUNGS: Stable left fibrotic and emphysematous changes noted throughout both lung dietz. Increasing s ize right upper lobe pulmonary nodule measuring 7.2 mm versus 4 mm previously image 13. Nodular densi ty right upper lobe anteriorly measures 6 mm is 4 mm previously image 21. Pleural-based nodule right lower lobe posteriorly 7 mm image 23 multiple additional pleural-based the nodules right lower lobe r emain unchanged. Left lower lobe pulmonary nodule measures 1 cm versus 7 mm image 44. Lingular nodule measures 7 mm with 7 mm. MEDIASTINUM/CARLOS: Thoracic aorta is of normal caliber with limited evaluation given lack of contrast . Atheromatous changes noted. Mild cardiomegaly. No evidence for mediastinal mass. No lymph nodes greater than 1cm. UPPER ABDOMEN: No significant abnormality is seen. OTHER: Right T2 pedicle lesion is again noted. Multiple right-sided rib fractures. IMPRESSION: 1. Multiple pulmonary nodules most of which have demonstrated slight increase in size. 2. Persistent fibrotic and emphysematous changes. 3. Persistent lytic right T2 lesion.
== END | disposition home or self-care (01) ==
LOC: RADCTMAIN 11:00
PROVIDERS: ATTEND Internal Medicine Hematology & Oncology
DX: C34.11 Malignant neoplasm of upper lobe, right bronchus or lung (principal); J84.10 Pulmonary fibrosis, unspecified; J43.9 Emphysema, unspecified; R91.8 Other nonspecific abnormal finding of lung field; S24.112A Complete lesion at T2-T6 level of thoracic spinal cord, initial encounter; Z91.041 Radiographic dye allergy status; Z88.5 Allergy status to narcotic agent
CPT/HCPCS: 71250